=== PATIENT | female | born 1960 | race Caucasian/White ===

== ENCOUNTER 2022-03-20 18:59 | Inpatient (IN) | payer BC, OTHER, SELFPAY ==
[2022-03-20] VITALS (12 sets, daily range): BP systolic 113–145; BP diastolic 50–90; PULSE 91–115; RESP 9–20; O2SAT 90–99
--- NOTE | ~2022-03-20 | XR_ITS ---
EXAMINATION: XR chest 1V portable DATE: 03/20/2022 19:41 INDICATION: Dyspnea. Supraventricular tachycardia. TECHNIQUE: frontal view of the chest was obtained. COMPARISON: Chest CT dated 03/29/2017 FINDINGS: Patient is rotated towards the left. Azygos lobe and fissure in the right upper lung zone. Calcified nodules in the right lower lung zone consistent with old granulomatous disease. Opacities extending b etween the apex of the heart and the left costophrenic angle corresponding to a small pericardial fat pad and adjacent lingular atelectasis/scarring. No new airspace opacities, pulmonary edema, pleural effusion or pneumothorax. The cardiomediastinal silhouette is normal. IMPRESSION: 1. No acute cardiopulmonary disease. Reviewed, dictated and finalized at location A.
--- NOTE | 2022-03-20 19:18 | ECG_ITS ---
Measurements Intervals [place] Rate: 120 P: 60 OR: 124 QRS: 30 QRSD: 90 T: 61 QT: 282 QTc: 400 Interpretive Statements SINUS TACHYCARDIA ABNORMAL RHYTHM ECG NO PREVIOUS ECG AVAILABLE FOR COMPARISON Electronically Signed On 03-21-2022 7:16:10 CDT by Richard Corea M.D.
--- NOTE | 2022-03-20 19:23 | ED.GENADULT ---
HPI - General Adult General Chief complaint: Arrhythmia/Palpitations Stated complaint: hr 200's Time Seen by Provider: 03/20/22 19:14 History of Present Illness HPI narrative: This is a 62-year-old female with history of asthma and COPD presenting the ED for rapid heart rate. The patient was actually an urgent care which she wanted to be evaluated for COVID due to exposure in her family. At the urgent care she was found to have a heart rate in the 200s. EMS was called and she was brought to the hospital. EMS was unable to obtain a blood pressure EN route or an IV. When the patient arrived here she was converted from a heart rate of 222to a heart rate of 120. Patient has no history of SVT. She is not complaining of chest pain or palpitations at this time. She is still complaining of mild dyspnea. She has also had flu-like symptoms including some weakness chills and nausea. She has not had any vomiting or diarrhea. Patient has no history of blood clots, recent surgeries or cancers. Patient does not have lower extremity edema or history of heart failure. She is not vaccinated against COVID-19. Related Data Home Medications Medication Instructions Recorded Confirmed albuterol sulfate 90 mcg/actuation inhalation 03/20/22 03/20/22 aerosol inhaler amlodipine 2.5 mg tablet mg 03/20/22 atorvastatin 40 mg tablet mg 03/20/22 calcium carbonate 600 mg calcium mg 03/20/22 (1,500 mg) tablet clotrimazole-betamethasone 1 topical 03/20/22 %-0.05 % lotion cyclobenzaprine 10 mg tablet mg 03/20/22 dulaglutide 3 mg/0.5 mL mg subcut 03/20/22 subcutaneous pen injector (Trulicity) duloxetine 30 mg capsule,delayed mg PO 03/20/22 release duloxetine 60 mg capsule,delayed mg PO 03/20/22 release empagliflozin 10 mg tablet mg 03/20/22 (Jardiance) estradiol 0.01% (0.1 mg/gram) vaginal 03/20/22 vaginal cream fluticasone furoate 200 inhalation 03/20/22 mcg-vilanterol 25 mcg/dose inhalation powder (Breo Ellipta) hydrochlorothiazide 25 mg tablet mg 03/20/22 insulin detemir U-100 100 unit/mL unit subcut 03/20/22 (3 mL) subcutaneous pen (Levemir FlexTouch U-100 Insulin) metformin 1,000 mg tablet mg 03/20/22 montelukast 10 mg tablet mg 03/20/22 olmesartan 20 mg tablet mg 03/20/22 omeprazole 20 mg capsule,delayed mg 03/20/22 release Allergies Allergy/AdvReac Type Severity Reaction Status Date / Time ibuprofen Allergy Intermediate ESOPHAGEAL Verified 03/20/22 22:48 SPASMS bupropion Allergy Mild Other Verified 03/20/22 22:48 codeine Allergy Mild ITCH, Verified 03/20/22 22:48 NAUSEA propoxyphene Allergy Mild Unknown Verified 03/20/22 22:48 simvastatin Allergy Mild RASH Verified 03/20/22 22:48 tetracycline Allergy Mild RASH Verified 03/20/22 22:48 adhesive tape Allergy Unknown Unknown Verified 03/20/22 22:48 prednisone AdvReac Mild VOMITING Verified 03/20/22 22:48 Review of Systems Review of Systems: CONSTITUTIONAL: Denies night sweats. EYES: No eye pain ENT: Denies rhinorrhea CARDIOVASCULAR: Denies palpitations RESPIRATORY: Denies hemoptysis GASTROINTESTINAL: Denies hematemesis GENITOURINARY: Denies hematuria. SKIN: Denies rash MUSCULOSKELETAL: Denies myalgia. NEUROLOGIC: Denies weakness. PSYCHIATRIC: Denies delusions PMFSH Past Medical History Medical History (Updated 03/20/22 @ 23:53 by Stephen Salgado MD) COPD (chronic obstructive pulmonary disease) Diabetes Esophageal spasm Fibromyalgia HTN (hypertension) Spigelian hernia Surgical History Surgical History (Updated 03/20/22 @ 19:27 by Stephen Salgado MD) History of bladder surgery History of cholecystectomy Previous back surgery Social History Social History (Updated 03/20/22 @ 19:27 by Stephen Salgado MD) Social History: Patient denies alcohol use, remote tobacco use, remote marijuana Exam Narrative: APPEARANCE: When patient 1st arrived her heart rate was over 200 she was pale and diapho
[2022-03-20] MEDS: LACTATED RINGERS 1,000 ML 999 ML IV CONT (19:27)
[2022-03-20 19:44] LABS: Basophils Percent Auto 0.6 % (0.2-1.2); Eosinophils Percent Auto 0.3 % (0-4.4); Hematocrit 48.8 % (37.0-47.0); Hemoglobin 14.6 g/dL (12.0-15.0); Immature Granulocyte Absolute 0.14 K/mm3 (0.00-0.031); Lymphocytes Absolute Auto 1.51 K/mm3 (0.9-3.2); Lymphocytes Percent Auto 21.4 % (18.3-44.2); Mean Corpuscular HGB Conc 29.9 g/dl (32-36); Mean Corpuscular Hemoglobin 27.6 pg (26-34); Mean Corpuscular Volume 92.2 fl (80-100); Mean Platelet Volume 9.7 fl (7.4-10.4); Monocytes Absolute Auto 0.7 K/mm3 (0.1-0.6); Monocytes Percent Auto 9.8 % (2.6-8.5); Neutrophils Absolute Auto 4.7 K/mm3 (1.3-6.7); Neutrophils Percent Auto 65.9 % (45.5-73.1); Platelet Count Result 295 k/mm3 (150-375); Red Blood Count 5.29 M/mm3 (4.2-5.4); Red Cell Distribution Width 17.1 % (11.5-14.5); White Blood Count 7.1 K/mm3 (4.5-10.0)
--- NOTE | 2022-03-20 19:51 | PC.NURSE ---
19:51 blood glucose 240 mg/dL
[2022-03-20 19:54] LABS: Anion Gap 12 mmol/L (8-16); Blood Urea Nitrogen 25 mg/dL (7-17); Calcium 8.7 mg/dL (8.4-10.2); Carbon Dioxide 32 mmol/L (22-30); Chloride 95 mmol/L (98-107); Estimated CRCL calculation 84 ml/min; Estimated Glomerular Filt Rate > 60; Glucose 243 mg/dL (65-110); INR 0.9; Potassium 3.8 mmol/L (3.4-5.0); Sodium 139 mmol/L (137-145)
[2022-03-20 19:55] LABS: Magnesium 1.8 mg/dL (1.6-2.3)
[2022-03-20 19:55] LABS: Glucose Point of Care 240 mg/dl (65-105)
[2022-03-20 19:56] LABS: Partial Thromboplastin Time 30.9 SECONDS (22.3-36.8)
[2022-03-20 20:01] LABS: Hypochromasia 1+ (NORMAL); Ovalocytes 1+ (NORMAL); Platelet Estimate Adequate (Adequate)
[2022-03-20 20:12] LABS: NT Pro B Type Natriuretic Pept 226 pg/mL (5-100)
[2022-03-20 20:22] LABS: SARS-CoV-2 RNA PCR Positive
[2022-03-20] MEDS: ASPIRIN 81 MG CHEWABLE TABLET 324 MG PO (20:49)
[2022-03-20 20:53] LABS: D Dimer 0.35 ug/mL (<0.48)
[2022-03-20 23:59] LABS: Alanine Aminotransferase 35 U/L (6-35); Albumin Level 3.6 g/dL (3.5-5.1); Alkaline Phosphatase 189 U/L (38-126); Anion Gap 8 mmol/L (8-16); Aspartate Amino Transferase 58 U/L (14-36); Bilirubin,Total 0.4 mg/dL (0.2-1.3); Blood Urea Nitrogen 18 mg/dL (7-17); Calcium 7.8 mg/dL (8.4-10.2); Carbon Dioxide 35 mmol/L (22-30); Chloride 97 mmol/L (98-107); Estimated CRCL calculation 113 ml/min; Estimated Glomerular Filt Rate > 60; Glucose 133 mg/dL (65-110); Potassium 3.8 mmol/L (3.4-5.0); Sodium 140 mmol/L (137-145)
[2022-03-21] VITALS (19 sets, daily range): BP systolic 120–149; BP diastolic 59–83; PULSE 78–103; RESP 15–20; TEMP 36.2–36.8; O2SAT 93–100; BMI 34.2
--- NOTE | 2022-03-21 | ECHO_ITS ---
Patient Info Name: Darlyn Zhu Age: 62 years : 1960 Gender: Female Ht: 66 in Wt: 212 lbs BSA: 2.15 m2 HR: 93 bpm BP: 139 / 78 mmHg Heart Rhythm: Sinus Rhythm Technical Quality: Good Exam Date: 03/21/2022 9:23 AM Exam Location: [facility] Pulmonary Patient Status: Inpatient Admit Date: 03/21/2022 Staff Ordering Physician: Rkii Salinas DO Grubber: Dominique Wheatley [facility] Attending Provider: Fiordaliza Johnson Exam Type: CA echo doppler color flow Study Info Indications I47.1 - Supraventricular tachycardia Complete two-dimensional, color flow and Doppler transthoracic echocardiogram is performed. Summary 1. Complete two-dimensional, color flow and Doppler transthoracic echocardiogram is performed. 2. There is mild concentric increased left ventricular wall thickness. 3. Normal left ventricular systolic function. 4. Mild mitral annular calcification. Left Ventricle Left ventricular chamber dimension is normal. There is mild concentric increased left ventricular wall thickness. The left ventricular diastolic function is grade I diastolic dysfunction. Normal left ventricular systolic function. Right Ventricle Right ventricular chamber dimension is normal. Left Atria Left atrial chamber dimension is normal. Right Atria Right atrial chamber dimension is normal. Aortic Valve The aortic valve is normal. Pulmonic Valve The pulmonic valve is not well visualized. Mitral Valve The mitral valve has normal leaflets. The mitral valve annulus is mildly calcified. Tricuspid Valve The tricuspid valve leaflets are normal. Pericardium/Pleural The pericardium appears normal. Aorta The aortic root size at the sinus of Valsalva is normal. Left Ventricular Outflow Tract Name Value Normal LVOT 2D LVOT Diameter 2.2 cm LVOT Doppler LVOT Peak Gradient 3 mmHg LVOT Mean Gradient 2 mmHg LVOT VTI 22 cm LVOT VTI/AV VTI Ratio 1.0 LVOT Stroke Volume 81 ml LVOT CO 6.7 l/min LVOT CI 3.1 l/min/m2 Pulmonic Valve Name Value Normal PV Doppler PV Peak Gradient 4 mmHg Mitral Valve Name Value Normal MV Doppler MV Decel [place] 967 cm/s2 MV PHT 29 ms MV Area (PHT) 7.6 cm2 4.0-5.0 MV Diastolic Function
[2022-03-21 00:38] LABS: Troponin I 0.132 ng/mL (0.000-0.034)
--- NOTE | 2022-03-21 01:27 | ADMGEN ---
This patient, Darlyn Zhu, was admitted to IMU Room 204-01 on 03/21/22 at 0114. Patient/family oriented to hospital policies and general routines including ID bracelet, bed and alarms, visiting hours, pain management, procedures, bathroom and other care routines, personal items, smoking policy, room service/diet, and visiting hours. Information on how to activate the Rapid Response Team has been discussed. Patient/Family are encouraged to report perceived risks to care and to ask questions if they do not understand what they are told or what they should do.
--- NOTE | 2022-03-21 04:41 | PM.IMHP ---
H&P: HPI History of Present Illness Date/Time: 03/21/22 04:41 Chief Complaint: SOB, symptomatic SVT Narrative: Greater than 30 minute spent reviewing chart, evaluating, treating, counseling patient. Anticipate a greater than 48 hour admission, will admit as inpatient. 62-year-old female past medical history of COPD, type 2 diabetes on insulin, HTN, fibromyalgia, Raynaud's phenomenon with esophageal spasms. Presents with shortness of breath for the past day. Patient reports her grandchildren came to visit her a couple of days ago, and they were found to be COVID positive. Patient's began to have significant malaise and was also found to be COVID positive yesterday. Patient herself began to have significant malaise and shortness of breath. She became dizzy and lightheaded and went to urgent care for further evaluation. Upon arrival to urgent care, patient's heart rate found to be in the 200s. Patient was reportedly very diaphoretic. EMS was called, and EN route patient was noted to be altered. EMS attempted to obtain blood pressure, however was not able to get a reading. By the time patient arrived to the ED, patient was more alert and heart rate down to the 110s. Blood pressure stable on arrival. Patient found to be slightly hypoxic into the upper 80s, improved with 2 L nasal cannula. Patient now states she feels much better. Denies fevers/chills, sore throat, muscle aches, nausea/vomiting, diarrhea/constipation, dysuria/hematuria. Patient does report dry cough. Patient found to be COVID positive on arrival. Other labs remarkable for normal white count. Initial troponin 0.05, subsequent troponin 0.132. EKG showing sinus tach with heart rate in 120s. Chest x-ray clear. Patient given dose of Decadron. Of note, patient is unvaccinated Review of Systems Review of Systems: Ten point ROS reviewed, and negative unless otherwise specified per HPI [facility] Past Medical History Medical History (Updated 03/21/22 @ 04:52 by Riki Salinas DO) COPD (chronic obstructive pulmonary disease) Diabetes Esophageal spasm Fibromyalgia HTN (hypertension) Spigelian hernia Surgical History Surgical History (Updated 03/20/22 @ 19:27 by Stephen Salgado MD) History of bladder surgery History of cholecystectomy Previous back surgery Social History Social History (Updated 03/20/22 @ 19:27 by Stephen Salgado MD) Social History: Patient denies alcohol use, remote tobacco use, remote marijuana Smoking packs per day: 2 Smoking cigarettes per day: 40.0 Years smoked: 35 Smoking pack-years: 70.00 Smoking status: Former smoker Tobacco type: cigarettes Second hand tobacco smoke exposure: No Alcohol intake: never Substance use: never Substance use type: does not use Spiritual care concerns: No Meds Home Medications and Allergies Home Medications Medication Instructions Recorded Confirmed Type albuterol sulfate 90 mcg/actuation 2 inh inhalation Q4H PRN Shortness 03/20/22 03/21/22 History aerosol inhaler Of Breath Or Wheezing amlodipine 2.5 mg tablet 2.5 mg PO BID 03/20/22 03/21/22 History atorvastatin 40 mg tablet 40 mg PO QHS 03/20/22 03/21/22 History calcium carbonate 600 mg calcium 1,200 mg PO DAILY 03/20/22 03/21/22 History (1,500 mg) tablet clotrimazole-betamethasone 1 1 applic topical DAILY PRN Itching 03/20/22 03/21/22 History %-0.05 % lotion cyclobenzaprine 10 mg tablet 10 mg PO TID PRN Muscle Spasm 03/20/22 03/21/22 History dulaglutide 3 mg/0.5 mL 3 mg subcut WEEKLY 03/20/22 03/21/22 History subcutaneous pen injector (Trulicity) duloxetine 30 mg capsule,delayed 30 mg PO HS 03/20/22 03/21/22 History release duloxetine 60 mg capsule,delayed 60 mg PO HS 03/20/22 03/21/22 History release empagliflozin 10 mg tablet 10 mg PO DAILY 03/20/22 03/21/22 History (Jardiance) estradiol 0.01% (0.1 mg/gram) vaginal 03/20/22 History vaginal cream fluticasone furoate 200 1 inh
[2022-03-21 05:04] LABS: Basophils Percent Auto 0.8 % (0.2-1.2); Eosinophils Percent Auto 0.6 % (0-4.4); Hematocrit 44.1 % (37.0-47.0); Hemoglobin 13.5 g/dL (12.0-15.0); Immature Granulocyte Percent A 1.9 % (0-0.5); Lymphocytes Absolute Auto 1.15 K/mm3 (0.9-3.2); Lymphocytes Percent Auto 22.3 % (18.3-44.2); Mean Corpuscular HGB Conc 30.6 g/dl (32-36); Mean Corpuscular Hemoglobin 28.2 pg (26-34); Mean Corpuscular Volume 92.1 fl (80-100); Monocytes Absolute Auto 0.1 K/mm3 (0.1-0.6); Monocytes Percent Auto 2.7 % (2.6-8.5); Neutrophils Absolute Auto 3.7 K/mm3 (1.3-6.7); Neutrophils Percent Auto 71.7 % (45.5-73.1); Platelet Count Result 291 k/mm3 (150-375); Red Blood Count 4.79 M/mm3 (4.2-5.4); Red Cell Distribution Width 16.7 % (11.5-14.5); White Blood Count 5.2 K/mm3 (4.5-10.0)
[2022-03-21 05:13] LABS: INR 0.9
[2022-03-21 05:15] LABS: Alanine Aminotransferase 36 U/L (6-35); Estimated CRCL calculation 117 ml/min; Estimated Glomerular Filt Rate > 60
[2022-03-21 05:24] LABS: Hemoglobin A1C 7.4 % (<5.7)
[2022-03-21 05:27] LABS: Troponin I 0.134 ng/mL (0.000-0.034)
[2022-03-21 05:37] LABS: Alanine Aminotransferase 38 U/L (6-35); Albumin Level 3.5 g/dL (3.5-5.1); Alkaline Phosphatase 197 U/L (38-126); Anion Gap 8 mmol/L (8-16); Aspartate Amino Transferase 64 U/L (14-36); Bilirubin,Total 0.4 mg/dL (0.2-1.3); Blood Urea Nitrogen 16 mg/dL (7-17); Calcium 8.6 mg/dL (8.4-10.2); Carbon Dioxide 32 mmol/L (22-30); Chloride 97 mmol/L (98-107); Estimated CRCL calculation 117 ml/min; Estimated Glomerular Filt Rate > 60; Glucose 213 mg/dL (65-110); Potassium 4.5 mmol/L (3.4-5.0); Sodium 137 mmol/L (137-145)
[2022-03-21] MEDS: CALCIUM GLUCONATE 1,000 MG/10 ML VIAL 1000 MG IV PUSH (05:45)
[2022-03-21] MEDS: REMDESIVIR 200 MG/NS 250 ML 200 MG/250 ML BAG 250 MG IVPB (06:02)
[2022-03-21 06:07] LABS: Thyroid Stimulating Hormone 0.318 uIU/mL (0.465-4.680)
[2022-03-21 08:45] LABS: Glucose Point of Care 213 mg/dl (65-105)
[2022-03-21] MEDS: CALCIUM CARBONATE (OSCAL) 500 MG TABLET 1000 MG PO (09:32)
[2022-03-21] MEDS: OLMESARTAN MEDOXOMIL 20 MG TABLET PO (09:32)
[2022-03-21] MEDS: CHOLECALCIFEROL 1,000 UNITS TABLET 5000 UNITS PO (09:32)
[2022-03-21] MEDS: METOPROLOL TARTRATE 6.25 MG TABLET PO ×2 (09:32→21:11)
[2022-03-21] MEDS: hydroCHLOROthiazide 25 MG TABLET PO (09:32)
[2022-03-21] MEDS: PANTOPRAZOLE 40 MG TABLET PO (09:32)
[2022-03-21] MEDS: amLODIPine BESYLATE 2.5 MG TABLET PO (09:32)
[2022-03-21] MEDS: ENOXAPARIN 40 MG/0.4 ML SYRINGE SUB-Q (09:33)
[2022-03-21] MEDS: INSULIN ASPART (*BKC) 100 UNITS/ML SUB-Q ×2 (09:33→17:29)
[2022-03-21 11:53] LABS: Free T4 Free Thyroxine 1.14 ng/mL (0.78-2.19)
[2022-03-21 12:16] LABS: Glucose Point of Care 174 mg/dl (65-105)
--- NOTE | 2022-03-21 12:33 | PM.CNCAR ---
Assessment and Plan Assessment and plan (1) Paroxysmal supraventricular tachycardia: Code(s): I47.1 - Supraventricular tachycardia Status: Acute Plan This is a 62-year-old woman with the background of hypertension diabetes COPD and Raynaud's phenomenon. She enters the hospital after being found to be in SVT with which she was remarkably be minimally symptomatic. She spontaneously has converted to sinus rhythm and is asymptomatic this morning. She describes having had 2 previous heart evaluations with catheterization is being done for chest pain evaluation with negative results. She has no significant abnormalities on her cardiovascular exam at this time. I am going to recommend transitioning her calcium channel selvin to diltiazem in hopes of preventing recurrences of her SVT. When she does get discharged from the hospital I will arrange follow-up for this in the office. While she is in the hospital I will follow her with you. Richard Corea MD [facility] History of Present Illness History of Present Illness Consult date/time: 03/21/22 12:33 Reason For Visit: covid Narrative: This is a 62-year-old lady I am seeing at the request of the hospitalist because of supraventricular tachycardia with which she was seen in the emergency room and admitted last evening. The patient is not known to have any significant cardiac problems in the past. The history is somewhat interesting in that she was largely asymptomatic of this. She went to an Urgent Care Center seeking COVID testing because several family members have been at a family gathering have tested positive for COVID and she wanted to get tested. She states that she has been having some recent onset of symptoms of more exertional fatigability a but no other dramatic symptoms and really no direct awareness of tachycardia or palpitations. While she was in the urgent care center her vital signs showed her to be very tachycardic she was sent to the emergency room where electrocardiogram I believe on route showed SVT with a narrow QRS and arrhythmia most typical of AV node reentry. She has no history of anything like this in the past and she spontaneously reverted back to sinus rhythm. The ER physician's note states she appeared to be somewhat diaphoretic and short of breath when this was going on which of course is not surprising. She was not having any chest pain or other symptoms. She was admitted to IMU where she remained 204 and has not had any arrhythmias since then. Since converting out of this last evening she has been asymptomatic. The patient reports no prior history of cardiac problems. She has had cardiac catheterization at least 2 or 3 times in the past a consistently with normal results. She had an episode of chest pain that occurred while she was feeling ill on a trip in [place] many years ago. An angiogram at a hospital was apparently normal at that time. She describes having had another angiogram he done here at [facility] a long time ago which was also negative. She states physicians have told her on a couple of occasions the symptoms appear to be resulting from a soft gel spasm rather than coronary disease. Her past medical history is primarily remarkable for hypertension, diabetes COPD and Raynaud's phenomenon. Review of Systems Constitutional: Constitutional: Reports no additional constitutional complaints Eyes: Eyes: Reports no additional eye complaints ENT: Reports system reviewed and no additional complaints, except as documented Cardiovascular: Cardiovascular: Reports as per HPI Respiratory: Respiratory: Reports dyspnea Gastrointestinal: Gastrointestinal: Reports as per HPI Musculoskeletal: Musculoskeletal: Reports no additional musculoskeletal complaints Integumentary/Breasts: Skin/Breast: Reports system reviewed and no additional complaints, except as docu Neurologic: Reports system reviewed and no additional complaints, except a
--- NOTE | 2022-03-21 12:47 | PM.IMPN ---
Progress Note: A&P Assessment and Plan (1) COVID: Code(s): U07.1 - COVID-19 Status: Acute Assessment and Plan: - Patient unvaccinated, citing that she was told that the Vaccine was made from aborted fetus material and she is pro-life. - Continue Decadron and Remdesivir with Albuterol p.r.n., - Continue Telemetry given her recent PSVT. - Continue supplemental oxygen and titrate oxygen as needed. - CPAP/BiPap at HS (2) Paroxysmal supraventricular tachycardia: Code(s): I47.1 - Supraventricular tachycardia Status: Acute Assessment and Plan: - Suspect secondary to a combination of underlying COPD as well as acute infection causing hypoxia. - ECHO performed and result is pending. - Cardiology consulted and changed her CCB to Diltiazem. - Continue Telemetry (3) Fibromyalgia: Code(s): M79.7 - Fibromyalgia Status: Acute Assessment and Plan: - Continue Cymbalta and Flexeril (4) Diabetes: Code(s): E11.9 - Type 2 diabetes mellitus without complications Status: Acute Assessment and Plan: - Hold Jardiance. - Continue Lantus 54 units HS - Continue SSI moderately dosed. - Continue Trulicity when it is brought in from home. - HgbA1C is 7.4. (5) HTN (hypertension): Code(s): I10 - Essential (primary) hypertension Status: Acute Assessment and Plan: - Continue HCTZ, and change Amlodipine to Diltiazem. (6) COPD (chronic obstructive pulmonary disease): Code(s): J44.9 - Chronic obstructive pulmonary disease, unspecified Status: Acute Assessment and Plan: - Continue Breo and Singulair (7) Raynauds disease: Code(s): I73.00 - Raynaud's syndrome without gangrene Status: Acute Assessment and Plan: - Continue Olmesartan Time Spent With Patient Time with patient: 25 - 35 minutes Subjective Date/time seen: 03/21/22 0930 This pt was examined at the bedside this AM in interval assessment. She was admitted overnight with COVID, Acute Hypoxic Respiratory Failure, and SVT. She has no complaints of CP this morning, has had interval improvement in her respiratory status and is now on 1-2L supplemental oxygen. She is receiving Remdesivir and Dexamethasone therapy and was evaluated by Cardiology today. She is going to be transitioned to Diltiazem in place of her CCB in hopes of preventing any further SVT. Dr. Corea is in agreement of following up with her in the office upon discharge. Review of Systems Review of Systems: All systems reviewed & are unremarkable except as noted in HPI and below Exam Const: General: comfortable and no acute distress HENMT: General nose exam: Normal nares present and no epistaxis Mouth: Yes moist mucous membranes Eyes: General: appearance normal, both eyes and all related structures Sclera: sclerae normal and normal sclerae Pupils: Equal, round and reactive pupils present EOM: EOMs intact bilaterally Neck: Neck: supple and no JVD Resp: Effort & Inspection: normal respiratory effort Auscultation: clear to auscultation bilaterally Cardio: Rate: regular rate Rhythm: regular rhythm Heart sounds: no gallops, no murmurs and no rubs GI: Inspection: non-distended GI Palp: Yes Soft to palpation, No Tenderness to palpation present (GI) and No Guarding due to palpation present (GI) Auscultation: normal bowel sounds Skin: General skin exam: normal color and no rashes or lesions noted Wounds: no wounds Neuro: General: gait normal Speech: normal speech Motor exam (neuro): 5/5 motor strength present throughout and Normal motor muscle tone present throughout Sensory Exam: normal sensation Extrem: General: normal to inspection, no edema and no pedal edema Other: Freely and equally MAEW without deficits. Psych: Mental Status: mental status grossly normal Affect: normal affect Objective Data Vital Signs Vital Signs: Vital Signs - 24 hr 03/20/22 19:02 03/20/22 19
--- NOTE | 2022-03-21 13:32 | PHAR ---
The patient's home med of Trulicity 3mg/0.5ml has been verified.
[2022-03-21 16:43] LABS: Glucose Point of Care 292 mg/dl (65-105)
[2022-03-21 20:34] LABS: Glucose Point of Care 247 mg/dl (65-105)
[2022-03-21] MEDS: DULoxetine HCL 60 MG CAPSULE.DR PO (21:11)
[2022-03-21] MEDS: ASPIRIN 81 MG ENTERIC TABLET PO (21:11)
[2022-03-21] MEDS: ATORVASTATIN 40 MG TABLET PO (21:11)
[2022-03-21] MEDS: ZINC SULFATE 220 MG CAPSULE PO (21:11)
[2022-03-21] MEDS: CYANOCOBALAMIN 500 MCG TABLET PO (21:11)
[2022-03-21] MEDS: MONTELUKAST SODIUM 10 MG TABLET PO (21:11)
[2022-03-21] MEDS: INSULIN GLARGINE (*BKC) 100 UNITS/ML 54 UNITS SUB-Q (21:12)
[2022-03-21] MEDS: CYCLOBENZAPRINE HCL 10 MG TABLET PO (21:13)
[2022-03-22] VITALS: PULSE 91
[2022-03-22] MEDS: guaiFENesin 600 MG/DEXTROMETHORPHAN 30 MG SR TAB 12 HR 1 TAB PO ×2 (00:52→09:40)
--- NOTE | 2022-03-22 03:48 | PC.NURSE ---
This patient, Darlyn Zhu, was transferred to room 312 on 03/22/22 at 0347. Personal belongings sent with patient. Report given to SEAMUS Schulte. Appropriate documentation sent with patient.
--- NOTE | 2022-03-22 03:49 | PC.NURSE ---
Lexy received from IMU per bed. Report received from SEAMUS Garcia.
[2022-03-22 04:00] VITALS: PULSE 101
[2022-03-22] MEDS: CYCLOBENZAPRINE HCL 10 MG TABLET PO (04:02)
[2022-03-22 04:15] VITALS: PULSE 90; RESP 17; O2SAT 97
[2022-03-22 04:32] VITALS: BP 164/80; PULSE 105; RESP 20; TEMP 36.4; O2SAT 95
[2022-03-22 06:25] LABS: Basophils Percent Auto 0.1 % (0.2-1.2); Hematocrit 46.2 % (37.0-47.0); Hemoglobin 14.2 g/dL (12.0-15.0); Immature Granulocyte Absolute 0.06 K/mm3 (0.00-0.031); Immature Granulocyte Percent A 0.8 % (0-0.5); Lymphocytes Absolute Auto 2.13 K/mm3 (0.9-3.2); Lymphocytes Percent Auto 27.3 % (18.3-44.2); Mean Corpuscular HGB Conc 30.7 g/dl (32-36); Mean Corpuscular Hemoglobin 28.2 pg (26-34); Mean Corpuscular Volume 91.7 fl (80-100); Mean Platelet Volume 9.9 fl (7.4-10.4); Monocytes Absolute Auto 0.6 K/mm3 (0.1-0.6); Monocytes Percent Auto 8.2 % (2.6-8.5); Neutrophils Percent Auto 63.6 % (45.5-73.1); Platelet Count Result 292 k/mm3 (150-375); Red Blood Count 5.04 M/mm3 (4.2-5.4); Red Cell Distribution Width 16.8 % (11.5-14.5); White Blood Count 7.8 K/mm3 (4.5-10.0)
[2022-03-22 06:46] LABS: INR 0.9; Prothrombin Time 11.9 Seconds (11.1-14.7)
[2022-03-22 06:48] LABS: Alanine Aminotransferase 30 U/L (6-35); Alkaline Phosphatase 164 U/L (38-126); Anion Gap 10 mmol/L (8-16); Aspartate Amino Transferase 54 U/L (14-36); Bilirubin,Total 0.7 mg/dL (0.2-1.3); Blood Urea Nitrogen 19 mg/dL (7-17); Calcium 9.2 mg/dL (8.4-10.2); Carbon Dioxide 32 mmol/L (22-30); Chloride 96 mmol/L (98-107); Estimated CRCL calculation 117 ml/min; Estimated Glomerular Filt Rate > 60; Glucose 222 mg/dL (65-110); Magnesium 1.7 mg/dL (1.6-2.3); Potassium 4.4 mmol/L (3.4-5.0); Sodium 138 mmol/L (137-145)
[2022-03-22 08:00] VITALS: BP 121/69; PULSE 82; RESP 20; TEMP 35.6; O2SAT 93
--- NOTE | 2022-03-22 09:36 | P.PN_ITS ---
Progress Note: A&P Assessment and Plan (1) COVID: Code(s): U07.1 - COVID-19 Status: Acute Assessment and Plan: * Unvaccinated * Continue remdesivir, decadron an albuterol * Continue supplementary oxygen and titrate as tolerated. Patient currently satting 93% warm air * CPAP/BiPAP at HS (2) Paroxysmal supraventricular tachycardia: Code(s): I47.1 - Supraventricular tachycardia Status: Acute Assessment and Plan: * Resolved * Cardiology consulted recommend transitioning her calcium channel selvin to diltiazem * No significant finding with the echo * Continue telemetry (3) Fibromyalgia: Code(s): M79.7 - Fibromyalgia Status: Acute Assessment and Plan: * Continue Cymbalta and Flexeril (4) Diabetes: Code(s): E11.9 - Type 2 diabetes mellitus without complications Status: Acute Assessment and Plan: * Blood sugar currently under 300 * Jardiance on hold * Continue sliding scale with Accu-Cheks hypoglycemic protocol * Will continue Trulicity once it was brought by family members * Hemoglobin A1c 7.4 * Continue home Lantus at 54 units HS (5) HTN (hypertension): Code(s): I10 - Essential (primary) hypertension Status: Acute Assessment and Plan: * Blood pressure stable (6) Raynauds disease: Code(s): I73.00 - Raynaud's syndrome without gangrene Status: Acute (7) COPD (chronic obstructive pulmonary disease): Code(s): J44.9 - Chronic obstructive pulmonary disease, unspecified Status: Acute Assessment and Plan: * Stable * Continue albuterol and Singulair was supplemented oxygen needed Subjective Date/time seen: 03/22/22 09:36 Objective Data Vital Signs Vital Signs: Vital Signs - 24 hr 03/21/22 11:21 03/21/22 10:00 03/21/22 12:00 Temperature Pulse Rate 92 Respiratory Rate Blood Pressure Pulse Oximetry 98 93 Oxygen Delivery Room Air Room Air 03/21/22 12:00 03/21/22 12:00 03/21/22 16:00 Temperature 98.1 F Pulse Rate 94 93 103 H Respiratory Rate 16 Blood Pressure 147/76 H Pulse Oximetry 94 Oxygen Delivery 03/21/22 16:00 03/21/22 20:00 03/21/22 21:11 Temperature 98.2 F Pulse Rate 102 H 78 97 Respiratory Rate 16 18 Blood Pressure 140/82 Pulse Oximetry 95 Oxygen Delivery 03/21/22 20:00 03/21/22 20:00 03/21/22 20:00 Temperature 98.1 F Pulse Rate 97 97 94 Respiratory Rate 20 20 Blood Pressure 120/59 L Pulse Oximetry 98 98 Oxygen Delivery Room Air 03/22/22 00:00 03/22/22 04:00 03/22/22 04:32 Temperature 97.6 F Pulse Rate 91 101 H 105 H Respiratory Rate 20 Blood Pressure 164/80 H Pulse Oximetry 95 Oxygen Delivery 03/22/22 04:15 03/22/22 08:00 Temperature 96.0 F L Pulse Rate 90 82 Respiratory Rate 17 20 Blood Pressure 121/69 Pulse Oximetry 97 93 Oxygen Delivery Autopap Intake/Output Intake/Output: Intake & Output 03/19/22 03/20/22 03/21/22
--- NOTE | 2022-03-22 09:36 | WPDPN ---
Progress Note: A&P Assessment and Plan (1) COVID: Code(s): U07.1 - COVID-19 Status: Acute Assessment and Plan: Unvaccinated Continue remdesivir, decadron an albuterol Continue supplementary oxygen and titrate as tolerated. Patient currently satting 93% warm air CPAP/BiPAP at HS (2) Paroxysmal supraventricular tachycardia: Code(s): I47.1 - Supraventricular tachycardia Status: Acute Assessment and Plan: Resolved Cardiology consulted recommend transitioning her calcium channel selvin to diltiazem No significant finding with the echo Continue telemetry (3) Fibromyalgia: Code(s): M79.7 - Fibromyalgia Status: Acute Assessment and Plan: Continue Cymbalta and Flexeril (4) Diabetes: Code(s): E11.9 - Type 2 diabetes mellitus without complications Status: Acute Assessment and Plan: Blood sugar currently under 300 Jardiance on hold Continue sliding scale with Accu-Cheks hypoglycemic protocol Will continue Trulicity once it was brought by family members Hemoglobin A1c 7.4 Continue home Lantus at 54 units HS (5) HTN (hypertension): Code(s): I10 - Essential (primary) hypertension Status: Acute Assessment and Plan: Blood pressure stable (6) Raynauds disease: Code(s): I73.00 - Raynaud's syndrome without gangrene Status: Acute (7) COPD (chronic obstructive pulmonary disease): Code(s): J44.9 - Chronic obstructive pulmonary disease, unspecified Status: Acute Assessment and Plan: Stable Continue albuterol and Singulair was supplemented oxygen needed Subjective Date/time seen: 03/22/22 09:36 Objective Data Vital Signs Vital Signs: Vital Signs - 24 hr 03/21/22 11:21 03/21/22 10:00 03/21/22 12:00 Temperature Pulse Rate 92 Respiratory Rate Blood Pressure Pulse Oximetry 98 93 Oxygen Delivery Room Air Room Air 03/21/22 12:00 03/21/22 12:00 03/21/22 16:00 Temperature 98.1 F Pulse Rate 94 93 103 H Respiratory Rate 16 Blood Pressure 147/76 H Pulse Oximetry 94 Oxygen Delivery 03/21/22 16:00 03/21/22 20:00 03/21/22 21:11 Temperature 98.2 F Pulse Rate 102 H 78 97 Respiratory Rate 16 18 Blood Pressure 140/82 Pulse Oximetry 95 Oxygen Delivery 03/21/22 20:00 03/21/22 20:00 03/21/22 20:00 Temperature 98.1 F Pulse Rate 97 97 94 Respiratory Rate 20 20 Blood Pressure 120/59 L Pulse Oximetry 98 98 Oxygen Delivery Room Air 03/22/22 00:00 03/22/22 04:00 03/22/22 04:32 Temperature 97.6 F Pulse Rate 91 101 H 105 H Respiratory Rate 20 Blood Pressure 164/80 H Pulse Oximetry 95 Oxygen Delivery 03/22/22 04:15 03/22/22 08:00 Temperature 96.0 F L Pulse Rate 90 82 Respiratory Rate 17 20 Blood Pressure 121/69 Pulse Oximetry 97 93 Oxygen Delivery Autopap Intake/Output Intake/Output: Intake & Output 03/19/22 03/20/22 03/21/22 03/22/22 23:59 23:59 23:59 23:59 Intake Total 2420 490 Output Total 3580 Balance -1160 490 Meds/Results Medications: Active Medications Generic Name Dose Route Start Last Admin Trade Name Freq PRN Reason Stop Dose Admin Albuterol 2 puff 03/21/22 10:10 Albuterol Sulfate (*Sp) Inhaler INHALATION Q4H PRN Shortness Of Breath Or Wheezin Aspirin 81 mg 03/21/22 21:00 03/21/22 21:11 Aspirin 81 Mg Enteric Tablet PO 81 mg HS [facility] Administration Atorvastatin Calcium 40 mg 03/21/22 21:00 03/21/22 21:11 Atorvastatin 40 Mg Tablet PO 40 mg QHS BERYL Administration Calcium Carbonate 1,000 mg 03/21/22 09:00 03/21/22 09:32 Calcium Carbonate (Oscal) 500 Mg Tablet PO 1,000 mg QAM BERYL Administration Cyanocobalamin 500 mcg 03/21/22 21:00 03/21/22 21:11 Cyanocobalamin 500 Mcg Tablet PO 500 mcg HS [facility] Administration Cyclobenzaprine HCl 10 mg 03/21/22 04:37 03/22/22 04:02 Cyclobenzaprine Hcl 10 Mg Tablet PO 10
[2022-03-22] MEDS: ENOXAPARIN 40 MG/0.4 ML SYRINGE SUB-Q (09:39)
[2022-03-22] MEDS: CHOLECALCIFEROL 1,000 UNITS TABLET 5000 UNITS PO (09:40)
[2022-03-22] MEDS: dilTIAZem HCL CD 180 MG CAP.ER.24H PO (09:40)
[2022-03-22] MEDS: OLMESARTAN MEDOXOMIL 20 MG TABLET PO (09:40)
[2022-03-22] MEDS: METOPROLOL TARTRATE 6.25 MG TABLET PO (09:41)
[2022-03-22] MEDS: CALCIUM CARBONATE (OSCAL) 500 MG TABLET 1000 MG PO (09:41)
[2022-03-22] MEDS: hydroCHLOROthiazide 25 MG TABLET PO (09:41)
[2022-03-22] MEDS: INSULIN ASPART (*BKC) 100 UNITS/ML SUB-Q (09:41)
[2022-03-22] MEDS: PANTOPRAZOLE 40 MG TABLET PO (09:41)
[2022-03-22 11:53] VITALS: BP 136/93; PULSE 105; RESP 20; TEMP 36; O2SAT 92
--- NOTE | 2022-03-22 11:59 | PC.NURSE ---
02 sats 96% after 45 minutes on RA. Pt does not use oxygen at home.
--- NOTE | 2022-03-22 13:12 | PM.DS ---
DS: Admitting Diagnosis Discharge Date 03/22/2022 Admitting Diagnosis covid, SVT DS: Discharge Diagnosis Discharge Diagnosis (1) COVID: Code(s): U07.1 - COVID-19 Status: Acute Assessment and Plan: Unvaccinated Continue remdesivir, decadron an albuterol Continue supplementary oxygen and titrate as tolerated. Patient currently satting 93% warm air CPAP/BiPAP at HS Patient will discharge home with albuterol and dexamethasone (2) Paroxysmal supraventricular tachycardia: Code(s): I47.1 - Supraventricular tachycardia Status: Acute Assessment and Plan: Resolved Cardiology consulted recommend transitioning her calcium channel selvin to diltiazem No significant finding with the echo Continue telemetry Patient will need to follow up with leg assembler (3) Fibromyalgia: Code(s): M79.7 - Fibromyalgia Status: Acute Assessment and Plan: Continue Cymbalta and Flexeril (4) Diabetes: Code(s): E11.9 - Type 2 diabetes mellitus without complications Status: Acute Assessment and Plan: Blood sugar currently under 300 Jardiance on hold Continue sliding scale with Accu-Cheks hypoglycemic protocol Will continue Trulicity once it was brought by family members Hemoglobin A1c 7.4 Continue home Lantus at 54 units HS Patient with discharge home with NovoLog 5 units with blood sugar greater than 300 with the use of dexamethasone. Patient has agreed to call her primary care physician her blood sugar was uncontrolled (5) HTN (hypertension): Code(s): I10 - Essential (primary) hypertension Status: Acute Assessment and Plan: Blood pressure stable (6) Raynauds disease: Code(s): I73.00 - Raynaud's syndrome without gangrene Status: Acute (7) COPD (chronic obstructive pulmonary disease): Code(s): J44.9 - Chronic obstructive pulmonary disease, unspecified Status: Acute Assessment and Plan: Stable Continue albuterol and Singulair was supplemented oxygen needed DS: Summary Hospital Course Reason for hospitalization: [facility] [place] COVID Hospital Course: 62-year-old female past medical history of COPD, type 2 diabetes on insulin, HTN, fibromyalgia, Raynaud's phenomenon with esophageal spasms.? Patient reports of shortness of breath for the past few day.? Patient reports her grandchildren came to visit her a couple of days ago, and they were found to be COVID positive.? Patient's began to have significant malaise and was also found to be COVID positive .? Patient herself began to have significant malaise and shortness of breath.? She became dizzy and lightheaded and went to urgent care for further evaluation.? Upon arrival to urgent care, patient's heart rate found to be in the 200s. Patient was admitted into our hospital for SVT and COVID. Today agrees patient agrees that her condition has much improved she is no longer experiencing shortness of breath. She was discharged home today with dexamethasone she will also be given NovoLog and instructions for treatment of her blood sugars above 300. She also agrees to contact her primary care physician if her blood sugars not controlled. Patient notes that she has albuterol at home she can use her at home albuterol if she experience any shortness of breath. Patient denies any chest pain, nausea vomiting diarrhea, lightheadedness, vertigo, or dizziness,. Time Spent with Patient Time attestation: Total time spent providing and/or coordinating discharge services: Exam Narrative: General: Pleasant, no obvious distress noted HEENT: PERRLA, Mucous Membranes Moist and Donald, Nares Patent, Sclera Clear Neck: JVD, Supple Pulmonary: Clear to Auscultation, Normal Air Movement Cardiovascular: No Murmurs, Gallops, or Rubs, Regular Rhythm, Regular Rate Abdominal: Abdomen Soft, Non-Distended, Normal Bowel Sounds Extremities: Normal Pulses Integumentary: No Abnormalities [place]
== END 2022-03-22 15:25 | disposition home or self-care (01) | DRG 178 ==
LOC: ANHED 23:53 → ANHIMU 03-21 00:50 → ANH3MEDSUR 03-22 13:19 → ANHIMU 03-25 08:34
PROVIDERS: Nurse Practitioner Adult Health; Admitting Provider Internal Medicine; Emergency Provider Emergency Medicine; PCP Internal Medicine; Visit Provider Nurse Practitioner
DX: U07.1 COVID-19 (principal); I47.1 Supraventricular tachycardia; E11.65 Type 2 diabetes mellitus with hyperglycemia; I10 Essential (primary) hypertension; I73.00 Raynaud's syndrome without gangrene; J44.9 Chronic obstructive pulmonary disease, unspecified; M79.7 Fibromyalgia; R09.02 Hypoxemia; Z28.310 Unvaccinated for COVID-19; Z79.84 Long term (current) use of oral hypoglycemic drugs; Z79.4 Long term (current) use of insulin; Z79.899 Other long term (current) drug therapy; Z90.49 Acquired absence of other specified parts of digestive tract; Z87.891 Personal history of nicotine dependence; Z79.82 Long term (current) use of aspirin
CPT/HCPCS: 36415; 71045; 80048; 80053; 82565; 82948; 83036; 83735; 83880; 84439; 84443; 84460; 84484; 85025; 85380; 85610; 85730; 93005; 93306; 94640; 96360; 96361; 99285; A9270; C9803; J0248; J0610; J1100; J1650; J1815; J7120; U0003; U0005

== ENCOUNTER 2023-09-19 16:12 | Emergency (ER) | payer BC, OTHER, SELFPAY ==
[2023-09-19 16:31] VITALS: BP 111/57; PULSE 91; RESP 18; TEMP 36.4; O2SAT 92
[2023-09-19] MEDS: TETANUS,DIPHTHERIA,AC PERTUSSIS ADULT (0.5 ML) BOOSTRIX IM (17:40)
--- NOTE | 2023-09-19 18:24 | ED.GENADULT ---
HPI - General Adult General Chief complaint: Wound/Laceration Stated complaint: Left Hand Laceration Source: patient Mode of arrival: ambulatory Limitations: no limitations History of Present Illness HPI narrative: Patient presents for evaluation of laceration to left index finger. She was chopping an onion just prior to arrival when she accidentally cut the left index finger. She denies any considerable pain in the affected area. No loss of range of motion. No paresthesias. She is right-hand dominant. She is diabetic. States home blood sugars are fairly well controlled. She does not smoke. She is not up-to-date on tetanus. Related Data Home Medications Medication Instructions Recorded Confirmed albuterol sulfate 90 mcg/actuation 2 inh inhalation Q4H PRN Shortness 03/20/22 09/19/23 aerosol inhaler Of Breath Or Wheezing atorvastatin 40 mg tablet 40 mg PO QHS 03/20/22 09/19/23 calcium carbonate 600 mg calcium 1,200 mg PO DAILY 03/20/22 09/19/23 (1,500 mg) tablet clotrimazole-betamethasone 1 1 applic topical DAILY PRN Itching 03/20/22 09/19/23 %-0.05 % lotion cyclobenzaprine 10 mg tablet 10 mg PO TID PRN Muscle Spasm 03/20/22 09/19/23 dulaglutide 3 mg/0.5 mL 3 mg subcut WEEKLY 03/20/22 09/19/23 subcutaneous pen injector (Trulicity) duloxetine 30 mg capsule,delayed 30 mg PO HS 03/20/22 09/19/23 release duloxetine 60 mg capsule,delayed 60 mg PO HS 03/20/22 09/19/23 release empagliflozin 10 mg tablet 10 mg PO DAILY 03/20/22 09/19/23 (Jardiance) estradiol 0.01% (0.1 mg/gram) 1 applic vaginal 3XW 03/20/22 09/19/23 vaginal cream fluticasone furoate 200 1 inh inhalation DAILY 03/20/22 09/19/23 mcg-vilanterol 25 mcg/dose inhalation powder (Breo Ellipta) hydrochlorothiazide 25 mg tablet 25 mg PO DAILY 03/20/22 09/19/23 insulin detemir U-100 100 unit/mL 60 unit subcut QHS 03/20/22 09/19/23 (3 mL) subcutaneous pen (Levemir FlexTouch U-100 Insulin) metformin 1,000 mg tablet 1,000 mg PO BID 03/20/22 09/19/23 montelukast 10 mg tablet 10 mg PO QHS 03/20/22 09/19/23 olmesartan 20 mg tablet 20 mg PO DAILY 03/20/22 09/19/23 omeprazole 20 mg capsule,delayed 20 mg PO HS 03/20/22 09/19/23 release ascorbic acid (vitamin C) 1,000 mg 1 g PO HS 03/21/22 09/19/23 tablet aspirin 81 mg tablet,delayed 81 mg PO HS 03/21/22 09/19/23 release cholecalciferol (vitamin D3) 125 125 mcg PO DAILY 03/21/22 09/19/23 mcg (5,000 unit) capsule cyanocobalamin (vitamin B-12) 500 500 mcg PO HS 03/21/22 09/19/23 mcg tablet (Vitamin B-12) diphenhydramine HCl 25 mg tablet 50 mg PO HS 03/21/22 09/19/23 (Benadryl Allergy) echinacea 500 mg capsule 1,000 mg PO HS 03/21/22 09/19/23 pen needle, diabetic 31 gauge x 03/21/22 09/19/2312/29 (BD Ultra-Fine Short Pen Needle) pyridoxine (vitamin B6) 500 mg 500 mg PO HS 03/21/22 09/19/23 tablet sennosides 8.6 mg tablet (Senokot) 17.2 mg PO HS 03/21/22 09/19/23 thiamine HCl (vitamin B1) 250 mg 250 mg PO HS 03/21/22 09/19/23 tablet vitamin A 10,000 unit tablet 10,000 unit PO HS 03/21/22 09/19/23 zinc 50 mg tablet 50 mg PO HS 03/21/22 09/19/23 Allergies Allergy/AdvReac Type Severity Reaction Status Date / Time bupropion Allergy Mild Other Verified 09/19/23 16:28 codeine Allergy Mild ITCH, Verified 09/19/23 16:28 NAUSEA propoxyphene Allergy Mild Unknown Verified 09/19/23 16:28 simvastatin Allergy Mild RASH Verified 09/19/23 16:28 tetracycline Allergy Mild RASH Verified 09/19/23 16:28 adhesive tape Allergy Unknown Unknown Verified 09/19/23 16:28 prednisone AdvReac Mild VOMITING Verified 09/19/23 16:28 Review of Systems Review of Systems: CONSTITUTIONAL: Denies fever, chills, or sweats. EYES: Denies visual changes, redness, or discharge. ENT: Denies rhinorrhea, congestion, sore throat, or otalgia. CARDIOVASCULAR: Denies chest pain, palpitations, or edema. RESPIRATORY: Denies cough or dyspnea. GASTROINTESTINAL: Denies abdominal pain, nausea, vomiting, or diar
== END 2023-09-19 18:40 | disposition home or self-care (01) ==
PROVIDERS: Emergency Provider Nurse Practitioner; PCP Internal Medicine
DX: S61.211A Laceration without foreign body of left index finger without damage to nail, initial encounter (principal); W45.8XXA Other foreign body or object entering through skin, initial encounter; Y93.G9 Activity, other involving cooking and grilling; Z23 Encounter for immunization; Z87.891 Personal history of nicotine dependence; J44.9 Chronic obstructive pulmonary disease, unspecified; E11.9 Type 2 diabetes mellitus without complications; Z79.4 Long term (current) use of insulin; Z79.84 Long term (current) use of oral hypoglycemic drugs; M79.7 Fibromyalgia; I10 Essential (primary) hypertension; Z79.82 Long term (current) use of aspirin
CPT/HCPCS: 12001; 90471; 90715; 99213; G0463

== ENCOUNTER 2025-01-01 08:57 | Emergency (ER) | payer BC, OTHER, SELFPAY ==
[2025-01-01 09:00] VITALS: BP 133/73; PULSE 77; RESP 22; O2SAT 88
[2025-01-01 09:02] VITALS: BP 126/77; PULSE 82; RESP 24; O2SAT 92
[2025-01-01 09:04] VITALS: BP 126/77; PULSE 75; RESP 16; TEMP 36.4; O2SAT 98
--- OUTSIDE RECORDS SUMMARY | 2025-01-01 09:12 | XMS_ITS | Clinical Summary ---
Author Organization [facility] Address [address] [place] [address] Phone Care Team Providers Care Ux Manager Name Role Phone Constantino Babb MD Primary Care Provider [phone] Allergies Active Allergy Reactions Criticality Noted Date Comments Bupropion Hcl Shortness of Breath/Wheezing,Nausea and Vomiting High 12/31/2015 Ibuprofen Muscle Pain Low 12/31/2015 Iodinated Contrast Media Hives High 12/31/2015 Niacin Muscle Pain Low 12/31/2015 Prednisone Shortness of Breath/Wheezing,Nausea and Vomiting High 12/31/2015 Simvastatin Rash Low 12/31/2015 Tetracycline Rash Low 12/31/2015 Medications atorvastatin (LIPITOR) 10 mg tablet Take 10 mg by mouth Daily LATE. Active metFORMIN (GLUCOPHAGE) 1,000 mg tablet Take 1,000 mg by mouth 2 times daily with meals. Active esomeprazole (NEXIUM) 20 mg Capsule, Delayed Release(E.C.) Take 40 mg by mouth daily before breakfast. Active thiamine (VITAMIN B-1) 100 mg tablet Take 1 Tablet by mouth daily. Active benzonatate (TESSALON) 200 mg capsule Take 200 mg by mouth 3 times daily as needed for Cough. Active losartan (COZAAR) 50 mg tablet Take 50 mg by mouth daily. Active folic acid (FOLVITE) 400 mcg Tablet Take 400 mcg by mouth daily. Active DULoxetine (CYMBALTA) 30 mg Capsule, Delayed Release(E.C.) Take 30 mg by mouth 2 times daily. Active hydrochlorothia zide 25 mg tablet Take 25 mg by mouth daily. Active oxyCODONE (ROXICODONE) 5 mg tablet Take 5 mg by mouth every 4 hours as needed for Pain. Active cyclobenzaprine (FLEXERIL) 10 mg tablet Take 10 mg by mouth 3 times daily as needed for Spasm. Active oxyCODONE (OXYCONTIN) 40 mg Controlled Release 12 hour tablet Take 40 mg by mouth every 12 hours. Active insulin glargine (LANTUS) 100 unit/mL pen syringe Inject 50 Units by subcutaneous injection daily at bedtime. Active pregabalin (LYRICA) 75 mg Capsule Take 75 mg by mouth daily. Active OLANZapine-FLUo xetine (SYMBYAX) 6-25 mg Capsule Take 1 Capsule by mouth daily at bedtime. Active OLANZapine-FLUo xetine (SYMBYAX) 12-25 mg Capsule Take 1 Capsule by mouth daily at bedtime. Active Social History Tobacco Use Types Packs/Day Years Used Date Smoking Tobacco: Never Smokeless Tobacco: Never Alcohol Use Standard Drinks/Week Comments No 0 (1 standard drink = 0.6 oz pur e alcohol) Comments Unknown Sex and Gender Information Value Date Recorded Sex Assigned at Not on file Legal Sex Female 12:35 PM CDT Gender Identity Not on file Sexual Orientation Not on file Last Filed Vital Signs Vital Sign Reading Time Taken Comments Blood Pressure 114/55 12/31/2015 5:36 PM CDT Pulse 110 12/31/2015 5:36 PM CDT Temperature 37 C (98.6 F) 12/31/2015 12:46 PM CDT Respiratory Rate 18 12/31/2015 5:36 PM CDT Oxygen Saturation 94% 12/31/2015 5:36 PM CDT Inhaled Oxygen Concentration - - Weight 99.8 kg (220 lb) 12/31/2015 12:46 PM CDT Height 165.1 cm (5' 5 ) 12/31/2015 12:46 PM CDT Body Mass Index 36.61 12/31/2015 12:46 PM CDT Plan of Treatment Health Maintenance Due Date Last Done Comments DTAP/TDAP/TD VACCINES (1 - Tdap) 1981 HPV/Cotest (21-29) 1983 CERVICAL CANCER SCREENING 1992 HPV/Cotest (30-65) 1992 PAP SMEAR 1992 BREAST CANCER SCREENING 2002 COLORECTAL SCREENING 2007 Colorectal Cancer Screening 2007 FIT-DNA Q 3 years 2007 FIT/FOBT Q 1 year 2007 Flex Sig/CT Colonography Q 5 years 2007 ZOSTER VACCINE (1 of 2) 2012 INFLUENZA VACCINE (#1) 2024 RSV VACCINE (60+ or ) (1 - 1-dose 75+ series) 2037 [address]inda [address] Volt/Gen[employer] PPO Care Teams Ux Manager Relationship Specialty Start Date End Date Constantino Babb MD [address] [place] [id number] PCP - General Internal Medicine 12/31/15
--- OUTSIDE RECORDS SUMMARY | 2025-01-01 09:12 | XMS_ITS | Continuity of Care Document ---
Author Name [facility] Organization [facility] Care Team Providers Care Plodder Operator Name Role Phone [facility] Unavailable Unavailable Problems Combined list of problems from Department of Defense and Veterans Affairs facilities. It does not include entries that were removed or entered in error. Problem Status Onset Date Problem Type Date of Resolution Comments Source Outpatient Physician Consultation Active Condition DoD family problems Active Condition DoD visit for: refer patient without exam or treatment Inactive Condition DoD BACKACHE Active Condition DoD difficulty breathing (dyspnea) Active Condition DoD MENOPAUSAL DISORDER Active Condition Do D CHRONIC PAIN Active Condition DoD feared medical condition not demonstrated Active Condition DoD TENDONITIS CALCIFIC Active Condition Do D joint pain, localized in the left shoulder Active Condition DoD VITAMIN B1 DEFICIENCY Active Condition DoD IMPAIRED FASTING GLUCOSE Active Condition DoD midback pain Active Condition DoD ADJUSTMENT DISORDER GRIEF REACTION Active Condition DoD Vaccines Prophylactic Need Against Influenza Inactive Condition Do D PHOBIA Inactive Condition DoD ASTIGMATISM Active Condition DoD blurry vision Active Condition DoD CELLULITIS Inactive Condition DoD skin: a rash [as Sx] Active Condition D oD visit for: preoperative exam Inactive Condition DoD X-Ray Active Condition DoD HERNIATED INTERVERTEBRAL DISC Active Condition DoD PNEUMONIA Inactive Condition DoD Patient Education - Dietary Active Condition DoD NEPHROLITHIASIS Active Condition DoD NEPHROLITHIASIS LEFT Active Condition D oD lower back pain Active Condition DoD DIABETES MELLITUS DIABETIC AUTONOMIC NEUROPATHY Active Condition DoD DIABETES MELLITUS POORLY CONTROLLED Active Condition DoD ANKLE SPRAIN RIGHT Inactive Condition Do D ACNE Active Condition DoD Preventive Medicine Estab Patient Checkup Adult 40-64 Inactive Condition DoD LENTIGO SENILIS Active Condition DoD SEBORRHEIC KERATOSIS Active Condition D oD Preventive Medicine New Patient Evaluation Adult 40-64 Inactive Condition DoD UPPER RESPIRATORY INFECTION Active Condition DoD Laboratory Studies Inactive Condition Do D DERMATOCHALASIS BOTH EYES Active Condition DoD PRESBYOPIA Active Condition DoD REFRACTIVE ERROR - MYOPIA Active Condition DoD ALLERGIC RHINITIS Active Condition DoD ESOPHAGITIS CHRONIC REFLUX Active Condition DoD visit for: issue repeat prescription for medication Inactive Condition 13 RX SERTRALINE--PO 50MG TAB~T1 PO DAILY RF1 #90 DS90 on 23 Mar 2008@2566 (Not Dispensed) . . . . . . . . . . . . . . . . . CLEARB [email or web address] script written by Dr. Stanford for 'BD ultra fine needles for Lantus Solar Star Insulin Pen DoD nausea Inactive Condition DoD RHINITIS CHRONIC Active Condition DoD DIABETES MELLITUS TYPE 1 Active Condition DoD DIABETES MELLITUS TYPE 2 Active Condition DoD Patient Education Diabetes Dietary Counseling Active Condition INADEQUATE ENER GY INTAKE RT NUTRITION-RELATED KNOWLEDGE DEFICIT AEB HER SKIPPING EVENING MEAL AND HAVING JUNK FOOD SUCH A LOW CHO ICE CREAM BAR FOR AFTERNOON SNACK.Believe pt has a better understanding of how to eat healthfully and that she will begin to incorporate today's recommendations into her diet. DoD Patient Education - Diabetes Inactive Condition DoD VERTIGO Inactive Condition Reasurranc e. Do not feel at this point related to sugars. DoD DIABETES MELLITUS Active Condition Co ntinue current regimen. Recheck A1C 02/20. DoD CANDIDIASIS VAGINAL Inactive Condition D oD Hysterectomy Active Condition DoD ROUTINE GYNECOLOGICAL EXAM WITH CERVICAL PAP SMEAR Inactive Condition annual exam - h ad mammogram in Mar 22 DoD CERVICALGIA Active Condition pt expla ined that w/out the results from the ER that ordering and MRI is not justified; will check normal views here and will start w/ conservative therapy (PT etc) if fails then will eval as necessary DoD Patient Education Active Condition Di scussed the challenges of remaining smoke-free. Encouraged to avoid a first cigarette. Keep up with medical and dental visits. Keep in touch with [facility] for next year. Will also meet with client as needed to provide additional support. DoD NICOTINE DEPENDENCE Active Condition Do D itching (pruritus) Inactive Condition Do D ASTHMA Active Condition DoD HYPERTENSION (SYSTEMIC) Active Condition Pulse elevated will increase Toprol XL to 50 mg. DoD ESOPHAGEAL REFLUX Active Condition Ad equately controlled with Nexium. Contributes to the airway symptoms. DoD GOUT Active Condition discussed dietary management DoD ATYPICAL CHEST PAIN Inactive Condition take ecotrin once a day DoD LUMBAGO Active Condition DoD Other Physical Therapy Inactive Condition DoD BACK STRAIN SACROILIAC REGION CHRONIC LUMBOSACRAL STRAIN Active Condition Will refe r to Phys Therapy for stretching/streng thening, HEP, other modalities as indicated. f/u 1 month for reeval. DoD ASTHMA MODERATE PERSISTENT Active Condition DoD HYPERLIPIDEMIA Active Condition ALTER ED LIPIDS RT EXCESSIVE SIMPLE SUGAR INTAKE AND IMPAIRED NUTRIENT UTILIZATION AEB HER ELEVATED TG AND TOTAL CHOLESTEROL AND LOW HDL. DoD OSTEOARTHRITIS KNEE Active Condition Pt cannot take NSAIDs right now because of GERD/Almonte's. Continue Tylenol. Recommend trial of glucosamine/chond roitin, f/u 1 month. Pt meds changed to Prevacid, which hopefully will begin healing GERD/Almonte's. Consider Arthotec or Celebrex at reev DoD ESSENTIAL HYPERTENSION BENIGN Active Condition DoD ALMONTE'S ESOPHAGUS Active Condition will consult due to changes in symptoms DoD visit for: administrative purpose Inactive Condition Do D visit for: issue repeat prescription Inactive Condition DoD OBESITY Active Condition OBESITY RT PAST PHYSICAL INACTIVITY AND EXCESSIVE ENERGY INTAKE AEB HER ABOVE NORMATIVE STANDARD BMI FOR AGE AND GENDER. DoD ADJUSTMENT DISORDER WITH ANXIETY Active Condition Pt now agreeabl e to trial of SSRI - R/B/SEs reviewed. Will start sertraline as ordered below. f/u 1 month, sooner prn. No SI/HI. Spent 40 minutes with pt reviewing anxiety, treatment options, R/B/SEs. Also discussed dx of COPD by allergy - informed her that my interpretation of results suggest POSSIBLE early COPD and that pt has already taken most important step to minimize chance of progression, that is, quitting smoking. Pt congratulated, encouraged to continue abstinence. DoD visit for: issue medical certificate Inactive Condition DoD tobacco use Active Condition DoD HYPERCHOLESTEROLEMIA Active Condition D oD ESSENTIAL HYPERTENSION Active Condition DoD Administrative Evaluation Services Inactive Condition DoD ACUTE BRONCHITIS Inactive Condition cou nseled. rx: zpack, guaif, albuterol prn (warned).f/u with PCM in 1-2 weeks for reeval.consider switch from atenolol, given hx of RAD.f/u sooner prn. DoD anxiety Active Condition Trial of alprazolam as rx'd below. Pt refuses trial of SSRI at this time. Will discuss again at f/u. DoD Anticipatory Guidance: Tobacco Use Inactive Condition d/c tobacco DoD LOWER BACK SPRAIN Inactive Condition law spect anxiety, stress, unhappiness with life situation, morbid obesity and smoking are all contributing factors to cycle of back pain and muscle tension, pt has no other assoc sx to suggest other organ system involvement and s/p hysterectomy which r/o r DoD Medications Combined list of outpatient medications from Department of Defense and Veterans Affairs facilities.Medications provided include 1) outpatient medications from the last 15 months, and 2) patient-reported medications. Medication Details Route Status Patient Instructions Prescription Expires Prescription Number Last Dispense Date Ordering Provider Order Date Order Qty Source DULOXETINE HCL (duloxetine HCl), 30 MG, CAPSULE , ORAL, [email or web address], 1000 ea. BOTTLE Cancele d [id number] : 2023 0 Pharmac y Data Transac tion Service Facilit y ONDANSETRON ODT (ONDANSETRO N), 4 MG, TAB RAPDIS, ORAL, [facility], 30 ea. BLIST PACK Active [id number] 4 2023 9 Pharmac y Data Transac tion Service Facilit y ONDANSETRON ODT (ONDANSETRO N), 4 MG, TAB RAPDIS, ORAL, [facility], 30 ea. BLIST PACK Active [id number] 4 2023 9 Pharmac y Data Transac tion Service Facilit y ONDANSETRON ODT (ONDANSETRO N), 4 MG, TAB RAPDIS, ORAL, [facility], 30 ea. BLIST PACK Active [id number] 4 2023 9 Pharmac y Data Transac tion Service Facilit y ONDANSETRON ODT (ONDANSETRO N), 4 MG, TAB RAPDIS, ORAL, [facility], 30 ea. BLIST PACK Active [id number] 4 2023 9 Pharmac y Data Transac tion Service Facilit y ONDANSETRON ODT (ONDANSETRO N), 4 MG, TAB RAPDIS, ORAL, [facility], 30 ea. BLIST PACK Active [id number] 4 2023 2 Pharmac y Data Transac tion Service Facilit y Allergies, Adverse Reactions, Alerts Combined list of allergies from Department of Defense and Veterans Affairs facilities. It does not include entries that were removed or entered in error. Substance Category Reaction Severity Reaction type Status Date Reported Comments Source CODEINE Drug allergy (disorder) Unknown active 4 Tripler [facility], [place] OTHER {Cla } Drug allergy (disorder) Rash active [address] [place] [address] Michael CARRIZALES ([facility]) PREDNISONE (PREDNISONE) Drug allergy (disorder) Rash active [address] [place] [address] Michael CARRIZALES ([facility]) TETRACYCLINE (TETRACYCLINE) Drug allergy (disorder) Unknown active 4 Tripler [facility] [place] WELLBUTRIN (BUPROPION HCL) Drug allergy (disorder) Unknown [facility] [place] [place] ZOCOR (SIMVASTATIN) Drug allergy (disorder) Unknown active 4 [facility] [place] Immunizations Combined list of available immunizations from the Department of Defense and Veterans Affairs facilities. Immunization Series Date Given Administered By Site Reaction Lot Number CVX Code Drug Ornament Stitcher Status Comments Source influenza virus vaccine, split virus (incl. purified surface antigen)-reti red CODE 1 2009 Unknown, Provider [id number] 15 Sanofi Pasteur ([facility]) complet ed influenza virus vaccine, split virus (incl. purified surface antigen)- retired CODE DoD influenza virus vaccine, split virus (incl. purified surface antigen)-reti red CODE 1 2008 Unknown, Provider [id number] 15 Sanofi Pasteur ([facility]) complet ed influenza virus vaccine, split virus (incl. purified surface antigen)- retired CODE DoD influenza virus vaccine, split virus (incl. purified surface antigen)-reti red CODE 1 2007 Unknown, Provider [id number] 15 Sanofi Pasteur ([facility]) complet ed influenza virus vaccine, split virus (incl. purified surface antigen)- retired CODE [facility] tetanus and diphtheria toxoids, adsorbed, preservative free, for adult use (2 Lf of tetanus toxoid and 2 Lf of diphtheria toxoid) 1 2002 Unknown, Provider [id number] 09 Sanofi Pasteur ([facility]) complet ed tetanus and diphtheri a toxoids, adsorbed, preservat chance free, for adult use (2 Lf of tetanus toxoid and 2 Lf of diphtheri a toxoid) DoD influenza virus vaccine, split virus (incl. purified surface antigen)-reti red CODE 1 2002 Unknown, Provider [id number] 15 Sanofi Pasteur ([facility]) complet ed influenza virus vaccine, split virus (incl. purified surface antigen)- retired CODE DoD pneumococcal polysaccharid e vaccine, 23 valent 1 2002 Unknown, Provider [id number] Merck ([facility]D) complet ed pneumococ chato polysacch aride vaccine, 23 valent DoD Encounters Combined list of: 1) Encounters from Department of Veterans Affairs facilities going backup to the last 18 months, not all VA inpatient encounters are included; 2) Encounters from the Department of Defense facilities going backup to 280 months. Location Location Details Encounter Type Encounter Number Reason For Visit Attending Provider ADM Date DC Date Status Disposition Source [facility] [place]( Family Practice [facility]ud) TELE CONSULT [id number] NEEDS REFILL ON MEDICAT ION LUCA WEIR 04/15 [facility] [facility] [facility] [place]) OUTPATIENT [id number] back pain SONI KING Kamar O 07/18 Released w/o Limitations [facility] [facility] [facility] [place] OUTPATIENT [id number] F/UP FOR BACK PROBLEM AURORA ALFONZO J 07/21 Released w/o Limitations [facility] [facility]) OUTPATIENT [id number] NON PRODUCT CHANCE COUGH ARTIS PENA Allyssa 07/28 Released w/o Limitations [facility] Cont[place]) [facility] TELE CONSULT [id number] CHARLEE LINE- DIZZNES S/PRESS URE ON FACE/NA WERNER RAMOS 09/04 [facility] [facility]) OUTPATIENT [id number] f/u BRAEDEN MALAVE 09/07 Released w/o Limitations [facility] [facility] TELE CONSULT [id number] NEEDS REFILL DURRENCE, TRACY A. 10/06 [facility] [facility] OUTPATIENT [id number] f/u for bp check AUREA GALVEZ 10/15 Released w/o Limitations [facility] [facility]) OUTPATIENT [id number] F/UP ASTHMA ATTACK- [facility] AUREA GALVEZ 10/20 Released w/o Limitations [facility] [facility] TELE CONSULT [id number] needs med today DURRENCE, TRACY A. 10/30 [facility] [facility]) OUTPATIENT [id number] ASTHMA RECHECK SAMUEL GARCIA 11/05 Released w/o Limitations [facility] [place] [facility] TELE CONSULT [id number] MED REFILL DURRENCE, TRACY A. 11/30 [facility] [facility] [facility]) OUTPATIENT [id number] [facility] MAXIMILIAN BOSTON 12/18 Released w/o Limitations [facility] [facility] [place] [facility] TELE CONSULT [id number] MED REFILL DURRENCE, TRACY A. 01/13 [facility]( [facility]) OUTPATIENT [id number] [facility] SONI Calzada 02/17 Released w/o Limitations [facility] TELE CONSULT [id number] needs med refill TODAY, PCSING THIS EVENING DURRENCE, TRACY A. 02/18 [place]( Family Pract[facility] [place]) [address] [place] [address])(Fam antony Practice Non-GME FHI1) TELE CONSULT [id number] Needs blood pressur e medicat ion ELISABETH Estrella 05/[address] [place] [address])(F amily Practic e Non-GME FHI1) [address] [place] [address] Michael [facility])(Fam antony Practice Non-GME FHI2) OUTPATIENT [id number] new pt needs to discuss meds and medical issue JOSSELIN STANFORD 06/07 Released w/o Limitations [address] [place] [address] Michael [facility])(F amily Practic e Non-GME FHI2) [address] [place] [address] Michael [facility])(Phy sical Therapy) OUTPATIENT [id number] OUSMANE PRINCE 06/15 Released w/o Limitations [address] [place] [address] Michael [facility])(P hysical Therapy ) [address] [place] [address] Michael [facility])(Phy sical Therapy) OUTPATIENT [id number] BACK STRAIN SACROIL IAC REGION CHRONIC LUMBOSA CRAL STRAIN KASI HERNANDEZ 06/22 Released w/o Limitations [facility] [employer] ([facility])(P hysical Therapy ) [address] [place] [address] [employer] ([facility])([facility] antony Practice Non-GME FHI2) OUTPATIENT [id number] foot pain ZOHAIB JUDGE Good 08/20 Released w/o Limitations [facility] [employer] ([facility])(F amily Practic e Non-GME FHI2) [address] [place] [address] [employer] ([facility])([facility]) OUTPATIENT [id number] itching all over body KORTNEY HANNAH Yamil 08/26 Released w/o Limitations [facility] [employer] ([facility])(A Care Clinic) [address] [place] [address] [employer] ([facility]) OUTPATIENT [id number] f/u on asthma ZOHAIB JUDGE 09/03 Released w/o Limitations [facility] Michael RACHELB ([facility])(F amily Practic e Non-GME FHI1) [address] [place] [address] [employer] ([facility] F[facility]2) OUTPATIENT [id number] asthma CAT JONAS 03/10 Released w/o Limitations [facility] Michael RACHELB ([facility])(F amily Practic e Non-GME FHI2) [address] [place] [address] [employer] ([facility]) OUTPATIENT [id number] tobacco cessati on class JERROD NGO P 03/16 Released w/o Limitations [facility] [employer] ([facility])(F amily Practic e Non-GME FHI1) [facility] [employer] ([facility])([facility] antony Practice Non-GME FHI2) OUTPATIENT [id number] f/u asthma CATINA ANTUNEZ 03/17 Released w/o Limitations [facility] [employer] ([facility])(F amily Practic e Non-GME FHI2) [address] [place] [address] [employer] ([facility])([facility] antony Practice Non-GME FHI1) OUTPATIENT [id number] tobacco cessati on class #6 JERROD NGO P 04/27 Released w/o Limitations [address] [place] [address] Michael [facility])(F amily Practic e Non-GME FHI1) [address] [place] [address] Michael [facility])([employer] ecology) OUTPATIENT [id number] well women exam JA MIRELES L 06/30 Released w/o Limitations [address] [place] [address] Michael [facility])(G ynecolo gy) [address] [place] [address] Michael [facility])(Fam antony Practice Non-GME FHI1) TELE CONSULT [id number] SOLOMON Watts 07/[address] [place] [address] Michael [facility])(F amily Practic e Non-GME FHI1) [address] [place] [address] Michael [facility])([facility]) OUTPATIENT [id number] low bp, dizzy INNA PEPE 07/04 Released w/o Limitations [address] [place] [address] Michael [facility])(F amily Practic e Non-GME FHI2) [address] [place] [address] Michael [facility])([facility] FHI1) TELE CONSULT [id number] Medicat ion refill- SOLOMON Morin 08/[address] [place] [address] Michael [facility])(F amily Practic e Non-GME FHI1) [address] [place] [address] Michael [facility])([facility] antony Practice Non-GME FHI2) OUTPATIENT [id number] ongoing dizzine ss, poss r/t HTN meds? INNA PEPE 08/30 Released w/o Limitations [address] [place] [address] Michael [facility])(F amily Practic e Non-GME FHI2) [address] [place] [address] Michael [facility])([facility] Practice Non-GME FHI1) TELE CONSULT [id number] refill med/req uest modesto glynn - MIKY Diaz 08/[address] [place] [address])(F amily Practic e Non-GME FHI1) [address] [place] [address] Michael [facility])([facility]) OUTPATIENT [id number] new diabeti KARMEN Tomas 09/13 Released w/o Limitations [address] [place] [address] Michael B [facility])(N utritio nal Medicin e) [address] [place] [address] Michael [facility])(Fam natony Practice Non-GME FHI2) OUTPATIENT [id number] f/u diabete s INNA PEPE 09/14 Released w/o Limitations [address] [place] [address] ([facility])(F amily Practic e Non-GME FHI2) [address] [place] [address])([facility] antony Practice Non-GME FHI2) TELE CONSULT [id number] [facility] 09/[address] [place] [address] Michael [facility])(F amily Practic e Non-GME FHI2) [address] [place] [address])([facility] antony Practice Non-GME FHI2) TELE CONSULT [id number] PCM: milagros Stanford started lantus for new dx dm, states fingers ticks 200-275 . SOLOMON CASTELAN 09/[address] [place] [address] Michael [facility])(F amily Practic e Non-GME FHI2) [address] [place] [address] [facility])([facility] antony Practice Non-GME FHI2) OUTPATIENT [id number] f/u diabtyrone collins will melissa fs log JOSSELIN STANFORD 09/28 Released w/o Limitations [address] [place] [address] Michael [facility])(F amily Practic e Non-GME FHI2) [address] [place] [address])([facility] antony Practice Non-GME FHI1) TELE CONSULT [id number] Referra l roger -SOLOMON Morin 10/[address] [place] [address] Michael [facility])(F amily Practic e Non-GME FHI1) [address] [place] [address] Michael B [facility])([facility] antony Practice Non-GME FHI2) OUTPATIENT [id number] f/u diabete JOSSELIN Boland 10/24 Released w/o Limitations [address] [place] [address] Michael B [facility])(F amily Practic e Non-GME FHI2) [address] [place] [address])([facility]) OUTPATIENT [id number] ASTHMA LISA-SAMANTHA PIZARRO 10/26 Released w/o Limitations [address] [place] [address] Group Michael RAMOSB ([facility])(A llergy Resourc e Sharing ) [address] [place] [address] Michael B [facility])([facility] antony Practice Non-GME FHI1) TELE CONSULT [id number] call back - stanford SOLOMON CASTELAN 10/[address] [place] [address] Michael B ([facility])(F amily Practic e Non-GME FHI1) [address] [place] [address] Michael [facility])(Fam antony Practice Non-GME FHI1) TELE CONSULT [id number] call back/ol RODRIGO Solis 11/[address] [place] [address] Michael B [facility])(F amily Practic e Non-GME FHI1) [address] [place] [address] Michael B [facility])(All ergy Resource Sharing) OUTPATIENT [id number] skin test SAMANTHA HERNANDEZ 11/09 Released w/o Limitations [address] [place] [address] ([facility])(A llergy Resourc e Sharing ) [address] [place] [address] Michael [facility])([facility] antony Practice Non-GME FHI1) TELE CONSULT [id number] call back/ol ELISABETH Valverde 11/[address] [place] [address] Michael [facility])(F amily Practic e Non-GME FHI1) [address] [place] [address] Michael [facility])(Fam antony Practice Non-GME FHI2) OUTPATIENT [id number] elevate d BS/depr ession and anxiety medJOSSELIN Boland 11/15 Released w/o Limitations [address] [place] [address] Michael [facility])(F amily Practic e Non-GME FHI2) [address] [place] [address] Michael B [facility])(Fam antnoy Practice Non-GME FHI2) TELE CONSULT [id number] questio ns- SOLOMON Ca 11/[address] [place] [address] Michael [facility])(F amily Practic e Non-GME FHI2) [address] [place] [address] Michael [facility])(Fam antony Practice Non-GME FHI1) OUTPATIENT [id number] severe nausea x 3 days URBAN PEREIRA 11/22 Released w/o Limitations [address] [place] [address] Michael [facility])(F amily Practic e Non-GME FHI1) [address] [place] [address])([facility] TELE CONSULT [id number] refill med, call back/ol ELISABETH Valverde 11/[address] [place] [address])(F amily Practic e Non-GME FHI1) [address] [place] [address])([facility] F[facility]2) TELE CONSULT [id number] call back - SOLOMON Ca 12/[address] [place] [address])(F amily Practic e Non-GME FHI2) [address] [place] [address])([facility] F[facility]2) OUTPATIENT [id number] nausea x 15 days, back pain, muscle aches GEORGETTE WINTERS 12/05 Released w/o Limitations [address] [place] [address])(F amily Practic e Non-GME FHI2) [address] [place] [address])([facility]) TELE CONSULT [id number] PCM: Jared, pt states she's out of area and needs meds, [phone] SOLOMON CASTELAN 12/[address] [place] [address])(F amily Practic e Non-GME FHI2) [address] [place] [address])([facility]ME FHI2) OUTPATIENT [id number] f/u diabete s JOSSELIN STANFORD 01/03 Released w/o Limitations [address] [place] [address])(F amily Practic e Non-GME FHI2) [address] [place] [address])(Opt ometry) OUTPATIENT [id number] diabeti c eye exam ARIELLA FELDER 01/04 Released w/o Limitations [address] [place] [address])(O ptometr y) [address] [place] [address])([facility] FHI2) TELE CONSULT [id number] med refill -- MIKY Diaz 02/[address] [place] [address])(F amily Practic e Non-GME FHI2) [address] [place] [address])([facility] Practice Non-GME FHI1) TELE CONSULT [id number] SOLOMON Watts 03/[address] [place] [address])(F amily Practic e Non-GME FHI1) [address] [place] [address])([facility] antony Practice Non-GME FHI2) TELE CONSULT [id number] meds request - ELISABETH Madrigal 03/[address] [place] [address])(F amily Practic e Non-GME FHI2) [address] [place] [address])([facility] antony Practice Non-GME FHI2) OUTPATIENT [id number] SEVERE COUGH CONGEST INNA GONZALEZ 05/25 Released w/o Limitations [address] [place] [address])(F amily Practic e Non-GME FHI2) [address] [place] [address])([facility] antony Practice Non-GME FHI2) TELE CONSULT [id number] Rx Refill - SOLOMON Morin 06/[address] [place] [address])(F amily Practic e Non-GME FHI2) [address] [place] [address])([facility] ) OUTPATIENT [id number] New pt, HTN, HLP and multipl e chronic issues BHAVESH LUCAS 06/15 Released w/o Limitations [address] [place] [address] Michael [facility])(S cott Interna l Medicin e Tm) [address] [place] [address] Michael [facility])([facility] ) TELE CONSULT [id number] BHAVESH LUCAS 06/[address] [place] [address])(S cott Interna l Medicin e Tm) [address] [place] [address])([facility] ) OUTPATIENT [id number] f/u htn BHAVESH LUCAS 07/06 Released w/o Limitations [address] [place] [address] Michael [facility])(S cott Interna l Medicin e Tm) [address] [place] [address])([facility] ) TELE CONSULT [id number] need med refill MACARENA VALDES 08/22 [facility] Michael RACHELB ([facility])(S cott Interna l Medicin e Tm) [facility] Michael B ([facility])([facility] ) TELE CONSULT [id number] med refill MACARENA VALDES 09/11 [facility] Michael [facility] ([facility])(S cott Interna l Medicin e Tm) [facility] Michael [facility])([facility] ) OUTPATIENT [id number] BHAVESH Espinoza 09/21 Released w/o Limitations [facility] Michael B ([facility])(S cott Interna l Medicin e Tm) [facility] Michael Selma ([facility])([facility] ) TELE CONSULT [id number] Results BHAVESH LUCAS 10/02 [facility] Michael Selma ([facility])(S cott Interna l Medicin e Tm) [facility] Michael [facility])([facility] ) OUTPATIENT [id number] knot on forehea JOHANN Toribio 11/16 Released w/o Limitations [facility] Michael [facility] ([facility])(S cott Interna l Medicin e Tm) [facility] Michael [facility])([facility] ) TELE CONSULT [id number] Rx Refill MACARENA VALDES 11/26 [facility] Michael [facility] ([facility])(S cott Interna l Medicin e Tm) [facility] Michael [facility])([facility] ) OUTPATIENT [id number] BHAVESH Espinoza 12/13 Released w/o Limitations [facility] Michael RACHELSelma ([facility])(S cott Interna l Medicin e Tm) [facility] Michael B ([facility])([facility] ) TELE CONSULT [id number] NEEDS APT MACARENA VALDES 12/25 [facility] Michael B ([facility])(S cott Interna l Medicin e Tm) [facility] Michael B [facility])([facility] ) OUTPATIENT [id number] elevate d blood sugars, numbnes s right heel, sore throat MANPREET CASTELLON 12/26 Released w/o Limitations [address] [place] [address] Group Michael CARRIZALES ([facility])(S cott Interna l Medicin e Tm) [address] [place] [address] Michael CARRIZALES ([facility])([facility] ) TELE CONSULT [id number] Lab results BHAVESH LUCAS 01/[address] [place] [address] Michael CARRIZALES ([facility])(S cott Interna l Medicin e Tm) [address] [place] [address] Michael CARRIZALES ([facility])([facility] ) OUTPATIENT [id number]|2025-01-01 09:50:35|2025-01-01 09:50:35|PC.NURSE||||"ambulatory to bathroom and back to room with steady gait. "
--- OUTSIDE RECORDS SUMMARY | 2025-01-01 09:12 | XMS_ITS | Clinical Summary ---
Author Organization [facility] Address [address] [place] [address] Phone Care Team Providers Care Bar Attendant Name Role Phone Constantino Babb MD Primary Care Provider [phone] Allergies Active Allergy Reactions Criticality Noted Date Comments Bupropion Hcl Other (see Comments),Shortness of Breath High 12/31/2015 Codeine Other (see Comments),Itching,Vo miting 08/14/2004 Vomiting and itching. Ibuprofen Other (see Comments) Low 12/31/2015 Iodinated Contrast Media Hives High 12/31/2015 Niacin Other (see Comments) Low 12/31/2015 Prednisone Other (see Comments),Shortness of Breath,Vomiting,Itch ing High 09/03/2006 Simvastatin Rash Medium 06/09/2012 Rash on hands Tetracycline Rash Medium 08/14/2004 Medications Calcium Carbonate 1500 (600 Ca) MG Tablet 01/26/20 23 Active Cholecalciferol (Vitamin D3) 125 MCG (5000 UT) Capsule Take 125 mcg by mouth daily. 01/25/20 23 Active DULoxetine (CYMBALTA) [address] Particles TAKE 1 CAPSULE(30 MG) BY MOUTH DAILY 03/30/20 22 Active DULoxetine (CYMBALTA) [address] Particles TAKE 1 CAPSULE(60 MG) BY MOUTH DAILY 03/30/20 22 Active omeprazole (PriLOSEC) 20 MG CAPSULE DELAYED RELEASE TAKE 1 CAPSULE(20 MG) BY MOUTH DAILY 03/09/20 22 Active montelukast (SINGULAIR) 10 MG Tablet 1 tab(s) orally once a day 05/05/20 21 Active albuterol 108 (90 Base) MCG/ACT Aerosol Solution INHALE 2 PUFFS INTO THE LUNGS EVERY 4 HOURS NEEDED 03/16/20 22 Active Vitamin B-2 (RIBOFLAVIN) 100 MG Tablet 100 mg. 05/05/20 22 Active thiamine (VITAMIN B1) 100 MG Tablet Take 1 Tablet by mouth daily. Active aspirin EC 81 MG Tablet Delayed Response Take 81 mg by mouth. Active dilTIAZem CD (CARDIZEM CD) 180 MG CAPSULE SR 24 HR TAKE 1 CAPSULE(180 MG) BY MOUTH DAILY 04/30/20 22 Active ipratropium (ATROVENT) 0.03 % Solution 2 Sprays by Nasal route every 12 hours. 01/13/20 23 Active metFORMIN (GLUCOPHAGE) 1000 MG Tablet 1 tab(s) orally 2 times a day 05/22/20 14 Active Empagliflozin (JARDIANCE) 10 MG Tablet 1 tab(s) orally once a day (in the morning) 03/16/20 22 Active Fluticasone Furoate-Vilante rol (BREO ELLIPTA) 200-25 MCG/ACT AEROSOL POWDER, BREATH ACTIVATED 1 puff(s) inhaled once a day 04/09/20 21 Active olmesartan (BENICAR) 20 MG Tablet Take 20 mg by mouth. 05/05/20 21 Active hydroCHLOROthia zide 25 MG Tablet Take 25 mg by mouth daily. 02/25/20 23 Active Ascorbic Acid 100 MG Tablet Take 100 mg by mouth. Active magnesium oxide 250 MG Tablet 250 mg. Active vitamin E 100 UNIT Capsule Take 100 Units by mouth. Active Chelated Zinc 50 MG Tablet Take 150 mg by mouth. Active Cyanocobalamin (VITAMIN B-12 PO) Take 2,500 mcg by mouth daily. Active folic acid (FOLVITE) 400 MCG Tablet Take 800 mcg by mouth daily. Active diphenhydrAMINE (BENADRYL) 25 MG Capsule Take 25 mg by mouth in the morning and at bedtime. Active Echinacea 380 MG Capsule Take 760 mg by mouth in the morning and at bedtime. Active Psyllium (METAMUCIL PO) Take 6-7 Tablets by mouth daily. Active Collagen Hydrolysate, Bovine, Powder Take by mouth daily. Active docusate sodium (COLACE) 100 MG Capsule Take 100 mg by mouth daily. Active Vitamin B-6 (PYRIDOXINE) 100 MG Tablet Take 100 mg by mouth daily. Active estradiol (ESTRACE) 0.1 MG/GM Cream APPLY 1 GRAM INTRAVAGINALLY 3 TIMES EVERY WEEK 03/25/20 23 Active atorvastatin (LIPITOR) 40 MG Tablet 08/24/19 24 Active ondansetron (ZOFRAN-ODT) 4 MG TABLET DISPERSIBLE 10/03/19 24 Active Ozempic, 2 MG/DOSE, 8 MG/3ML Solution Pen-injector 2 mg by Subcutaneous route. 01/11/20 24 Active Tresiba FlexTouch 200 UNIT/ML Solution Pen-injector 60 Units by Subcutaneous route. 11/05/19 24 Active Zinc Sulfate (ZINC-220 PO) Take by mouth. quercetin Active Active Problems No known active problems Family History Medical History Relation Name Comments Diabetes Brother Heart Attack Father Diabetes Mother Heart Disease Mother Diabetes Sister Hypertension Sister Relation Name Status Comments Brother Father Mother Sister Social History Tobacco Use Types Packs/Day Years Used Date Smoking Tobacco: Former Cigarettes Q uit: 2006 Smokeless Tobacco: Former Tobacco Cessation:Counseling Given: No Alcohol Use Standard Drinks/Week Comments Never 0 (1 standard drink = 0.6 oz pur e alcohol) Comments Unknown Sex and Gender Information Value Date Recorded Sex Assigned at Not on file Legal Sex Female 10:53 AM CDT Gender Identity Not on file Sexual Orientation Not on file Last Filed Vital Signs Vital Sign Reading Time Taken Comments Blood Pressure 124/76 02/03/2024 1:50 PM CDT Pulse 90 02/03/2024 1:50 PM CDT Temperature 36.8 C (98.2 F) 02/03/2024 1:50 PM CDT Respiratory Rate 18 02/03/2024 1:50 PM CDT Oxygen Saturation 94% 02/03/2024 1:50 PM CDT Inhaled Oxygen Concentration - - Weight 79.4 kg (175 lb 1.6 oz) 02/03/2024 1:50 P M CDT Height 167.6 cm (5' 6 ) 02/03/2024 1:50 PM CDT Body Mass Index 28.26 02/03/2024 1:50 PM CDT Plan of Treatment Health Maintenance Due Date Last Done Comments Mammogram 1962 Cologuard 2012 Immunochemical Fecal Occult Blood 2012 Pneumococcal Immunization (50+ years) (2 of 2 - PCV) 2012 06/29/2003 Zoster Immunization (1 of 2) 2012 Respiratory Syncytial Virus (RSV) Immunization (Adult) (1 - Risk 60-74 years 1-dose series) 2022 SARS-COV-2 Immunization ( - season) 2024 Influenza Immunization (Season Ended) 2025 06/18/2022, 07/10/2019, 09/14/2017, Additional history exists Colonoscopy 08/01/2025 08/01/2015 Colorectal Cancer Screening 08/01/2025 08/01/2015 Pneumococcal Immunization Combined Discontinued 06/29/2003 Cervical Cancer Screening (CCS) Discontinued Pap Smear Discontinued 09/21/2008 DTaP/Tdap/Td Immunization Discontinued 2023, 06/21/2016, 06/29/2003 TdaP Immunization Completed 09/19/2023, 06/21/2016 Hepatitis C Virus (HCV) Screening Completed 10/19/2023 HPV/Cotest Discontinued Hepatitis B Immunization Aged Out No longer eligible based on patient's age to complete this topic Meningococcal Immunization (ACWY) Aged Out No longer eligible based on patient's age to complete this topic Rotavirus Immunization Aged Out No lo nger eligible based on patient's age to complete this topic Insurance [facility] Care Teams Bar Attendant Relationship Specialty Start Date End Date Constantino Babb MD [address] [place] [address] [phone] PCP - General Family Medicine 02/09/23
--- OUTSIDE RECORDS SUMMARY | 2025-01-01 09:12 | XMS_ITS | Patient Health Record ---
Author Organization [employer] Address [address] [facility] [place] [address] [id number] Care Team Providers Care Wire Stretcher Name Role Phone GEORGETTE TRIPLETT MD Primary Care Provider Unavail able Aarti Benítez Unavailable [phone] ALLERGIES Allergen (clinical drug ingredient) Drug/Non Drug Allergy documented on EMR Reaction Allergy Type Onset Date Status niacin niacin rash, muscle aches Drug Allergy Active tetracycline tetracycline rash Drug Allergy A ctive codeine codeine itching Drug Allergy Active Wellbutrin itching, airway Drug Allergy Active steriods (uncoded) itching, airway Allergy Active simvastatin rash Drug Allergy Activ e prednisone prednisone vomiting,itchin g,airway Drug Allergy Active REASON FOR REFERRAL No Information MEDICATIONS Medication SIG (Take, Route, Frequency, Duration) Notes Start Date End Date Status ergocalciferol 50,000 intl units 1 cap(s) orally once a week for 30 day(s) 08/10/2019 Active Cyclobenzaprine Hydrochlorid e 5 mg 1-2 tab(s) orally HS for 30 Active Jardiance 10 mg 1 tab(s) orally once a day (in the morning) Active Lantus 60u at night Active Bydureon Pen 2 mg subcutaneously once a week Active Zorvolex 18 mg 1 cap(s) orally 2 ti mes a day for 30 days 08/22/2019 Active montelukast 10 mg 1 tab(s) orally once a day Active Lyrica 75 mg 1 cap(s) orally 1 ti mes a day Active Vitamin D W/K2 5000 iu 1 tab(s) once a day Active Zorvolex 18 mg 1 cap(s) orally 2 ti mes a day Active DULoxetine 30 mg 1 cap(s) orally 2 ti mes a day Active hydroCHLOROthiazide 25 mg 1 tab(s) orall y once a day Active Trulicity Pen once a week Acti ve atorvastatin 20 mg 1 tab(s) orally once a day Active gabapentin Active omeprazole 40 mg 1 cap(s) orally once a day Active metFORMIN 1000 mg 1 tab(s) orally 2 ti mes a day Active Fluticasone 50mcg 1spray nostril twice a day Active losartan 50 mg 1 tab(s) orally once a day Active Breo Ellipta 200 mcg-25 mcg/inh 1 puff(s) inhaled once a day Active SOCIAL HISTORY Tobacco Use: Social History Observation Description Date Details (start date - stop date) Former Smoker NA - NA Sex Assigned At : Social History Observation Description Sex Assigned At Unknown Tobacco Use: Question Answer Notes Smoking Status former smoker PROBLEMS Problem Type ICD Code Onset Dates Problem Status W/U Status Risk SNOMED Code Notes Problem Polyarthralgia (M25.50) Active confirmed 96801166 Problem Myalgia (M79.1) Active confirmed 558806 01 Problem Fibromyalgia (M79.7) Active confirmed 247791536 Problem Low back pain, unspecified back pain laterality, unspecified chronicity, with sciatica presence unspecified (M54.5) Active confirmed 955377088 PLAN OF TREATMENT Future Test Test Name Order Date AST (SGOT) 10/24/2019 Creatinine, Serum 10/24/2019 ALT (SGPT) 10/24/2019 CBC With Differential/Platelet 0 Insurance Providers Payer Name Payer Address Payer Phone Subscriber Number Group Number Insured Name Patient Relationship to Insured Coverage Start Date Coverage End Date [facility] [address] [place] [address] [id number] BIJAN RUSH Spouse - patient is the spouse of the insured 8 [facility] [address] [place] [address] [id number] BIJAN RUSH Spouse - patient is the spouse of the insured MEDICAL (GENERAL) HISTORY Medical History History ICD Code blurred vision hayfever diabetes neuropathy tension headaches Ringing in ears sinus problems anxiety difficulty breathing asthma heart attack gas indigestion Kidney stones Hot Flashes Surgical History Surgery Date(Month/Year) hysterectomy w/ bladder repair 1992 cholecystectomy 1992 colonoscopy 1993 removal of multiple ovarian cyst, adhesions resulting of removal of part omentum 1993 Heart Catheterization spigelian hernia repair 2000 appendectomy 2001 gastric bypass 2009 colonoscopy removed 7 precanerous polyps 2011 Back surgery 2015 bronchoscopy 2017
--- OUTSIDE RECORDS SUMMARY | 2025-01-01 09:12 | XMS_ITS | Encounter Summary ---
Author Organization [facility] Address [address] [place] [address] Phone Care Team Providers Care Front End Specialist Name Role Phone Constantino Babb MD Primary Care Provider [phone] Encounter Details Date Type Department Care Team (Late st Contact Info) Description 07/27/2024 Tele[address] [facility] [address] [place] [phone] Melvin Stevens MD [address] [place] [address] Social History Tobacco Use Types Packs/Day Years Used Date Smoking Tobacco: Former Cigarettes Q uit: 2006 Smokeless Tobacco: Former Alcohol Use Standard Drinks/Week Comments Never 0 (1 standard drink = 0.6 oz pur e alcohol) Comments Unknown Sex and Gender Information Value Date Recorded Sex Assigned at Not on file Legal Sex Female 10:53 AM CDT Gender Identity Not on file Sexual Orientation Not on file documented as of this encounter Miscellaneous Notes * Telephone Encounter - Peggy Pollock - 07/27/2024 3:42 PM CST I called the PT about missed appt but the patient VM isn't set up. POO TECHNICIAN documented in this encounter Plan of Treatment Not on file documented as of this encounter Visit Diagnoses Not on filedocumented in this encounter Care Teams Front End Specialist Relationship Specialty Start Date End Date Constantino Babb MD [address] [place] [id number] PCP - General Family Medicine 02/09/23 documented as of this encounter
[2025-01-01 09:34] LABS: Basophils Percent Auto 0.4 % (0.2-1.2); Eosinophils Absolute Auto 0.1 K/mm3 (0-0.3); Eosinophils Percent Auto 0.7 % (0-4.4); Hematocrit 43.4 % (37.0-47.0); Hemoglobin 13.7 g/dL (12.0-15.0); Immature Granulocyte Absolute 0.05 K/mm3 (0.00-0.031); Immature Granulocyte Percent A 0.5 % (0-0.5); Lymphocytes Absolute Auto 1.78 K/mm3 (0.9-3.2); Lymphocytes Percent Auto 16.6 % (18.3-44.2); Mean Corpuscular HGB Conc 31.6 g/dl (32-36); Mean Corpuscular Hemoglobin 31.1 pg (26-34); Mean Corpuscular Volume 98.4 fl (80-100); Mean Platelet Volume 9.7 fl (7.4-10.4); Monocytes Absolute Auto 0.4 K/mm3 (0.1-0.6); Monocytes Percent Auto 3.5 % (2.6-8.5); Neutrophils Absolute Auto 8.4 K/mm3 (1.3-6.7); Neutrophils Percent Auto 78.3 % (45.5-73.1); Platelet Count Result 256 k/mm3 (150-375); Red Blood Count 4.41 M/mm3 (4.2-5.4); Red Cell Distribution Width 13.4 % (11.5-14.5); White Blood Count 10.8 K/mm3 (4.5-10.0)
[2025-01-01 09:41] LABS: Add Urine Microscopic? YES; Appearance Urine Clear (Clear); Bacteria Urine None Seen /hpf; Bilirubin Urine Negative (Negative); Blood Urine Negative (Negative); Color Urine Yellow (Yellow); Glucose Urine UA Negative (Negative); Ketones Urine Trace mg/dL (Negative); Leukocyte Esterase Ur Trace LEU/UL (Negative); Need Manual Microscopic Reviewed; Nitrate Urine Negative (Negative); Non Pathogenic Casts 0-2; Protein Urine Negative (Negative); RBC Urine 0-2 /hpf (0-2); Specific Grav Ur 1.016 (1.001-1.035); Squamous Epithelial Cell Urine None Seen /hpf (Few); WBC Urine 0-5 /hpf (0-3)
[2025-01-01 09:43] LABS: Alanine Aminotransferase 26 U/L (6-35); Albumin Level 4.4 g/dL (3.5-5.1); Alkaline Phosphatase 93 U/L (38-126); Anion Gap 8 mmol/L (4-12); Aspartate Amino Transferase 43 U/L (14-36); Bilirubin,Total 0.5 mg/dL (0.2-1.3); Blood Urea Nitrogen 21 mg/dL (7-17); Calcium 9.5 mg/dL (8.4-10.2); Carbon Dioxide 33 mmol/L (22-30); Chloride 99 mmol/L (98-107); Estimated CRCL calculation 75 ml/min; Estimated Glomerular Filt Rate > 60; Glucose 114 mg/dL (65-110); Lipase 166 U/L (23-300); Potassium 3.6 mmol/L (3.4-5.0); Sodium 140 mmol/L (137-145)
[2025-01-01 10:01] VITALS: BP 120/60; PULSE 76; RESP 16; TEMP 36.6; O2SAT 98
--- OUTSIDE RECORDS SUMMARY | 2025-01-01 10:12 | XMS_ITS | Encounter Summary ---
Author Organization [facility] Address [facility] [place] [address] Care Team Providers Care Mannequin Wig Maker Name Role Phone Constantino Babb MD Primary Care Provider [phone] Odell Munoz MD Unavailable Wero Blake MD Unavailable [phone] Richard Corea MD Unavailable [phone] Encounter Details Date Type Department Care Team (Late st Contact Info) Description 05/20/2022 MyChart Message Enc [facility] Multispecialty Care - [facility] 3 [facility], [address] [place] [address] Brynn Spencer APRN 3 [facility] [address] [place], [place] [phone] SI injections Social History Tobacco Use Types Packs/Day Years Used Date Smoking Tobacco: Former Cigarettes 1.5 35 1 - 05/16/2006 Smokeless Tobacco: Never Alcohol Use Standard Drinks/Week Comments No 0 (1 standard drink = 0.6 oz pur e alcohol) AUDIT-C Answer Date Recorded Frequency of Alcohol Consumption Never 05/16/2018 Average Number of Drinks Not on file 018 Frequency of Binge Drinking Not on file 08/2017 PHQ-2 Answer Date Recorded PHQ-2 Score - If the patient scores above 3, please move on to questions 3-9 0 02/17/2022 Education Answer Date Recorded What is the highest level of school you have completed or the highest degree you have received? Master's degree (e.g., MA, MS, Fortino, MEd, PAINT TECHNICIAN, MEGAN) 06/19/2021 Comments No Sex and Gender Information Value Date Recorded Sex Assigned at Female 10/02/2024 1:30 PM RISK CONTROL DIRECTOR Legal Sex Female 6:48 PM CDT Gender Identity Not on file Sexual Orientation Not on file COVID-19 Exposure Response Date Recorded In the last 10 days, have yo u been in contact with someone who was confirmed or suspected to have Coronavirus/COVID-19? No / Unsure 05/21/2022 7:44 AM CDT documented as of this encounter Functional Status * RETIRED Are you deaf or do you have serious difficulty hearing Answer Date of Assessment Author Status No 10/13/2021 9:25 PM RISK CONTROL DIRECTOR Activ e * RETIRED Are you blind or do you have serious difficulty seeing, even when wearing glasses? Answer Date of Assessment Author Status No 10/13/2021 9:25 PM RISK CONTROL DIRECTOR Activ e * Do you have serious difficulty walking or climbing stairs? Answer Date of Assessment Author Status No 10/13/2021 9:25 PM RISK CONTROL DIRECTOR Echo Mast RN Active * Do you have difficulty dressing or bathing? Answer Date of Assessment Author Status No 10/13/2021 9:25 PM Echo Lynch RN Active * Because of a physical, mental, or emotional condition, do you have difficulty doing errands alone such as visiting a doctor's office or shopping? Answer Date of Assessment Author Status No 10/13/2021 9:25 PM Echo Lynch RN Active documented as of this encounter Mental Status * Because of a physical, mental, or emotional condition, do you have serious difficulty concentrating, remembering, or making decisions? Answer Entry Date Author Status No 10/13/2021 9:25 PM Echo Lynch RN Active documented in this encounter Plan of Treatment Upcoming Encounters Date Type Department Care Team (Late st Contact Info) Description 04/02/2025 10:00 AM CDT Laboratory Only [facility] Family & Internal Medicine - [place] [address] [place] [address] Constantino Babb MD [address] [place] [address] 04/09/2025 1:20 PM CDT Office Visit [facility] Internal Medicine - [address] [address] [place] [address] [place] [address] 09/27/2025 1:40 PM RISK CONTROL DIRECTOR Office Visit [facility] Multispecialty [facility] 3 [facility], [address] [place] [address] Araceli Grullon MD 3 [place], [place] [id number] documented as of this encounter Goals Goal Patient Goal Type Associated Problems Recent Progress Patient-Stated? Author Safety - demonstrates understanding of home safety measures General No Iwona Romero RN Health - patient able to perform ADLs independently General No Bryan Zhong, SEAMUS documented as of this encounter Visit Diagnoses Not on filedocumented in this encounter Additional Health Concerns Assessment Noted Time PHQ-9 Depression Total Score: 1 03/17/20 21 7:48 AM CDT documented as of this encounter Care Teams Mannequin Wig Maker Relationship Specialty Start Date End Date Constantino Babb MD [address] [place] [address] PCP - General 09/01/16 Odell Munoz MD Three [facility]. [address] [place], [place] [phone] Referring Physician VASCULAR SURGERY 03/31/21 Wero Blake MD [address] [place] [address] Consulting Physician PULMONARY DISEASE 03/31/21 Richard Corea MD [address] [address] CARDIOVASCULAR DISEASE 08/03/22 documented as of this encounter
--- OUTSIDE RECORDS SUMMARY | 2025-01-01 10:12 | XMS_ITS | Encounter Summary ---
Author Organization [facility] Address [address] [place] [address] Care Team Providers Care Tire Cord Weaver Name Role Phone Constantino Babb MD Primary Care Provider [phone] Odell Munoz MD Unavailable Wero Blake MD Unavailable [phone] Richard Corea MD Unavailable [phone] Encounter Details Date Type Department Care Team (Late st Contact Info) Description 08/15/2022 MyChart Message Enc [facility] Medical Group Multispecialty Care - [facility] [address] [facility], [address] [place] [address] Brynn Spencer APRN 3 [facility] [address] [place], [place] [phone] Pain Medicine Social History Tobacco Use Types Packs/Day Years Used Date Smoking Tobacco: Former Cigarettes 1.5 35 1 - 05/16/2006 Smokeless Tobacco: Never Alcohol Use Standard Drinks/Week Comments Not Currently 0 (1 standard drink = 0.6 oz pur e alcohol) I never drink AUDIT-C Answer Date Recorded Frequency of Alcohol Consumption Never 05/16/2018 Average Number of Drinks Not on file 018 Frequency of Binge Drinking Not on file 08/2017 PHQ-2 Answer Date Recorded Patient Health Questionnaire-2 Score 0 08/19/2022 Education Answer Date Recorded What is the highest level of school you have completed or the highest degree you have received? Master's degree (e.g., MA, MS, Fortino, MEd, SPEECH LANGUAGE PATHOLOGIST, MEGAN) 06/19/2021 Comments No Sex and Gender Information Value Date Recorded Sex Assigned at Female 10/02/2024 1:30 PM SILVER CLEANER Legal Sex Female 6:48 PM CDT Gender Identity Not on file Sexual Orientation Not on file COVID-19 Exposure Response Date Recorded In the last 10 days, have yo u been in contact with someone who was confirmed or suspected to have Coronavirus/COVID-19? No / Unsure 08/11/2022 8:58 AM SILVER CLEANER documented as of this encounter Functional Status * RETIRED Are you deaf or do you have serious difficulty hearing Answer Date of Assessment Author Status No 08/11/2022 5:00 PM SILVER CLEANER Activ e * RETIRED Are you blind or do you have serious difficulty seeing, even when wearing glasses? Answer Date of Assessment Author Status No 08/11/2022 5:00 PM SILVER CLEANER Activ e * Do you have serious difficulty walking or climbing stairs? Answer Date of Assessment Author Status Yes 08/11/2022 5:00 PM SILVER CLEANER Ángela Soler RN Active * Do you have difficulty dressing or bathing? Answer Date of Assessment Author Status No 08/11/2022 5:00 PM Ángela Goins RN Active * Because of a physical, mental, or emotional condition, do you have difficulty doing errands alone such as visiting a doctor's office or shopping? Answer Date of Assessment Author Status No 08/11/2022 5:00 PM Ángela Goins RN Active documented as of this encounter Mental Status * Because of a physical, mental, or emotional condition, do you have serious difficulty concentrating, remembering, or making decisions? Answer Entry Date Author Status No 08/11/2022 5:00 PM Ángela Goins RN Active documented in this encounter Progress Notes * Bettina Tanner MA - 08/18/2022 8:05 AM CST Patient states Hydrocodone is making her itchy and requests different pain medication. Please advise. Thank you. ER CLEANER documented in this encounter Plan of Treatment Upcoming Encounters Date Type Department Care Team (Late st Contact Info) Description 04/02/2025 10:00 AM CDT Laboratory Only [facility] Internal [facility] - [address] [address] Constantino Babb MD [address] [place] [address] 04/09/2025 1:20 PM CDT Office Visit [facility] Internal [facility] - [address] [address] Constantino Babb MD [address] [place] [address] 09/27/2025 1:40 PM SILVER CLEANER Office Visit [facility] Multispecialty Care - [facility] 3 [facility], [address] [place] [address] Araceli Grullon MD [address] [place] [address] documented as of this encounter Goals Goal [...] documented as of this encounter Care Teams Tire Cord Weaver Relationship Specialty Start Date End Date Constantino Babb MD [address] [place] [address] PCP - General 09/01/16 Odell Munoz MD Three [facility]. [facility] [address] [place] [address] Referring Physician VASCULAR SURGERY 03/31/21 Wero Blake MD [address] [place] [address] [address] [place] [address] Consulting Physician PULMONARY DISEASE 03/31/21 Richard Corea MD [address] [facility] [address], [place] [address] CARDIOVASCULAR DISEASE 08/03/22 documented as of this encounter
--- OUTSIDE RECORDS SUMMARY | 2025-01-01 10:12 | XMS_ITS | Encounter Summary ---
Author Organization [facility] Address [address] [place] [address] Phone Care Team Providers Care Waste Reduction Coordinator Name Role Phone Constantino Babb MD Primary Care Provider [phone] Encounter Details Date Type Department Care Team (Late st Contact Info) Description 07/27/2024 Telephone [facility] [address] [place] [phone] Melvin Stevens MD [address] [place] [address] Social History Tobacco Use Types [...] but the patient VM isn't set up. OMER ENGINEER documented in this encounter Plan of Treatment Not on file documented as of this encounter Visit Diagnoses Not on filedocumented in this encounter Care Teams Waste Reduction Coordinator Relationship Specialty Start Date End Date Constantino Babb MD [address] [place] [address] PCP - General Family Medicine 02/09/23 documented as of this encounter
--- OUTSIDE RECORDS SUMMARY | 2025-01-01 10:12 | XMS_ITS | Encounter Summary ---
Author Organization [facility] Address [address] [place] [address] Care Team Providers Care Drive Away Driver Name Role Phone Constantino Babb MD Primary Care Provider Odell Munoz MD Unavailable Wero Blake MD Unavailable [phone] Richard Corea MD Unavailable [phone] Encounter Details Date Type Department Care Team (Late st Contact Info) Description 07/27/2022 MyChart Message Enc [facility] Medical [facility] Family & Internal Medicine - [place] [address] [place] [address] Constantino Babb MD [address] [place] [address] Hardware Removal surgery Social History Tobacco Use Types Packs/Day Years [...] please move on to questions 3-9 0 06/03/2022 Education Answer Date Recorded What is the highest level of school you have completed or the highest degree you have received? Master's degree (e.g., MA, MS, Fortino, MEd, HAT MENDER, MEGAN) 06/19/2021 Comments No Sex and Gender Information Value Date Recorded Sex Assigned at Female 10/02/2024 1:30 PM TRANSMISSION AND COORDINATION ENGINEER Legal Sex Female 6:48 PM CDT Gender Identity Not on file Sexual Orientation Not on file COVID-19 Exposure Response Date Recorded In the last 10 days, have yo u been in contact with someone who was confirmed or suspected to have Coronavirus/COVID-19? No / Unsure 07/16/2022 3:31 PM TRANSMISSION AND COORDINATION ENGINEER documented as of this encounter Functional Status * RETIRED Are you deaf or do you have serious difficulty hearing Answer Date of Assessment Author Status No 10/13/2021 9:25 PM TRANSMISSION AND COORDINATION ENGINEER Activ e * RETIRED Are you blind or do you have serious difficulty seeing, even when wearing glasses? Answer Date of Assessment Author Status No 10/13/2021 9:25 PM TRANSMISSION AND COORDINATION ENGINEER Activ e * Do you have serious difficulty walking or climbing stairs? Answer Date of Assessment Author Status No 10/13/2021 9:25 PM TRANSMISSION AND COORDINATION ENGINEER Echo Mast RN Active * Do you have difficulty dressing or bathing? Answer Date of Assessment Author Status No 10/13/2021 9:25 PM TRANSMISSION AND COORDINATION ENGINEER Echo Mast RN Active * Because of a physical, mental, or emotional condition, do you have difficulty doing errands alone such as visiting a doctor's office or shopping? Answer Date of Assessment Author Status No 10/13/2021 9:25 PM TRANSMISSION AND COORDINATION ENGINEER Echo Mast RN Active documented as of this encounter Mental Status * Because of a physical, mental, or emotional condition, do you have serious difficulty concentrating, remembering, or making decisions? Answer Entry Date Author Status No 10/13/2021 9:25 PM TRANSMISSION AND COORDINATION ENGINEER Echo Mast RN Active documented in this encounter Progress Notes * Bettina Tanner MA - 07/28/2022 3:18 PM CST We just advise to hold Blood thinners and Nsaids 5 days prior to surgery we had not advised to stopDuloxetine and per Dr. Grijalva he thought this was something PCP had advised to stop prior to surgery. We are ok with her continuing if ok with PCP. Thank you SMISSION AND COORDINATION ENGINEER * Joselin Lang MA - 07/28/2022 3:03 PM CST Good afternoon, Patient has c/o withdrawal symptoms in the past when stopping Duloxetine in preparation for surgery. Dr. Babb wanted me to check with Dr. Grijalva if there was any way patient could remain of this medication? Thanks, NIDHI Solares SMISSION AND COORDINATION ENGINEER * Constantino Babb MD - 07/27/2022 3:42 PM CST Not sure why she has to stop duloxetine prior to surgery? Can we please check with his office if this is necessary SMISSION AND COORDINATION ENGINEER documented in this encounter Plan of Treatment Upcoming Encounters Date Type Department Care Team (Late st Contact Info) Description 04/02/2025 10:00 AM CDT Laboratory Only [facility] Family & Internal Medicine - [address] [address] [place] [address] [place] [address] 04/09/2025 1:20 PM CDT Office Visit [facility] Family & Internal Medicine - [place] [address] [place] [address] [place] [address] [place] [address] 09/27/2025 1:40 PM TRANSMISSION AND COORDINATION ENGINEER Office Visit [facility] Multispecialty Care - [address], Suite [facility] [place] [address] Araceli Grullon MD 3 [facility] [place] [address] documented as of this encounter Goals Goal Patient Goal Type Associated Problems Recent Progress Patient-Stated? Author Safety - demonstrates understanding of home safety measures General No Iwona Romero RN Health - patient able to perform ADLs independently General No Bryan Zhong RN documented as of this encounter Visit Diagnoses Not on filedocumented in this encounter Additional Health Concerns Assessment Noted Time PHQ-9 Depression Total Score: 1 03/17/20 21 7:48 AM CDT documented as of this encounter Care Teams Drive Away Driver Relationship Specialty Start Date End Date Constantino Babb MD [address] [place] [address] PCP - General 09/01/16 Odell Munoz MD Three [facility]. [address] [place] [address] Referring Physician VASCULAR SURGERY 03/31/21 Wero Blake MD 3rd [facility] [address] [place] [address] Consulting Physician PULMONARY DISEASE 03/31/21 Richard Corea MD [address] [facility] [address] [place] [address] CARDIOVASCULAR DISEASE 08/03/22 documented as of this encounter
--- OUTSIDE RECORDS SUMMARY | 2025-01-01 10:12 | XMS_ITS | Clinical Summary ---
Author Organization [facility] Address [address] [place] [address] Phone Care Team Providers Care Patient Sitter Name Role Phone Constantino Babb MD Primary Care Provider [phone] Allergies Active Allergy Reactions Criticality Noted Date [...] - 1-dose 75+ series) 2037 [address] rosalinda [address] 8Trip/Tour Raiser PPO Care Teams Patient Sitter Relationship Specialty Start Date End Date Constantino Babb MD [address] [place] [phone] PCP - General Internal Medicine 12/31/15
--- OUTSIDE RECORDS SUMMARY | 2025-01-01 10:12 | XMS_ITS | Encounter Summary ---
Author Organization [facility] Address [address] [place] [address] Care Team Providers Care Sport Internship Name Role Phone Constantino Babb MD Primary Care Provider [phone] Odell Munoz MD Unavailable Wero Blake MD Unavailable [phone] Richard Corea MD Unavailable [phone] Encounter Details Date Type Department Care Team (Late st Contact Info) Description 11/17/2022 MyChart Message Enc [facility] Multispecialty Care - [facility] 3 [facility], [address] [place] [address] Brynn Spencer APRN 3 [facility] [address] [place], [place] [phone] MRI denial Social History Tobacco Use Types Packs/Day Years [...] Master's degree (e.g., MA, MS, Fortino, MEd, SCIENTIFIC PUBLICATIONS EDITOR, MEGAN) 06/19/2021 Comments No Sex and Gender Information Value Date Recorded Sex Assigned at Female 10/02/2024 1:30 PM SITE MANAGER Legal Sex Female 6:48 PM CDT Gender Identity Not on file Sexual Orientation Not on file COVID-19 Exposure Response Date Recorded In the last 10 days, have yo u been in contact with someone who was confirmed or suspected to have Coronavirus/COVID-19? No / Unsure 11/20/2022 9:54 AM CDT documented as of this encounter Functional Status * RETIRED Are you deaf or do you have serious difficulty hearing Answer Date of Assessment Author Status No 08/11/2022 5:00 PM SITE MANAGER Activ e * RETIRED Are you blind or do you have serious difficulty seeing, even when wearing glasses? Answer Date of Assessment Author Status No 08/11/2022 5:00 PM SITE MANAGER Activ e * Do you have serious difficulty walking or climbing stairs? Answer Date of Assessment Author Status Yes 08/11/2022 5:00 PM Ángela Goins RN Active * Do you have difficulty [...] Progress Notes * Bettina Tanner MA - 11/18/2022 1:43 PM CDT Created appeal letter and printed supporting documents and provided to neelam as no fax number is provided in denial letter scanned in media to fax appeal letter and supporting documents to. * Neelam Castillo MA - 11/17/2022 3:37 PM CDT I put it on your desk. * Neelam Castillo MA - 11/17/2022 2:42 PM CDT Forwarding to Brynn documented in this encounter Plan of Treatment Upcoming Encounters Date Type Department Care Team (Late st Contact Info) Description 04/02/2025 10:00 AM CDT Laboratory Only [facility] Family & Internal Medicine - [address] [address] Constantino Babb MD [address] [place] [address] 04/09/2025 1:20 PM CDT Office Visit [facility] Family & Internal [facility] - [address] [address] Constantino Babb MD [address] [place] [address] 09/27/2025 1:40 PM SITE MANAGER Office Visit [facility] Multispecialty Care - [facility] 3 [facility], [address] [place] [address] Araceli Grullon MD [address] [place] [address] documented as of this encounter Goals Goal Patient Goal Type Associated Problems Recent Progress Patient-Stated? Author Safety - demonstrates understanding of home safety measures General Iwona Bright, SEAMUS Health - patient able to perform ADLs independently General Bryan Bravo RN documented as of this encounter Visit Diagnoses Not on filedocumented in this encounter Additional Health Concerns Assessment Noted Time PHQ-9 Depression Total Score: 1 03/17/20 21 7:48 AM CDT documented as of this encounter Care Teams Sport Internship Relationship Specialty Start Date End Date Constantino Babb MD [address] [place] [address] PCP - General 09/01/16 Odell Munoz MD Three [facility]. [address] [place], [place] [address] Referring Physician VASCULAR SURGERY 03/31/21 Wero Blake MD 3rd [facility] [address] [place], [place] [address] Consulting Physician PULMONARY DISEASE 03/31/21 Richard Corea MD [address]25 [facility] [address] [place] [address] CARDIOVASCULAR DISEASE 08/03/22 documented as of this encounter
--- OUTSIDE RECORDS SUMMARY | 2025-01-01 10:12 | XMS_ITS | Encounter Summary ---
Author Organization [facility] Address [address] [place] [address] Care Team Providers Care Signs Sales Representative Name Role Phone Constantino Babb MD Primary Care Provider [phone] Odell Munoz MD Unavailable Wero Blake MD Unavailable [phone] Richard Corea MD Unavailable [phone] Encounter Details Date Type Department Care Team (Late st Contact Info) Description 07/17/2022 MyChart Message Enc [facility] Multispecialty Care - [address] [place] [address] Wero Blake MD [address] [place] [address] [address] [place], [place] [phone] CT scan results Social History Tobacco Use Types Packs/Day Years [...] Master's degree (e.g., MA, MS, Fortino, MEd, RUBBER SPLICER, MEGAN) 06/19/2021 Comments No Sex and Gender Information Value Date Recorded Sex Assigned at Female 10/02/2024 1:30 PM BUYERS' AGENT Legal Sex Female 6:48 PM CDT Gender Identity Not on file Sexual Orientation Not on file COVID-19 Exposure Response Date Recorded In the last 10 days, have yo u been in contact with someone who was confirmed or suspected to have Coronavirus/COVID-19? No / Unsure 07/16/2022 3:31 PM BUYERS' AGENT documented as of this encounter Functional Status * RETIRED Are you deaf or do you have serious difficulty hearing Answer Date of Assessment Author Status No 10/13/2021 9:25 PM BUYERS' AGENT Activ e * RETIRED Are you blind or do you have serious difficulty seeing, even when wearing glasses? Answer Date of Assessment Author Status No 10/13/2021 9:25 PM BUYERS' AGENT Activ e * Do you have serious difficulty walking or climbing stairs? Answer Date of Assessment Author Status No 10/13/2021 9:25 PM BUYERS' AGENT Echo Mast RN Active * Do you [...] Description 04/02/2025 10:00 AM CDT Laboratory Only [facility] Family & Internal Medicine - [address] [address] Constantino Babb MD [address] [place] [address] 04/09/2025 1:20 PM CDT Office Visit [facility] Family & Internal Medicine - [address] [address] [place] [address] [place] [address] 09/27/2025 1:40 PM BUYERS' AGENT [facility] [address] [facility], [address] [place] [address] Araceli Grullon MD [address] [place] [address] documented as of this encounter Goals Goal Patient Goal Type Associated Problems Recent Progress Patient-Stated? Author Safety - demonstrates understanding of home safety measures General No Iwona Romero RN Health - patient able to perform ADLs independently General No Bryan Zhong, RN documented as of this encounter Visit Diagnoses Not on filedocumented in this encounter Additional Health Concerns Assessment Noted Time PHQ-9 Depression Total Score: 1 03/17/20 21 7:48 AM CDT documented as of this encounter Care Teams Signs Sales Representative Relationship Specialty Start Date End Date Constantino Babb MD [address] [place] [address] PCP - General 09/01/16 Odell Munoz MD Three [facility]. [address] [place], [place] [phone] Referring Physician VASCULAR SURGERY 03/31/21 Wero Blake MD [address] [place] [address] Consulting Physician PULMONARY DISEASE 03/31/21 Richard Corea MD [facility] [address] CARDIOVASCULAR DISEASE 08/03/22 documented as of this encounter
--- OUTSIDE RECORDS SUMMARY | 2025-01-01 10:12 | XMS_ITS | Encounter Summary ---
Author Organization [facility] Address [address] [place] [address] Care Team Providers Care Flight Coordinator Name Role Phone Constantino Babb MD Primary Care Provider [phone] Odell Munoz MD Unavailable Wero Blake MD Unavailable [phone] Richard Corea MD Unavailable [phone] Encounter Details Date Type Department Care Team (Latest Contact Info) Description 05/29/2022 Thermedicalt Message Enc [facility] Medical Group Multispecialty Care - [facility] [address] [facility], [address] [place] [address] Brynn Spencer, THAD 3 [facility] [address] [place], [place] [phone] Pain Clinic hasnt called Social History Tobacco Use Types Packs/Day Years Used Date Smoking Tobacco: Former Cigarettes 1.5 35 1 - 05/16/2006 Smokeless Tobacco: Never Alcohol Use Standard Drinks/Week Comments No 0 (1 standard drink = 0.6 oz pur e alcohol) AUDIT-C Answer Date Recorded Frequency of Alcohol Consumption Never 05/16/2018 Average Number of Drinks Not on file 10/01/2 018 Frequency of Binge Drinking Not on file 08/2017 PHQ-2 Answer Date Recorded PHQ-2 Score - If the patient scores above 3, please move on to questions 3-9 0 02/17/2022 Education Answer Date Recorded What is the highest level of school you have completed or the highest degree you have received? Master's degree (e.g., MA, MS, Fortino, MEd, MARKETING PROFESSIONAL, MEGAN) 06/19/2021 Comments No Sex and Gender Information Value Date Recorded Sex Assigned at Female 10/02/2024 1:30 PM PRECISION ASSEMBLER BENCH Legal Sex Female 6:48 PM CDT Gender Identity Not on file Sexual Orientation Not on file COVID-19 Exposure Response Date Recorded In the last 10 days, have yo u been in contact with someone who was confirmed or suspected to have Coronavirus/COVID-19? No / Unsure 05/28/2022 4:07 PM CDT documented as of this encounter Functional Status * RETIRED Are you deaf or do you have serious difficulty hearing Answer Date of Assessment Author Status No 10/13/2021 9:25 PM PRECISION ASSEMBLER BENCH Activ e * RETIRED Are you blind or do you have serious difficulty seeing, even when wearing glasses? Answer Date of Assessment Author Status No 10/13/2021 9:25 PM PRECISION ASSEMBLER BENCH Activ e * Do you have serious difficulty walking or climbing stairs? Answer Date of Assessment Author Status No 10/13/2021 9:25 PM Echo Lynch RN Active * Do you have difficulty [...] Description 04/02/2025 10:00 AM CDT Laboratory Only [facility] Family & Internal Medicine - [address] [place] [address] Constantino Babb MD [address] [place] [address] 04/09/2025 1:20 PM CDT Office Visit [facility] Family & Internal Medicine - [address] [address] [place] [address] [place] [address] 09/27/2025 1:40 PM PRECISION ASSEMBLER BENCH [facility] - [facility] [address] [facility], [address] [place] [address] Araceli Grullon MD [address] [place], [place] [phone] documented as of this encounter Goals Goal [...] documented as of this encounter Care Teams Flight Coordinator Relationship Specialty Start Date End Date Constantino Babb MD [address] [place] [address] PCP - General 09/01/16 Odell Munoz MD Three [facility]. [address] [place], [place] [phone] Referring Physician VASCULAR SURGERY 03/31/21 Wero Blake MD [address] [place] [address] Consulting Physician PULMONARY DISEASE 03/31/21 Richard Corea MD [facility] [address] CARDIOVASCULAR DISEASE 08/03/22 documented as of this encounter
--- OUTSIDE RECORDS SUMMARY | 2025-01-01 10:12 | XMS_ITS | Clinical Summary ---
Author Organization [facility] Address [address], [address] [place] [address] Phone Care Team Providers Care Potato Chip Sorter Name Role Phone Constantino Babb MD Primary Care Provider [phone] Allergies Active Allergy Reactions Criticality Noted Date [...] patient's age to complete this topic Insurance [facility] Care Teams Potato Chip Sorter Relationship Specialty Start Date End Date Constantino Babb MD [address] [place] [id number] PCP - General Family Medicine 02/09/23
--- OUTSIDE RECORDS SUMMARY | 2025-01-01 10:12 | XMS_ITS | Encounter Summary ---
Author Organization [facility] Address [address] [place] [address] Care Team Providers Care Kennel Keeper Name Role Phone Constantino Babb MD Primary Care Provider Odell Munoz MD Unavailable Wero Blake MD Unavailable [phone] Richard Corea MD Unavailable [phone] Encounter Details Date Type Department Care Team (Late st Contact Info) Description 06/05/2022 MyChart Message Enc [facility] Medical Group Family & Internal Medicine - [place] [address] [place] [address] Constantino Babb MD [address] [place] [address] The name of the oxygen supplier Social History Tobacco Use Types Packs/Day Years [...] Master's degree (e.g., MA, MS, Fortino, MEd, SPRING ASSEMBLER SUPERVISOR, MEGAN) 06/19/2021 Comments No Sex and Gender Information Value Date Recorded Sex Assigned at Female 10/02/2024 1:30 PM PARTS ROOM CLERK Legal Sex Female 6:48 PM CDT Gender Identity Not on file Sexual Orientation Not on file COVID-19 Exposure Response Date Recorded In the last 10 days, have yo u been in contact with someone who was confirmed or suspected to have Coronavirus/COVID-19? No / Unsure 06/02/2022 2:28 PM CDT documented as of this encounter Functional Status * RETIRED Are you deaf or do you have serious difficulty hearing Answer Date of Assessment Author Status No 10/13/2021 9:25 PM PARTS ROOM CLERK Activ e * RETIRED Are you blind or do you have serious difficulty seeing, even when wearing glasses? Answer Date of Assessment Author Status No 10/13/2021 9:25 PM PARTS ROOM CLERK Activ e * Do you have serious difficulty walking or climbing stairs? Answer Date of Assessment Author Status No 10/13/2021 9:25 PM PARTS ROOM CLERK Echo Mast RN Active * Do you have difficulty dressing or bathing? Answer Date of Assessment Author Status No 10/13/2021 9:25 PM PARTS ROOM CLERK Echo Mast RN Active * Because of a physical, mental, or emotional condition, do you have difficulty doing errands alone such as visiting a doctor's office or shopping? Answer Date of Assessment Author Status No 10/13/2021 9:25 PM PARTS ROOM CLERK Echo Mast RN Active documented as of [...] Description 04/02/2025 10:00 AM CDT Laboratory Only [facility] Medical Group Family & Internal Medicine [address] [address] Constantino Babb MD [address] [place] [address] 04/09/2025 1:20 PM CDT Office Visit [facility] - [place] [address] [place] [address] Constantino Babb MD [address] [place] [address] 09/27/2025 1:40 PM PARTS ROOM CLERK Office Visit [facility] Multispecialty Care - [facility] [address] [facility], [address] [place] [address] Araceli Grullon MD [address] [place], [place] [phone] documented as of this encounter Goals Goal Patient Goal Type Associated Problems Recent Progress Patient-Stated? Author Safety - demonstrates understanding of home safety measures General Iwona Bright RN Health - patient able to perform ADLs independently General No Bryan Zhong, SEAMUS documented as of this encounter Visit Diagnoses Not on filedocumented in this encounter Additional Health Concerns Assessment Noted Time PHQ-9 Depression Total Score: 1 03/17/20 7:48 AM CDT documented as of this encounter Care Teams Kennel Keeper Relationship Specialty Start Date End Date Constantino Babb MD [address] [place] [address] PCP - General 09/01/16 Odell Munoz MD Three [facility]. [address] [place] [address] Referring Physician VASCULAR SURGERY 03/31/21 Wero Blake MD [address] [place] [address] Consulting Physician PULMONARY DISEASE 03/31/21 Richard Corea MD [address] [facility] [address] [address] CARDIOVASCULAR DISEASE 08/03/22 documented as of this encounter
--- OUTSIDE RECORDS SUMMARY | 2025-01-01 10:12 | XMS_ITS | Encounter Summary ---
Author Organization [facility] Address [address] [place] [address] Care Team Providers Care Pesticide Control Inspector Name Role Phone Constantino Babb MD Primary Care Provider [phone] Odell Munoz MD Unavailable Wero Blake MD Unavailable [phone] Richard Corea MD Unavailable [phone] Encounter Details Date Type Department Care Team (Late st Contact Info) Description 08/05/2022 MyChart Message Enc [facility] Medical [facility] Multispecialty Care - [facility] [address] [facility], [address] [place] [address] Brynn Spencer APRN 3 [facility] [address] [place], [place] [phone] Surgery Social History Tobacco Use Types Packs/Day Years [...] Master's degree (e.g., MA, MS, Fortino, MEd, COMPRESSOR STATION CHIEF ENGINEER, MEGAN) 06/19/2021 Comments No Sex and Gender Information Value Date Recorded Sex Assigned at Female 10/02/2024 1:30 PM CAN SOLDERER Legal Sex Female 6:48 PM CDT Gender Identity Not on file Sexual Orientation Not on file COVID-19 Exposure Response Date Recorded In the last 10 days, have yo u been in contact with someone who was confirmed or suspected to have Coronavirus/COVID-19? No / Unsure 08/03/2022 9:50 AM CAN SOLDERER documented as of this encounter Functional Status * RETIRED Are you deaf or do you have serious difficulty hearing Answer Date of Assessment Author Status No 10/13/2021 9:25 PM CAN SOLDERER Activ e * RETIRED Are you blind or do you have serious difficulty seeing, even when wearing glasses? Answer Date of Assessment Author Status No 10/13/2021 9:25 PM CAN SOLDERER Activ e * Do you have serious difficulty walking or climbing stairs? Answer Date of Assessment Author Status No 10/13/2021 9:25 PM CAN SOLDERER Echo Mast RN Active * Do you have difficulty dressing or bathing? Answer Date of Assessment Author Status No 10/13/2021 9:25 PM CAN SOLDERER Echo Mast RN Active * Because of a physical, mental, or emotional condition, do you have difficulty doing errands alone such as visiting a doctor's office or shopping? Answer Date of Assessment Author Status No 10/13/2021 9:25 PM CAN SOLDERER Echo Mast RN Active documented as of this encounter Mental Status * Because of a physical, mental, or emotional condition, do you have serious difficulty concentrating, remembering, or making decisions? Answer Entry Date Author Status No 10/13/2021 9:25 PM Echo Lynch RN Active documented in this encounter Progress Notes * Bettina Tanner MA - 08/05/2022 2:55 PM CST Good afternoon darlyn, As per when we spoke We had sent a request to your histologic aide for clearanceas soon as you were scheduled. It unfortunately has taken this long to receive a response from them. I have called down to the OR and they are reviewing your chart and will get back to me if the clearance from your PCP and Pulmonary provider will work. I'm sorry this is causing you concern but we are doing everything on our end so your surgery goes as scheduled. Thank you. Radha SOLDERER documented in this encounter Plan of Treatment Upcoming Encounters Date Type Department Care Team (Late st Contact Info) Description 04/02/2025 10:00 AM CDT Laboratory Only [facility] Family & Internal Medicine [address] [address] Constantino Babb MD [address] [place] [address] 04/09/2025 1:20 PM CDT Office Visit [facility] Family & Internal [address] [address] Constantino Babb MD [address] [place] [address] 09/27/2025 1:40 PM CAN SOLDERER Office Visit [facility] Multispecialty Care - [facility] [address] [facility], [address] [place] [address] Araceli Grullon MD [address] [place] [address] documented as of this encounter Goals Goal [...] documented as of this encounter Care Teams Pesticide Control Inspector Relationship Specialty Start Date End Date Constantino Babb MD [address] [place] [address] PCP - General 09/01/16 Odell Munoz MD Three [facility]. [address] [place], [place] [address] Referring Physician VASCULAR SURGERY 03/31/21 Wero Blake MD 3[address] [facility] [address] [place] [address] Consulting Physician PULMONARY DISEASE 03/31/21 Richard Corea MD [address] [facility] [address] [address] CARDIOVASCULAR DISEASE 08/03/22 documented as of this encounter
--- OUTSIDE RECORDS SUMMARY | 2025-01-01 10:12 | XMS_ITS | Encounter Summary ---
Author Organization [facility] Address [address] [place] [address] Care Team Providers Care Diesel Tractor Operator Name Role Phone Constantino Babb MD Primary Care Provider [phone] Odell Munoz MD Unavailable Wero Blake MD Unavailable [phone] Richard Corea MD Unavailable [phone] Encounter Details Date Type Department Care Team (Latest Contact Info) Description 11/20/2022 MyCMamaBear Appt Message Enc [facility] Medical Group Multispecialty Care - [facility] [address] [facility], [address] [place] [address] Brynn Spencer, THAD 3 [facility] [address] [place], [place] [phone] Never had Alprazolam Social History Tobacco Use Types Packs/Day Years [...] Frequency of Binge Drinking Not on file 1008/2017 PHQ-2 Answer Date Recorded Patient Health Questionnaire-2 Score 0 08/19/2022 Education Answer Date Recorded What is the highest level of school you have completed or the highest degree you have received? Master's degree (e.g., MA, MS, Fortino, MEd, AUTOMOTIVE SERVICE MANAGER, MEGAN) 06/19/2021 Comments No Sex and Gender Information Value Date Recorded Sex Assigned at Female 10/02/2024 1:30 PM AUTOMOBILE DRIVERS Legal Sex Female 6:48 PM CDT Gender [...] Assessment Author Status No 08/11/2022 5:00 PM AUTOMOBILE DRIVERS Activ e * RETIRED Are you blind or do you have serious difficulty seeing, even when wearing glasses? Answer Date of Assessment Author Status No 08/11/2022 5:00 PM AUTOMOBILE DRIVERS Activ e * Do you have serious [...] documented in this encounter Progress Notes * Neelam Castillo MA - 11/24/2022 11:49 AM CDT Forwarding to Brynn * Neelam Castillo MA - 11/20/2022 2:26 PM CDT Forwarding to Brynn documented in this encounter Plan of Treatment Upcoming Encounters Date Type Department Care Team (Late st Contact Info) Description 04/02/2025 10:00 AM CDT Laboratory Only [facility] Family & Internal Medicine [address] [address] Constantino Babb MD [address] [place] [address] 04/09/2025 1:20 PM CDT Office Visit [facility] Family & Internal [facility] - [address] [address] Constantino Babb MD [address] [place] [address] 09/27/2025 1:40 PM AUTOMOBILE DRIVERS Office Visit [facility] Multispecialty Care - [facility] 3 [facility], [address] [place] [address] Araceli Grullon MD [address] [place] [address] documented as of this encounter Goals Goal [...] documented as of this encounter Care Teams Diesel Tractor Operator Relationship Specialty Start Date End Date Constantino Babb MD [address] [place] [address] PCP - General 09/01/16 Odell Munoz MD [facility]. [facility] [address] [place] [address] Referring Physician VASCULAR SURGERY 03/31/21 Wero Blake MD [address] [place] [address] [address] [place] [address] Consulting Physician PULMONARY DISEASE 03/31/21 [address] Corea MD [address] [facility] [address], [place] [address] CARDIOVASCULAR DISEASE 08/03/22 documented as of this encounter
--- OUTSIDE RECORDS SUMMARY | 2025-01-01 10:12 | XMS_ITS | Encounter Summary ---
Author Organization [facility] Address [address] [place] [address] Care Team Providers Care Quarry Extraction Worker Name Role Phone Constantino Babb MD Primary Care Provider [phone] Odell Munoz MD Unavailable Wero Blake MD Unavailable [phone] Richard Corea MD Unavailable [phone] Encounter Details Date Type Department Care Team (Latest Contact Info) Description 01/23/2022 MyCSyntertainmentt Message Enc [facility] Medical Group Multispecialty Care - [facility] [address] [facility], [address] [place] [address] Brynn Spencer, THAD 3 [facility] [address] [place], [place] [phone] Pain has traveled up to the middle of my spine Social History Tobacco Use Types Packs/Day Years Used Date Smoking Tobacco: Former Cigarettes 1.8 35 1 971 - 2006 Smokeless Tobacco: Never Alcohol Use Standard Drinks/Week [...] 3, please move on to questions 3-9 1 03/17/2021 Education Answer Date Recorded What is the highest level of school you have completed or the highest degree you have received? Master's degree (e.g., MA, MS, Fortino, MEd, MANAGER OF LEARNING, MEGAN) 06/19/2021 Comments No Sex and Gender Information Value Date Recorded Sex Assigned at Female 10/02/2024 1:30 PM BUSINESS SERVICES ASSOCIATE Legal Sex Female 6:48 PM CDT Gender Identity Not on file Sexual Orientation Not on file documented as of this encounter Functional Status * RETIRED Are you deaf or do you have serious difficulty hearing Answer Date of Assessment Author Status No 10/13/2021 9:25 PM BUSINESS SERVICES ASSOCIATE Activ e * RETIRED Are you blind or do you have serious difficulty seeing, even when wearing glasses? Answer Date of Assessment Author Status No 10/13/2021 9:25 PM BUSINESS SERVICES ASSOCIATE Activ e * Do you have serious difficulty walking or climbing stairs? Answer Date of Assessment Author Status No 10/13/2021 9:25 PM BUSINESS SERVICES ASSOCIATE Echo Mast RN Active * Do you have difficulty dressing or bathing? Answer Date of Assessment Author Status No 10/13/2021 9:25 PM BUSINESS SERVICES ASSOCIATE Echo Mast RN Active * Because of [...] Description 04/02/2025 10:00 AM CDT Laboratory Only [facility] Medical Group Family & Internal Medicine - [address] [address] Constantino Babb MD [address] [place] [address] 04/09/2025 1:20 PM CDT Office Visit [facility] Family & Internal Medicine - [place] [address] [place] [address] Constantino Babb MD [address] [place] [address] 09/27/2025 1:40 PM BUSINESS SERVICES ASSOCIATE Office Visit [facility] Multispecialty Care - [facility] [address] [facility], [address] [place] [address] Araceli Grullon MD [address] [place], [place] [phone] documented as of this encounter Goals Goal [...] documented as of this encounter Care Teams Quarry Extraction Worker Relationship Specialty Start Date End Date Constantino Babb MD [address] [place] [address] PCP - General 09/01/16 Odell Munoz MD Three [facility]. [address] [place], [place] [phone] Referring Physician VASCULAR SURGERY 03/31/21 Wero Blake MD [address] [facility] [address] [place], [place] [phone] Consulting Physician PULMONARY DISEASE 03/31/21 Richard Corea MD [address] [facility] [address], [place] [address] CARDIOVASCULAR DISEASE 08/03/22 documented as of this encounter
--- OUTSIDE RECORDS SUMMARY | 2025-01-01 10:13 | XMS_ITS | Encounter Summary ---
Author Organization [facility] Address [facility] [place] [address] Care Team Providers Care Trauma Director Name Role Phone Constantino Babb MD Primary Care Provider [phone] Odell Munoz MD Unavailable Wero Blake MD Unavailable [phone] Richard Corea MD Unavailable [phone] Encounter Details Date Type Department Care Team (Late st Contact Info) Description 04/05/2023 Therapy Plan [facility] [address] [place] [address] Rosy Barone, PT [address] [place], [place] [id number] Social History Tobacco Use Types Packs/Day Years Used Date Smoking Tobacco: Former Cigarettes 1.5 35 1 - 05/16/2006 Passive Smoke Exposure: Never Smokeless Tobacco: Never Alcohol Use Standard Drinks/Week Comments Not Currently 0 (1 standard drink = 0.6 oz pur e alcohol) I never drink AUDIT-C Answer Date Recorded Frequency of Alcohol Consumption Never 05/16/2018 Average Number of Drinks Not on file 018 Frequency of Binge Drinking Not on file 08/2017 PHQ-2 Answer Date Recorded Patient Health Questionnaire-2 Score 0 02/01/2023 Education Answer Date Recorded What is the highest level of school you have completed or the highest degree you have received? Master's degree (e.g., MA, MS, Fort[place], MEd, GENERAL MANAGER [employer], MEGAN) 06/19/2021 Comments No Sex and Gender Information Value Date Recorded Sex Assigned at Female 10/02/2024 1:30 PM ABRASIVES SALES REPRESENTATIVE Legal Sex Female 6:48 PM CDT Gender Identity Not on file Sexual Orientation Not on file documented as of this encounter Functional Status * RETIRED Are you deaf or do you have serious difficulty hearing Answer Date of Assessment Author Status No 08/11/2022 5:00 PM ABRASIVES SALES REPRESENTATIVE Activ e * RETIRED Are you blind or do you have serious difficulty seeing, even when wearing glasses? Answer Date of Assessment Author Status No 08/11/2022 5:00 PM ABRASIVES SALES REPRESENTATIVE Activ e * Do you have serious [...] Goins RN Active documented in this encounter Plan of Treatment Upcoming Encounters Date Type Department Care Team (Late st Contact Info) Description 04/02/2025 10:00 AM CDT Laboratory Only [facility] Family & Internal Medicine [address] [address] Constantino Babb MD [address] [place] [address] 04/09/2025 1:20 PM CDT Office Visit [facility] Family & Internal Medicine - [place] [address] [place] [address] Constantino Babb MD [address] [place] [address] 09/27/2025 1:40 PM ABRASIVES SALES REPRESENTATIVE Office Visit [facility] Multispecialty Care - [facility] [address] [facility], [address] [place] [address] Araceli Grullon MD [address] [place], [place] [id number] documented as of this encounter Goals Goal [...] documented as of this encounter Care Teams Trauma Director Relationship Specialty Start Date End Date Constantino Babb MD [address] [place] [address] PCP - General 09/01/16 Odell Munoz MD Three [facility]. [address] [place], [place] [id number] Referring Physician VASCULAR SURGERY 03/31/21 Wero Blake MD [address] [facility] [address] [place], [place] [address] Consulting Physician PULMONARY DISEASE 03/31/21 Richard Corea MD [address] [facility] [address], [place] [address] CARDIOVASCULAR DISEASE 08/03/22 documented as of this encounter
--- OUTSIDE RECORDS SUMMARY | 2025-01-01 10:13 | XMS_ITS | Encounter Summary ---
Author Organization [facility] Address [address] [place] [address] Care Team Providers Care Rn Med Surg Name Role Phone Constantino Babb MD Primary Care Provider [phone] Odell Munoz MD Unavailable Wero Blake MD Unavailable [phone] Richard Corea MD Unavailable [phone] Encounter Details Date Type Department Care Team (Late st Contact Info) Description 08/24/2023 MyChart Message Enc [facility] Family & Internal Medicine - [place] [address] [place] [address] Constantino Babb MD [address] [place] [address] Meds and Meter Social History Tobacco Use Types Packs/Day Years Used Date Smoking Tobacco: Former Cigarettes 1.5 35 1 - 05/16/2006 Passive Smoke Exposure: Never Smokeless Tobacco: Never Alcohol Use Standard Drinks/Week Comments Never 0 [...] degree you have received? Master's degree (e.g., SHERON, , Fortino, [place], INK BLENDER, MEGAN) 06/19/2021 Comments No Sex and Gender Information Value Date Recorded Sex Assigned at Female 10/02/2024 1:30 PM OUTREACH COUNSELOR Legal Sex Female 6:48 PM CDT Gender Identity Not on file Sexual Orientation Not on file documented as of this encounter Functional Status * RETIRED Are you deaf or do you have serious difficulty hearing Answer Date of Assessment Author Status No 08/11/2022 5:00 PM OUTREACH COUNSELOR Activ e * RETIRED Are you blind or do you have serious difficulty seeing, even when wearing glasses? Answer Date of Assessment Author Status No 08/11/2022 5:00 PM OUTREACH COUNSELOR Activ e * Do you have serious difficulty walking or climbing stairs? Answer Date of Assessment Author Status Yes 08/11/2022 5:00 PM OUTREACH COUNSELOR Ángela Soler RN Active * Do you have difficulty dressing or bathing? Answer Date of Assessment Author Status No 08/11/2022 5:00 PM OUTREACH COUNSELOR Ángela Soler RN Active * Because of a physical, mental, or emotional condition, do you have difficulty doing errands alone such as visiting a doctor's office or shopping? Answer Date of Assessment Author Status No 08/11/2022 5:00 PM OUTREACH COUNSELOR Ángela Soler RN Active documented as of this encounter Mental Status * Because of a physical, mental, or emotional condition, do you have serious difficulty concentrating, remembering, or making decisions? Answer Entry Date Author Status No 08/11/2022 5:00 PM OUTREACH COUNSELOR Ángeal Soler RN Active documented in this encounter Progress Notes * Joselin Lang, SHERON - 08/24/2023 5:28 PM CSTFrom: Darlyn Zhu To: Dr. Constantino Babb Sent: 08/24/2023 12:11 PM OUTREACH COUNSELOR Subject: Meds and Meter Greetings to you all and a HNY as well, I tried to get a refill on Atorvastatin and said Doc deniedthat one. Also, my meter , and I got the strips but not the meter hahaha. The meter is one touch verio. Thank you for your assistance, Darlyn Zhu EACH COUNSELOR documented in this encounter Plan of Treatment Upcoming Encounters Date Type Department Care Team (Late st Contact Info) Description 04/02/2025 10:00 AM CDT Laboratory Only [facility] Family & Internal [facility] - [address] [address] Constantino Babb MD [address] [place] [address] 04/09/2025 1:20 PM CDT Office Visit [facility] Internal [address] [address] Constantino Babb MD [address] [place] [address] 09/27/2025 1:40 PM OUTREACH COUNSELOR Office Visit [facility] Multispecialty Care - [facility] [address] [facility], [address] [place] [phone] Araceli Grullon MD [address] [place] [address] documented as of this encounter Goals Goal Patient Goal Type Associated Problems Recent Progress Patient-Stated? Author Safety - demonstrates understanding of home safety measures General No Iwona Romero, RN Health - patient able to perform ADLs independently General No Bryan Zhong, RN documented as of this encounter Visit Diagnoses Diagnosis Type 2 diabetes mellitus with other circulatory complication, with long-term current use of insulin ([facility])- Primary Hyperlipidemia, unspecified hyperlipidemia type documented in this encounter Additional Health Concerns Assessment Noted Time PHQ-9 Depression Total Score: 1 03/17/20 21 7:48 AM CDT documented as of this encounter Care Teams Rn Med Surg Relationship Specialty Start Date End Date Constantino Babb MD [address] [place] [address] PCP - General 09/01/16 Odell Munoz MD Three [facility]. [address] [place] [address] Referring Physician VASCULAR SURGERY 03/31/21 eWro Blake MD 3[address] [facility] [address] [place], [place] [address] Consulting Physician PULMONARY DISEASE 03/31/21 Richard Corea MD [address] [facility] [address] [facility] [place] [address] CARDIOVASCULAR DISEASE 08/03/22 documented as of this encounter
--- OUTSIDE RECORDS SUMMARY | 2025-01-01 10:13 | XMS_ITS | Clinical Summary ---
Author Organization [facility] Address [address] [place] [address] Care Team Providers Care Crepe Sole Wire Brusher Name Role Phone Constantino Babb MD Primary Care Provider [phone] Odell Munoz MD Unavailable Wero Blake MD Unavailable [phone] Richard Corea MD Unavailable [phone] Allergies Active Allergy Reactions Criticality Noted Date Comments Bupropion Nausea and Vomiting,Shortness of Breath High 12/31/2015 Codeine Itching,GI Upset,Vomiting Vomiting and itching. Niacin Myalgias 12/31/2015 Prednisone Nausea and Vomiting,Shortness of Breath High 12/31/2015 Simvastatin Rash Low 06/09/2012 Tetracycline Rash Low 12/31/2015 Medications Blood Glucose Monitoring Suppl (GLUCOCOM MONITOR) w/Device Kit by Other route 2 (two) times daily. 018 Active CPAP MACHINEIndicatio ns:RETA on CPAP AutoCPAP [id number] For use when sleeping Lifetime use 1 Device 019 Active Lancets MiscIndications: Type 2 diabetes mellitus without complication, without long-term current use of insulin ([facility]) 1 Device by Does not apply route 2 (two) times a day. 100 each 3 021 Active vitamin D3, cholecalciferol, 5000 UNITS capsuleIndicatio ns:S/P lumbar fusion Take 1 capsule (5,000 Units total) by mouth daily. 30 capsule 4 021 Active diphenhydrAMINE HCl (BENADRYL ALLERGY OR)Indications:B urning Sensation and Itching (Inactive) Take 2 tablets by mouth nightly. Indications: Burning Feeling and Itching Active Insulin Pen Needle (PEN NEEDLES) 31G X 8 MM MiscIndications: Type 2 diabetes mellitus ([facility]) Use three times daily with device 300 each 3 022 Active B-D UF III MINI PEN NEEDLES 31G X 5 MM MiscIndications: Type 2 diabetes mellitus ([facility]) USE DAILY WITH DEVICE 300 each 3 022 Active OXYGENIndication s:Shortness of breath 2 L/min by Nasal route every evening. Indications: Shortness of breath Active vitamin E 100 UNIT capsule Take 1 capsule (100 Units total) by mouth daily. Active Casanthranol-Doc usate Sodium (DOC-Q-LAX OR) Take 1 tablet by mouth daily as needed. Active ipratropium (ATROVENT) 0.03 % nasal sprayIndications :Environmental and seasonal allergies 2 sprays by Nasal route every 12 (twelve) hours. 30 mL 6 023 Active aspirin EC (ECOTRIN) 81 MG tablet Take 1 tablet (81 mg total) by mouth daily. Active estradiol (ESTRACE) 0.1 MG/GM vaginal creamIndications :Postmenopausal atrophic vaginitis APPLY 1 GRAM INTRAVAGINALLY 3 TIMES EVERY WEEK 42.5 g 1 023 Active albuterol sulfate HFA 108 (90 Base) MCG/ACT inhalerIndicatio ns:Chronic obstructive pulmonary disease, unspecified COPD type ([facility]) INHALE 2 PUFFS EVERY 4 HOURS NEEDED 51 g 1 023 Active Continuous Blood Gluc Sensor (FREESTYLE SEBASTIEN 2 SENSOR) MiscIndications: Type 2 diabetes mellitus without complication, without long-term current use of insulin ([facility]) Apply 1 sensor unit and change every 14 days. 6 each 3 023 Active Glucose Blood (BLOOD GLUCOSE TEST STRIPS) StripIndications :Type 2 diabetes mellitus without complication, without long-term current use of insulin ([facility]) 1 strip by Does not apply route 2 (two) times a day. 200 strip 023 Active omeprazole (PRILOSEC) 20 MG capsuleIndicatio ns:Gastroesophag eal reflux disease without esophagitis TAKE 1 CAPSULE(20 MG) BY MOUTH DAILY 90 capsule 3 024 Active Zinc Sulfate 220 (50 Zn) MG Tab CR Take by mouth. quercetin Active DULoxetine (CYMBALTA) 30 MG capsuleIndicatio ns:Fibromyalgia, Anxiety TAKE 1 CAPSULE(30 MG) BY MOUTH DAILY 90 capsule 1 025 Active DULoxetine (CYMBALTA) 60 MG capsuleIndicatio ns:Fibromyalgia TAKE 1 CAPSULE(60 MG) BY MOUTH DAILY 90 capsule 1 025 Active ramelteon (ROZEREM) 8 MG tabletIndication s:Insomnia, unspecified type TAKE 1 TABLET(8 MG) BY MOUTH EVERY NIGHT AT BEDTIME 30 tablet 5 025 Active OZEMPIC 2 mg/dose injection (PEN)Indications :Type 2 diabetes mellitus with other circulatory complication, with long-term current use of insulin ([facility]) INJECT 2MG UNDER THE SKIN ONCE WEEKLY 9 mL 1 025 Active ondansetron (ZOFRAN-ODT) 4 MG disintegrating tabletIndication s:S/P lumbar fusion DISSOLVE 1 TABLET(4 MG) ON THE TONGUE EVERY 4 HOURS NEEDED FOR NAUSEA 10 tablet 1 025 Active montelukast (SINGULAIR) 10 MG tabletIndication s:Environmental and seasonal allergies TAKE 1 TABLET(10 MG) BY MOUTH DAILY 90 tablet 1 025 Active hydroCHLOROthiaz asha (HYDRODIURIL) 25 MG tabletIndication s:Essential hypertension TAKE 1 TABLET BY MOUTH EVERY DAY 90 tablet 025 Active atorvastatin (LIPITOR) 40 MG tabletIndication s:Hyperlipidemia , unspecified hyperlipidemia type TAKE 1 TABLET(40 MG) BY MOUTH DAILY 90 tablet 025 Active dilTIAZem CD (CARDIZEM CD) 180 MG 24 hr capsuleIndicatio ns:Chronic obstructive pulmonary disease, unspecified COPD type ([facility]),Primary hypertension TAKE 1 CAPSULE(180 MG) BY MOUTH DAILY 30 capsule 2 025 Active metFORMIN (GLUCOPHAGE) 1000 MG tabletIndication s:Type 2 diabetes mellitus with diabetic polyneuropathy, without long-term current use of insulin ([facility]) Take 1 tablet (1,000 mg total) by mouth daily. 90 tablet 3 025 Active olmesartan (BENICAR) 20 MG tabletIndication s:Hypertension TAKE 1 TABLET(20 MG) BY MOUTH DAILY FOR HIGH BLOOD PRESSURE 90 tablet 025 Active metFORMIN (GLUCOPHAGE) 1000 MG tabletIndication s:Type 2 diabetes mellitus ([facility]) TAKE 1 TABLET(1000 MG) BY MOUTH TWICE DAILY WITH MEALS 180 tablet 3 023 2024 Discontinued(R eorder) hydroCHLOROthiaz asha (HYDRODIURIL) 25 MG tabletIndication s:Essential hypertension TAKE 1 TABLET BY MOUTH EVERY DAY 90 tablet 025 2024 Discontinued atorvastatin (LIPITOR) 40 MG tabletIndication s:Hyperlipidemia , unspecified hyperlipidemia type TAKE 1 TABLET(40 MG) BY MOUTH DAILY 90 tablet 025 2024 Discontinued dilTIAZem CD (CARDIZEM CD) 180 MG 24 hr capsuleIndicatio ns:Chronic obstructive pulmonary disease, unspecified COPD type ([facility]),Primary hypertension TAKE 1 CAPSULE(180 MG) BY MOUTH DAILY 30 capsule 2 025 2024 Discontinued olmesartan (BENICAR) 20 MG tabletIndication s:Hypertension TAKE 1 TABLET(20 MG) BY MOUTH DAILY FOR HIGH BLOOD PRESSURE 90 tablet 025 2024 Discontinued insulin degludec (TRESIBA FLEXTOUCH) 200 UNIT/ML injection (PEN)Indications :Type 2 diabetes mellitus with other circulatory complication, with long-term current use of insulin ([facility]) Inject 6 Units into the skin nightly at bedtime. 5 Pen 5 025 2024 Discontinued(T herapy completed) JARDIANCE 10 MG tabletIndication s:Type 2 diabetes mellitus ([facility]) TAKE 1 TABLET(10 MG) BY MOUTH DAILY 90 tablet 1 025 2024 Discontinued Active Problems Problem Noted Date Diagnosed Date Class 1 obesity due to exces s calories with serious comorbidity and body mass index (BMI) of 32.0 to 32.9 in adult 12/25/2022 Gait disturbance 12/15/2022 Tremor 10/22/2022 Myelopathy ([facility]) 10/22/2022 Atherosclerosis of aorta 09/21/2022 S/P hardware removal 08/12/2022 Pain from implanted hardware 08/11/2022 Supplemental oxygen dependent 06/07/2022 COVID 05/19/2022 Paroxysmal supraventricular tachycardia ([facility] ) 05/19/2022 Raynauds disease 05/19/2022 Chest pain 10/13/2021 Lumbar radiculopathy 09/23/2021 Piriformis syndrome, unspecified laterality 03/2021 Sacroiliitis 05/05/2021 S/P lumbar fusion 04/23/2021 Lumbar spine instability 04/23/2021 DDD (degenerative disc disease), lumbar 04/23/20 Lumbar disc herniation 04/23/2021 Facet arthropathy, lumbar 04/23/2021 Hypertension-nephrosis syndr ome due to secondary diabetes ([facility]) 02/28/2021 Protrusion of lumbar intervertebral disc 021 Central stenosis of spinal canal 10/16/2020 Stenosis of lateral recess of lumbar spine 10/16 Lumbar foraminal stenosis 10/16/2020 Memory loss 04/09/2020 Small vessel arterial diseas e due to type 2 diabetes mellitus ([facility]) 12/15/2019 Abnormal findings on diagnostic imaging of lung 01/11/2019 Former tobacco use 01/11/2019 History of hemoptysis 01/11/2019 Leg numbness 06/02/2018 Vitamin D deficiency 10/18/2017 Low back pain 10/14/2017 AR (allergic rhinitis) 04/23/2017 COPD (chronic obstructive pu lmonary disease) ([facility]) 04/23/2017 Environmental and seasonal allergies 04/23/2017 Diffusion capacity of lung (dl), decreased 04/23 RETA on CPAP 04/23/2017 Knee pain 08/20/2016 Pulmonary nodule seen on imaging study 5 Eczema 04/24/2014 Fibromyalgia 04/24/2014 Anxiety 07/31/2013 Menopausal symptoms 06/15/2013 Hyperlipidemia 06/13/2012 Type 2 diabetes mellitus wit h circulatory disorder, with long-term current use of insulin ([facility]) 06/09/2012 Hypertension 06/09/2012 Arthritis 06/09/2012 Almonte's esophagus 06/09/2012 Gastroesophageal reflux disease without esophagi tis 06/09/2012 Asthma ([facility]) 06/09/2012 Resolved Problems Problem Noted Date Diagnosed Date Resolved Date Pain from implanted hardware , initial encounter 09/23/2021 01/11/2024 Spinal instabilities, lumbar region 04/22/2021 04/23/2021 Encounter for screening for lung cancer 01/27/2018 04/26/2020 Microalbuminuria 04/17/2016 01/11/2024 Hemoptysis 11/21/2014 07/10/2019 Encounter for preventive health examination 06/09/2012 04/26/2020 Encounters Date Type Department Care Team Description 12/20/2024 8:40 AM CDT Office Visit [facility] [address] [phone] Constantino Babb MD Balance Problem (Patient c/o balance issues for a few months. She fell and hit her head on the stove on Wednesday and her balance has been significantly worse since she fell. ); Weakness (Patient c/o leg weakness, patient is wondering if this is a side effect of ozempic); Urinary Incontinence (Patient c/o unable to control her bladder, patient is wondering if this is a side effect of ozempic); Fatigue; COVID-19 (Patient is wondering if people who had covid-19 infection are having spiked protein in the brain. ); Blurred Vision (Patient c/o blurred vision and light sensitivity, patient is wondering if this is a side effect of ozempic) 12/20/2024 Travel 12/06/[address] [facility] [address] [phone] Constantino Babb MD Prior Authorization (Omeprazole 20mg capsules.) from Last 3 Months Immunizations Immunization Administration Dates Next Due Fluzone 6 Months+ Quad (0.5 mL Prefilled Syringe) 06/18/2022,10/14/2021(Deferred: Patient/family declined),07/10/2019 Influenza (Generic) 05/23/2015,06/15/2013 Influenza Adult (Generic) 09/14/2017 Pneumococcal (Pneumovax 23) 06/29/2003 Tdap (Generic) 09/19/2023,06/22/2016 Family History Medical History Relation Comments Diabetes Brother 2 Asthma Daughter Depression Daughter Depression Father Early Father Heart Attack Father Heart Disease Father Hypertension Father Mental Health Father Diabetes Maternal Grandfather Hypertension Maternal Grandfather Diabetes Maternal Grandmother Stroke Maternal Grandmother Alcohol Abuse Maternal Uncle 1 Diabetes Maternal Uncle 1 Stroke Maternal Uncle 2 Diabetes Maternal Uncle 3 Stroke Maternal Uncle 4 Arthritis Mother Diabetes Mother Early Hearing Loss Mother Heart Disease Mother Hypertension Mother Thyroid Mother Hypertension Paternal Aunt Alcohol Abuse Paternal Grandfather Diabetes Paternal Grandfather Heart Disease Paternal Grandfather Stroke Paternal Grandfather Heart Attack Paternal Grandmother Heart Disease Paternal Grandmother Hypertension Paternal Grandmother Breast Cancer Sister invasive ductual carcinoma Cancer Sister Diabetes Sister Asthma Son Miscarriages / Stillbirths Neg Hx Retardation/Learning Difficulties Neg Hx Relation Status Comments Brother 1 Alive Brother 2 Daughter Alive Father (Age 50) of massiv e heart attack Maternal Grandfather Maternal Grandmother Maternal Uncle 1 Maternal Uncle 2 Maternal Uncle 3 Alive Maternal Uncle 4 Alive Mother Alive Paternal Aunt Paternal Grandfather Paternal Grandmother Sister Alive Son Alive Social History Tobacco Use Types Packs/Day Years Used Date Smoking Tobacco: Former Cigarettes 1.5 35 1 - 05/16/2006 Passive Smoke Exposure: Never Smokeless Tobacco: Never Tobacco Cessation:Counseling Given: Yes Alcohol Use Standard Drinks/Week Comments Not Currently 0 (1 standard drink = 0.6 oz pur e alcohol) I never drink AUDIT-C Answer Date Recorded Frequency of Alcohol Consumption Never 05/16/2018 Average Number of Drinks Not on file 018 Frequency of Binge Drinking Not on file 08/2017 PHQ-2 Answer Date Recorded Patient Health Questionnaire-2 Score 1 10/02/2024 Education Answer Date Recorded What is the highest level of school you have completed or the highest degree you have received? Master's degree (e.g., MA, MS, [place], MEd, TORPEDO SPECIALIST, MEGAN) 06/19/2021 Comments No Sex and Gender Information Value Date Recorded Sex Assigned at Female 10/02/2024 1:30 PM GREIGE GOODS INSPECTOR Legal Sex Female 6:48 PM CDT Gender Identity Not on file Sexual Orientation Not on file Last Filed Vital Signs Vital Sign Reading Time Taken Comments Blood Pressure 144/70 12/20/2024 8:58 AM CDT Pulse 70 12/20/2024 8:58 AM CDT Temperature 36.8 C (98.2 F) 12/20/2024 8:58 AM CDT Respiratory Rate 16 12/20/2024 8:58 AM CDT Oxygen Saturation 92% 12/20/2024 8:58 AM CDT Inhaled Oxygen Concentration - - Weight 68.4 kg (150 lb 12.8 oz) 12/20/2024 8:58 AM CDT Height 167.6 cm (5' 6 ) 12/20/2024 8:58 AM CDT Body Mass Index 24.34 12/20/2024 8:58 AM CDT Plan of Treatment Upcoming Encounters Date Type Department Care Team (Late st Contact Info) Description 04/02/2025 10:00 AM CDT Laboratory Only [facility] [address] [phone] Constantino Babb MD [address] [place] [address] 04/09/2025 1:20 PM CDT Office Visit [facility] - [address] [phone] Constantino Babb MD [address] [place] [address] 09/27/2025 1:40 PM GREIGE GOODS INSPECTOR Office Visit [facility] - [address], [address] [place] [address] Araceli Grullon MD [address] [place] [address] Health Maintenance Due Date Last Done Comments EGD-Almonte's Surveillance 1962 Diabetes: Retinopathy Eye Exam 1980 Mammogram Screening 2002 Pneumococcal Vaccine: 50+ Years (2 of 2 - PCV) 06/29/2004 06/29/2003 Zoster Vaccines (1 of 2) 2012 Annual Physical 02/05/2022 02/05/2021 RSV Immunization or 60+ Years (1 - Risk 60-74 years 1-dose series) 2022 Hemoglobin A1C 04/01/2025 10/02/2024, 10/2023, 01/11/2024, Additional history exists Kidney Health Evaluation 04/18/2025 04/18/2024 Lipid Panel 04/18/2025 04/18/2024, 12/2023, 05/05/2022, Additional history exists Colorectal Cancer Screening Colonoscopy (10 Years) 08/01/2025 08/01/2015 COVID-19 Vaccine ( - 2023- season) 2025 Postponed from 04/16/2024 (Patient Refused) DTaP, Tdap and Td Vaccines (3 - Td or Tdap) 09/19/2033 09/19/2023, 06/22/2016 Hepatitis C Completed 10/19/2023 PHQ-2 (Physician [place]) Completed 10/02/2024 Meningococcal B Vaccine Aged Out No l onger eligible based on patient's age to complete this topic Meningococcal Vaccine Aged Out No del santos eligible based on patient's age to complete this topic RSV Immunizations Under 20 Months Aged Out No longer eligible based on patient's age to complete this topic Goals Goal Patient Goal Type Associated Problems Recent Progress Patient-Stated? Author Safety - demonstrates understanding of home safety measures General No Iwona Romero RN Health - patient able to perform ADLs independently General No Bryan Zhong RN Medical Devices Implanted Type Area Shovel Engineer Device Identifier Shelf Expiration Date Model / Serial / Lot Graft Infuse Bone Xsmall - [id number] Implanted:Qt y: 1 on 04/22/2021 by Ceferino Grijalva MD at [facility] Bone Right: Spine Lumbar [employer] 06/15/2022 [id number] / / [id number] J Description:RECONSTITUTION F OR 15 MINUTES Filler Bone 5cc 12.5cc Calcium Sulfate Stimulan Rapid Cure - [id number] Implanted:Qt y: 1 on 04/22/2021 by Ceferino Grijalva MD at [facility] Bone Right: Spine Lumbar [employer] [id number] 10/14/2023 [id number] / / [id number] Medtronic Interbody Cage Pl[address], Long Implanted:Qt y: 1 on 04/22/2021 by Ceferino Grijalva MD at [facility] Spine Components Right: Spine Lumbar [employer] [id number] 12/27/2028 [id number] / / [id number] Explanted Type Area Shovel Engineer Device Identifier Shelf Expiration Date Model / Serial / Lot Screw Set Medtronic 4.75 Titanium Spine Percutaneous Solera 4.75 Mm Milo - [id number] Implanted:Qty: 4 on 04/22/2021 by Ceferino Grijalva MD at [facility] Explanted:Qty: 4 on 08/11/[address] [facility] Screw Spine Lumbar [employer] [id number] / / Voyager Screw Implanted:Qty: 4 on 04/22/2021 by Ceferino Grijalva MD at [facility] Explanted:Qty: 4 on 08/11/[address] [facility] Spine Lumbar [employer] SOFAMOR DANEK - DIV [employer] [id number] / / Voyager Milo Implanted:Qty: 2 on 04/22/2021 by Ceferino Grijalva MD at [facility] Explanted:Qty: 2 on 08/11/[address] [facility] Spine Lumbar [employer] SOFAMOR DANEK - DIV [employer] [id number] / / Procedures Procedure Name Priority Date/Time Associated Diagnosis Comments URINALYSIS AUTO DIP Routine 12/20/2024 Dysuria HEMOGLOBIN, GLYCOSYLATED Routine 10/02/2024 Type 2 diabetes mellitus with other circulatory complication, with long-term current use of insulin (CMS/HCC HHS/HCC) LIPID PANEL Routine 04/18/2024 1:14 PM CDT Type 2 diabetes mellitus with other circulatory complication, with long-term current use of insulin Primary hypertension Mixed hyperlipidemia HEPATITIS C ANTIBODY Routine 10/19/2023 1:19 PM GREIGE GOODS INSPECTOR Type 2 diabetes mellitus with other circulatory complication, with long-term current use of insulin Mixed hyperlipidemia Primary hypertension COLONOSCOPY GENERIC (SCAN ORDER) Routine 08/01/2015 from Last 3 Months or Most Recently Relevant to Health Maintenance Results * (ABNORMAL) URINALYSIS AUTO DIP (12/20/2024) COLOR (U) DARK YELLOW YELLOW [facility] TRANSPARENCY TURBID(A) CLEAR [facility] GLUCOSE (U) >=1000 mg/dl(A) NEGATIVE MG/DL [facility] BILIRUBIN (U) NEGATIVE NEGATIVE [facility] [place] MG/DL (U) 5 (TRACE)(A) NEGATIVE MG/DL [facility] SPECIFIC GRAVITY (U) 1.020 1.001 - 1.035 [facility] BLOOD (U) NEGATIVE NEGATIVE [facility] U PH 6.0 5.0 - 9.0 [facility] PROTEIN (U) NEGATIVE NEGATIVE mg/dL [facility] UROBILINOGEN 2.0(A) 0.2 - 1.0 EU/dL = mg/dL [facility] NITRITES NEGATIVE NEGATIVE MG/DL [facility] LEUKOCYTES (U) NEGATIVE NEGATIVE [facility] URINE SPECIMEN OBTAINED BY CLEAN CATCH PROCEDURE / Unknown 12/20/2024 Constantino Babb MD URINE ORDERABLES Final Result Performing Organization Address City/[facility]/ZIP Co de Phone Number [facility] [address] [place] [address], [place] * HEMOGLOBIN, GLYCOSYLATED (10/02/2024) HGB A1C 5.5 % [facility] 10/02/2024 Constantino Babb MD LABORATORY Final Result Performing Organization Address [facility] Co de Phone Number [facility] [address] [place] [address], [place] * LIPID PANEL (04/18/2024 1:14 PM CDT) CHOLESTEROL 132 <200 MG/DL 04/18/2024 7:49 PM CDT [facility] TRIGLYCERIDES 134 <150 MG/DL 04/18/2024 7:49 PM CDT [facility] HDL 46 >40 MG/DL 04/18/2024 7:49 PM CDT [facility] LDL-C 59 <100 MG/DL 04/18/2024 7:49 PM CDT [facility] VLDL CALCULATION 27 5 - 28 MG/DL 04/18/2024 7:49 PM CDT [facility] CHOL/HDL RATIO 2.9 0.0 - 4.0 04/18/2024 7:49 PM CDT [facility] LDL/HDL 1.3 0.41 - 2.13 04/18/2024 7:49 PM CDT [facility] NON HDL CHOLESTEROL 86 <140 MG/DL 04/18/2024 7:49 PM CDT [facility] 04/18/2024 1:14 PM CDT Constantino Babb MD LABORATORY Final Result Performing Organization Address City/[facility]/ZIP Co de Phone Number [facility] [address] [place] [address], [place] [phone] * HEPATITIS C ANTIBODY (10/19/2023 1:19 PM GREIGE GOODS INSPECTOR) HEPATITIS C AB NON-REACTI VE NON-REACT CHANCE 10/19/2023 10:02 PM GREIGE GOODS INSPECTOR [facility] Comment: ANTIBODIES TO HCV NOT DETECTED. DOES NOT EXCLUDE THE POSSIBILITY OF EXPOSURE TO HCV. 10/19/2023 1:19 PM GREIGE GOODS INSPECTOR Constantino Babb MD LABORATORY Final Result [facility] [address] [place] [address], [place] [phone] * COLONOSCOPY (08/01/2015) us Documents Scanned SCANNING Final Result [facility] from Last 3 Months or Most Recently Relevant to Health Maintenance Insurance [facility] Advance Directives Documents on File Type Date Recorded Patient Heel Emery Buffer Expl anation Advance Directives and Living Will 10/15/2021 10:33 AM 10/14/2021 POA for HEALTHCARE * Full Code (Latest Code Status on File) Date Activated Date Inactivated Comments 08/11/2022 5:27 PM 08/12/2022 6:21 PM * Full Code Date Activated Date Inactivated Comments 08/11/2022 5:27 PM 08/11/2022 5:27 PM * Full Code Date Activated Date Inactivated Comments 05/05/2022 1:43 PM 06/11/2022 12:14 PM * Full Code Date Activated Date Inactivated Comments 10/13/2021 9:47 PM 10/14/2021 5:13 PM * Full Code Date Activated Date Inactivated Comments 04/22/2021 5:41 PM 04/23/2021 5:15 PM Care Teams Crepe Sole Wire Brusher Relationship Specialty Start Date End Date Constantino Babb MD [address] [place] [address] PCP - General 09/01/16 Odell Munoz MD [id number] [place] [address] Referring Physician VASCULAR SURGERY 03/31/21 Wero Blake MD [address] [place] [address] Consulting Physician PULMONARY DISEASE 03/31/21 Richard Corea MD [address] [facility] [address], [place] [address] CARDIOVASCULAR DISEASE 08/03/22
--- OUTSIDE RECORDS SUMMARY | 2025-01-01 10:13 | XMS_ITS | Encounter Summary ---
Author Organization [facility] Address [facility] [place] [address] Care Team Providers Care Canal Lock Tender Chief Operator Name Role Phone Constantino Babb MD Primary Care Provider [phone] Odell Munoz MD Unavailable Wero Blake MD Unavailable [phone] Richard Corea MD Unavailable [phone] Encounter Details Date Type Department Care Team (Late st Contact Info) Description 04/15/2021 Prep for Procedure [facility] [address] Ceferino Grijalva MD [address] [place] [address] Social History Tobacco Use Types [...] move on to questions 3-9 1 03/17/2021 Comments No Sex and Gender Information Value Date Recorded Sex Assigned at Female 10/02/2024 1:30 PM SECURITY ALARM INSTALLER Legal Sex Female 6:48 PM CDT Gender Identity Not on file Sexual Orientation Not on file COVID-19 Exposure Response Date Recorded In the last month, have you been in contact with someone who was confirmed or suspected to have Coronavirus / COVID-19? No / Unsure 03/31/2021 8:13 AM CDT documented as of this encounter Plan of Treatment Upcoming Encounters Date Type Department Care Team (Late st Contact Info) Description 04/02/2025 10:00 AM CDT Laboratory Only [facility] Family & Internal [address] [address] Constantino Babb MD [address] [place] [address] 04/09/2025 1:20 PM CDT Office Visit [facility] Family & Internal [address] [address] Constantino Babb MD [address] [place] [address] 09/27/2025 1:40 PM SECURITY ALARM INSTALLER Office Visit [facility] Multispecialty Care - [facility] [address] [facility], [address] [place] [id number] Araceli Grullon MD [address] [place] [address] documented as of this encounter Visit Diagnoses Diagnosis Preop examination- Primary Preoperative examination, unspecified documented in this encounter Additional Health Concerns Infection Onset Date Last Indicated Resolved Time COVID-19 Rule Out 04/15/2021 04/15/2021 04/15/2021 3:45 PM CDT COVID-19 Rule Out 04/18/2021 04/18/2021 04/19/2021 11:46 AM CDT COVID-19 Rule Out 10/13/2021 10/13/2021 10/13/2021 5:21 PM SECURITY ALARM INSTALLER Assessment Noted Time PHQ-9 Depression Total Score: 1 03/17/20 21 7:48 AM CDT documented as of this encounter Care Teams Canal Lock Tender Chief Operator Relationship Specialty Start Date End Date Constantino Babb MD [address] [place] [address] PCP - General 09/01/16 Odell Munoz MD Three [facility]. [facility] [address] [place], [place] [id number] Referring Physician VASCULAR SURGERY 03/31/21 Wero Blake MD 3rd [facility] [address] [place], [place] [id number] Consulting Physician PULMONARY DISEASE 03/31/21 Richard Corea MD [address] [facility] [address] [address] CARDIOVASCULAR DISEASE 08/03/22 documented as of this encounter
--- OUTSIDE RECORDS SUMMARY | 2025-01-01 10:13 | XMS_ITS | Encounter Summary ---
Author Organization [facility] Address [facility] [place] [address] Care Team Providers Care Sugar Grinder Name Role Phone Constantino Babb MD Primary Care Provider [phone] Odell Munoz MD Unavailable Wero Blake MD Unavailable [phone] Richard Corea MD Unavailable [phone] Encounter Details Date Type Department Care Team (Late st Contact Info) Description 08/24/2023 MyChart Message Enc [facility] Multispecialty Care - [address] [place] [address] Wero Blake MD [address] [place] [address] [address] [place] [address] Need assistance on a med and broken Meter Social History Tobacco Use Types Packs/Day [...] Master's degree (e.g., MA, MS, [place], MEd, CLIENT EVALUATOR, MEGAN) 06/19/2021 Comments No Sex and Gender Information Value Date Recorded Sex Assigned at Female 10/02/2024 1:30 PM JUICE WEIGHER Legal Sex Female 6:48 PM CDT Gender Identity Not on file Sexual Orientation Not on file documented as of this encounter Functional Status * RETIRED Are you deaf or do you have serious difficulty hearing Answer Date of Assessment Author Status No 08/11/2022 5:00 PM JUICE WEIGHER Activ e * RETIRED Are you blind or do you have serious difficulty seeing, even when wearing glasses? Answer Date of Assessment Author Status No 08/11/2022 5:00 PM JUICE WEIGHER Activ e * Do you have serious [...] Description 04/02/2025 10:00 AM CDT Laboratory Only [facility] Family & Internal Medicine - [address] [address] Constantino Babb MD [address] [place] [address] 04/09/2025 1:20 PM CDT Office Visit [facility] Family & Internal Medicine - [place] [address] [place] [address] Constantino Babb MD [address] [place] [address] 09/27/2025 1:40 PM JUICE WEIGHER Office Visit [facility] Multispecialty Care - [facility] [address] [facility], [address] [place] [phone] Araceli Grullon MD [address] [place], [place] [id number] documented as of this encounter Goals Goal [...] documented as of this encounter Care Teams Sugar Grinder Relationship Specialty Start Date End Date Constantino Babb MD [address] [place] [address] PCP - General 09/01/16 Odell Munoz MD Three [facility]. [address] [place], [place] [phone] Referring Physician VASCULAR SURGERY 03/31/21 Wero Blake MD [address] [facility] [address] [place] [address] Consulting Physician PULMONARY DISEASE 03/31/21 Richard Corea MD [address] [facility] [address] [place] [phone] CARDIOVASCULAR DISEASE 08/03/22 documented as of this encounter
--- OUTSIDE RECORDS SUMMARY | 2025-01-01 10:13 | XMS_ITS | Continuity of Care Document ---
Author Name [facility] Organization [facility] Care Team Providers Care Livestock Yard Supervisor Name Role Phone [facility] Unavailable Unavailable Problems [...] DAILY RF1 #[id number] on 23 Mar [id number]@9426 (Not Dispensed) . . . . . [...] and dental visits. Keep in touch with [facility] for next year. Will also meet [...] (duloxetine HCl), 30 MG, CAPSULE , ORAL, Responsys, 1000 ea. BOTTLE Cancele d [id number] : 2023 0 Pharmac y Data Transac tion Service Facilit y ONDANSETRON ODT (ONDANSETRO N), 4 MG, TAB RAPDIS, ORAL, CITRON PHARMA L, 30 ea. BLIST PACK Active [id number] 4 2023 9 Pharmac y Data Transac tion Service Facilit y ONDANSETRON ODT (ONDANSETRO N), 4 MG, TAB RAPDIS, ORAL, CITRON PHARMA L, 30 ea. BLIST PACK Active [id number] 4 2023 9 Pharmac y Data Transac tion Service Facilit y ONDANSETRON ODT (ONDANSETRO N), 4 MG, TAB RAPDIS, ORAL, CITRON PHARMA L, 30 ea. BLIST PACK Active [id number] 4 2023 9 Pharmac y Data Transac tion Service Facilit y ONDANSETRON ODT (ONDANSETRO N), 4 MG, TAB RAPDIS, ORAL, CITRON PHARMA L, 30 ea. BLIST PACK Active [id number] 4 2023 9 Pharmac y Data Transac tion Service Facilit y ONDANSETRON ODT (ONDANSETRO N), 4 MG, TAB RAPDIS, ORAL, CITRON PHARMA L, 30 ea. BLIST PACK Active [id number] 4 2023 2 Pharmac y Data Transac tion Service Facilit y Allergies, Adverse Reactions, Alerts Combined list of allergies from Department of Defense and Veterans Affairs facilities. It does not include entries that were removed or entered in error. Substance Category Reaction Severity Reaction type Status Date Reported Comments Source CODEINE Drug allergy (disorder) Unknown active 4 [facility] [place] OTHER {Cla } Drug allergy (disorder) Rash active [address] [place] [address] Michael CARRIZALES ([facility]) PREDNISONE (PREDNISONE) Drug allergy (disorder) Rash active [address] [place] [address] Michael CARRIZALES ([facility]) TETRACYCLINE (TETRACYCLINE) Drug allergy (disorder) Unknown active 4 [facility] [place] WELLBUTRIN (BUPROPION HCL) Drug allergy (disorder) Unknown [facility] 5 [facility] [place] ZOCOR (SIMVASTATIN) Drug allergy (disorder) Unknown active 4 [facility] [place] Immunizations Combined list of available immunizations from the Department of Defense and Veterans Affairs facilities. Immunization Series Date Given Administered By Site Reaction Lot Number CVX Code Drug Corporate Attorney Status Comments Source influenza virus vaccine, split virus (incl. purified surface antigen)-reti red CODE 1 2009 Unknown, Provider [id number] 15 Sanofi Pasteur ([facility]) complet ed influenza virus vaccine, split virus (incl. purified surface antigen)- retired CODE DoD influenza virus vaccine, split virus (incl. purified surface antigen)-reti red CODE 1 2008 Unknown, Provider [id number] 15 Sanofi Pasteur ([facility]) complet ed influenza virus vaccine, split virus (incl. purified surface antigen)- retired CODE DoD influenza virus vaccine, split virus (incl. purified surface antigen)-reti red CODE 1 2007 Unknown, Provider [id number] 15 Sanofi Pasteur ([facility]) complet ed influenza virus vaccine, split virus (incl. purified surface antigen)- retired CODE [facility] tetanus and diphtheria toxoids, adsorbed, preservative free, for adult use (2 Lf of tetanus toxoid and 2 Lf of diphtheria toxoid) 1 2002 Unknown, Provider [id number] 09 Sanofi Pasteur ([facility]) complet ed tetanus and diphtheri a toxoids, adsorbed, preservat chance free, for adult use (2 Lf of tetanus toxoid and 2 Lf of diphtheri a toxoid) DoD influenza virus vaccine, split virus (incl. purified surface antigen)-reti red CODE 1 2002 Unknown, Provider [id number] 15 Sanofi Pasteur ([facility]) complet ed influenza virus vaccine, split virus [...] ADM Date DC Date Status Disposition Source [facility] [place]( [facility]ud[place] TELE CONSULT [id number] NEEDS REFILL ON MEDICAT ION LUCA WEIR 04/15 [facility] [facility]) OUTPATIENT [id number] back pain SONI KING Kamar O 07/18 Released w/o Limitations [facility] [facility] OUTPATIENT [id number] F/UP FOR BACK PROBLEM AURORA ALFONZO J 07/21 Released w/o Limitations [facility] [facility]) OUTPATIENT [id number] NON PRODUCT CHANCE COUGH ARTIS PENA Allyssa 07/28 Released w/o Limitations [facility] [facility] TELE CONSULT [id number] CHARLEE LINE- DIZZNES S/PRESS URE ON FACE/NA WERNER RAMOS 09/04 [facility] [facility]) OUTPATIENT [id number] f/u BRAEDEN MALAVE 09/07 Released w/o Limitations [facility] [facility] TELE CONSULT [id number] NEEDS REFILL DURRENCE, TRACY A. 10/06 [facility] [facility] OUTPATIENT [id number] f/u for bp check AUREA GALVEZ 10/15 Released w/o Limitations [facility] [facility] OUTPATIENT [id number] F/UP ASTHMA ATTACK- [facility] AUREA GALVEZ 10/20 Released w/o Limitations [facility] [facility] TELE CONSULT [id number] needs med today DURRENCE, TRACY A. 10/30 [facility] [facility]) OUTPATIENT [id number] ASTHMA RECHECK SAMUEL GARCIA 11/05 Released w/o Limitations [facility] [place] [facility] TELE CONSULT [id number] MED REFILL DURRENCE, TRACY A. 11/30 [facility] [facility] [facility]) [place]IENT [id number] [facility] MAXIMILIAN BOSTON 12/18 Released w/o Limitations [facility] [facility] [facility] TELE CONSULT [id number] MED REFILL DURRENCE, TRACY A. 01/13 [facility]) OUTPATIENT [id number] f/up from [facility] SONI Calzada 02/17 Released w/o Limitations [facility] TELE CONSULT [id number] needs med refill TODAY, PCSING THIS EVENING DURRENCE, TRACY A. 02/18 [place] [address] [place] [address])(Fam antony Practice Non-GME FHI1) TELE CONSULT [id number] Needs blood pressur e medicat ion ELISABETH Estrella 05/[address] [place] [address])(F amily Practic e Non-GME FHI1) [address] [place] [address] Michael [facility])(Fam antony Practice Non-GME FHI2) OUTPATIENT [id number] new pt needs to discuss meds and medical issue JOSSELIN STANFORD 06/07 Released w/o Limitations [address] [place] [address] Michael [facility])(F amily Practic e Non-GME FHI2) [address] [place] [address] Michael [facility])(Phy sical Therapy) OUTPATIENT [id number] OUSMANE PRINCE 06/15 Released w/o Limitations [address] [place] [address] Michael [facility])(P hysical Therapy ) [address] [place] [address] Michael [facility])(Phy sical Therapy) OUTPATIENT [id number] BACK STRAIN SACROIL IAC REGION CHRONIC LUMBOSA CRAL STRAIN KASI HERNANDEZ 06/22 Released w/o Limitations [facility] [employer] ([facility])(P hysical Therapy ) [address] [place] [address] [employer] ([facility])([facility] antony Practice Non-GME FHI2) OUTPATIENT [id number] foot pain ZOHAIB JUDGE Good 08/20 Released w/o Limitations [facility] [employer] ([facility])(F amily Practic e Non-GME FHI2) [address] [place] [address] Group [employer] ([facility])([facility]) OUTPATIENT [id number] itching all over body KORTNEY HANNAH Yamil 08/26 Released w/o Limitations [facility] [employer] ([facility])(A Care Clinic) [address] [place] [address] [employer] ([facility]) OUTPATIENT [id number] f/u on asthma ZOHAIB JUDGE 09/03 Released w/o Limitations [facility] Michael RACHELB ([facility])(F amily Practic e Non-GME FHI1) [address] [place] [address] [employer] ([facility]2) OUTPATIENT [id number] asthma CAT JONAS 03/10 Released w/o Limitations [facility] Michael RACHELB ([facility])(F amily Practic e Non-GME FHI2) [address] [place] [address] [employer] ([facility] Non-GME FHI1) OUTPATIENT [id number] tobacco cessati on class JERROD NGO P 03/16 Released w/o Limitations [facility] [employer] ([facility])(F amily Practic e Non-GME FHI1) [facility] [employer] ([facility])([facility] antony Practice Non-GME FHI2) OUTPATIENT [id number] f/u asthma CATINA ANTUNEZ 03/17 Released w/o Limitations [facility] [employer] ([facility])(F amily Practic e Non-GME FHI2) [address] [place] [address] Group [employer] ([facility])([facility] antony Practice Non-GME FHI1) OUTPATIENT [id number] tobacco cessati on class #6 JERROD NGO P 04/27 Released w/o Limitations [address] [place] [address] Michael [facility])(F amily Practic e Non-GME FHI1) [address] [place] [address] Michael [facility])([employer] ecology) OUTPATIENT [id number] well women exam JA MIRELES L 06/30 Released w/o Limitations [address] [place] [address] Michael [facility])(G ynecolo gy) [address] [place] [address] Michael [facility])(Fam antony Practice Non-GME FHI1) TELE CONSULT [id number] SOLOMON Watts 07/[address] [place] [address] Michael [facility])(F amily Practic e Non-GME FHI1) [address] [place] [address] Michael [facility] F[facility]2) OUTPATIENT [id number] low bp, dizzy INNA PEPE 07/04 Released w/o Limitations [address] [place] [address] Michael [facility])(F amily Practic e Non-GME FHI2) [address] [place] [address] Michael [facility])([facility] Non-GME FHI1) TELE CONSULT [id number] Medicat ion refill- SOLOMON Morni 08/[address] [place] [address] Michael [facility])(F amily Practic e Non-GME FHI1) [address] [place] [address] Michael [facility])([facility] antony Practice Non-GME FHI2) OUTPATIENT [id number] ongoing dizzine ss, poss r/t HTN meds? INNA PEPE 08/30 Released w/o Limitations [address] [place] [address] Michael [facility])(F amily Practic e Non-GME FHI2) [address] [place] [address] Michael [facility])([facility] Practice Non-GME FHI1) TELE CONSULT [id number] refill med/req uest modesto glynn - MIKY Diaz 08/[address] [place] [address])(F amily Practic e Non-GME FHI1) [address] [place] [address] Michael [facility])([facility]) OUTPATIENT [id number] new diabeti KARMEN Tomas 09/13 Released w/o Limitations [address] [place] [address] Michael B [facility])(N utritio nal Medicin e) [address] [place] [address] Michael [facility])(Fam antony Practice Non-GME FHI2) OUTPATIENT [id number] f/u diabete s INNA PEPE 09/14 Released w/o Limitations [address] [place] [address] ([facility])(F amily Practic e Non-GME FHI2) [address] [place] [address])([facility] antony Practice Non-GME FHI2) TELE CONSULT [id number] [facility] 09[facility] [place] [address] Michael [facility])(F amily Practic e Non-GME FHI2) [address] [place] [address])([facility] antony Practice Non-GME FHI2) TELE CONSULT [id number] PCM: milagros Stanford started lantus for new dx dm, states fingers ticks 200-275 . SOLOMON CASTELAN 09/[address] [place] [address] Michael [facility])(F amily Practic e Non-GME FHI2) [address] [place] [address] Michael [facility])([facility] antony Practice Non-GME FHI2) OUTPATIENT [id number] f/u diabtyrone collins will melissa fs log JOSSELIN STANFORD 09/28 Released w/o Limitations [address] [place] [address] Michael [facility])(F amily Practic e Non-GME FHI2) [address] [place] [address])([facility] antony Practice Non-GME FHI1) TELE CONSULT [id number] Referra l roger -SOLOMON Morin 10/[address] [place] [address] Michael [facility])(F amily Practic e Non-GME FHI1) [address] [place] [address] Michael B [facility])([facility] antony Practice Non-GME FHI2) OUTPATIENT [id number] f/u diabete JOSSELIN Boland 10/24 Released w/o Limitations [address] [place] [address] Michael B [facility])(F amily Practic e Non-GME FHI2) [address] [place] [address])(All ergy Resource Sharing) OUTPATIENT [id number] ASTHMA LISA-SAMANTHA PIZARRO 10/26 Released w/o Limitations [address] [place] [address] Group Michael RAMOSB ([facility])(A llergy Resourc e Sharing ) [address] [place] [address] Michael B [facility])([facility] antony Practice Non-GME FHI1) TELE CONSULT [id number] call back - stanford SOLOMON CASTELAN 10/[address] [place] [address] Michael B ([facility])(F amily Practic e Non-GME FHI1) [address] [place] [address] Michael [facility])(Fam antony Practice Non-GME FHI1) TELE CONSULT [id number] call back/ol ROSY Solis 11/[address] [place] [address] Michael B [facility])(F amily Practic e Non-GME FHI1) [address] [place] [address] Michael B [facility])(All ergy Resource Sharing) OUTPATIENT [id number] skin test SAMANTHA HERNANDEZ 11/09 Released w/o Limitations [address] [place] [address] ([facility])(A llergy Resourc e Sharing ) [address] [place] [address] Michael [facility])([facility] antony Practice Non-GME FHI1) TELE CONSULT [id number] call back/ol ELISABETH Valverde 11/[address] [place] [address] Michael [facility])(F amily Practic e Non-GME FHI1) [address] [place] [address] Michael B [facility])(Fam antony Practice Non-GME FHI2) OUTPATIENT [id number] elevate d BS/depr ession and anxiety medJOSSELIN Boland 11/15 Released w/o Limitations [address] [place] [address] Michael [facility])(F amily Practic e Non-GME FHI2) [address] [place] [address] Michael B [facility])(Fam antony Practice Non-GME FHI2) TELE CONSULT [id number] questio ns- SOLOMON Ca 11/[address] [place] [address] Michael B [facility])(F amily Practic e Non-GME FHI2) [address] [place] [address] Michael B [facility])(Fam antony Practice Non-GME FHI1) OUTPATIENT [id number] severe nausea x 3 days URBAN PEREIRA 11/22 Released w/o Limitations [address] [place] [address] Michael B [facility])(F amily Practic e Non-GME FHI1) [address] [place] [address])([facility] F[facility]1) TELE CONSULT [id number] refill med, call back/ol ELISABETH Valverde 11/[address] [place] [address])(F amily Practic e Non-GME FHI1) [address] [place] [address])([facility] Non-GME FHI2) TELE CONSULT [id number] call back - SOLOMON Ca 12/[address] [place] [address])(F amily Practic e Non-GME FHI2) [address] [place] [address])([facility] Non-GME FHI2) OUTPATIENT [id number] nausea x 15 days, back pain, muscle aches CONSTANTINO WINTERS 12/05 Released w/o Limitations [address] [place] [address])(F amily Practic e Non-GME FHI2) [address] [place] [address])([facility] Non-GME FHI2) TELE CONSULT [id number] PCM: Jared, pt states she's out of area and needs meds, [phone] SOLOMON CASTELAN 12/[address] [place] [address])(F amily Practic e Non-GME FHI2) [address] [place] [address])([facility] Non-GME FHI2) OUTPATIENT [id number] f/u diabete s JOSSELIN STANFORD 01/03 Released w/o Limitations [address] [place] [address])(F amily Practic e Non-GME FHI2) [address] [place] [address])(Opt ometry) OUTPATIENT [id number] diabeti c eye exam ARIELLA FELDER 01/04 Released w/o Limitations [address] [place] [address])(O ptometr y) [address] [place] [address])([facility] Non-GME FHI2) TELE CONSULT [id number] med refill -- MIKY Diaz 02/[address] [place] [address])(F amily Practic e Non-GME FHI2) [address] [place] [address])([facility] Practice Non-GME FHI1) TELE CONSULT [id number] SOLOMON Watts 03/[address] [place] [address])(F amily Practic e Non-GME FHI1) [address] [place] [address])([facility] antony Practice Non-GME FHI2) TELE CONSULT [id number] meds request - ELISABETH Madrigal 03/[address] [place] [address])(F amily Practic e Non-GME FHI2) [address] [place] [address])([facility] antony Practice Non-GME FHI2) OUTPATIENT [id number] SEVERE COUGH CONGEST INNA GONZALEZ 05/25 Released w/o Limitations [address] [place] [address])(F amily Practic e Non-GME FHI2) [address] [place] [address])([facility] antony Practice Non-GME FHI2) TELE CONSULT [id number] Rx Refill - SOLOMON Morin 06/[address] [place] [address])(F amily Practic e Non-GME FHI2) [address] [place] [address])([facility] ) OUTPATIENT [id number] New pt, HTN, HLP and multipl e chronic issues BHAVESH LUCAS 06/15 Released w/o Limitations [address] [place] [address] Michael [facility])(S cott Interna l Medicin e Tm) [address] [place] [address] Michael [facility])([facility] ) TELE CONSULT [id number] BHAVESH LUCAS 06/[address] [place] [address])(S cott Interna l Medicin e Tm) [address] [place] [address])([facility] ) OUTPATIENT [id number] f/u htn BHAVESH LUCAS 07/06 Released w/o Limitations [address] [place] [address] Michael [facility])(S cott Interna l Medicin e Tm) [address] [place] [address])([facility] ) TELE CONSULT [id number] need med refill MACARENA VALDES 08/22 [facility] Michael RACHELB ([facility])(S cott Interna l Medicin e Tm) [facility] Michael B ([facility])([facility] ) TELE CONSULT [id number] med refill MACARENA VALDES 09/11 [facility] Michael [facility] ([facility])(S cott Interna l Medicin e Tm) [facility] Michael [facility])([facility] ) OUTPATIENT [id number] BHAVESH Espinoza 09/21 Released w/o Limitations [facility] Michael B ([facility])(S cott Interna l Medicin e Tm) [facility] Michael [employer] ([facility])([facility] ) TELE CONSULT [id number] Results BHAVESH LUCAS 10/02 [facility] Michael [place] ([facility])(S cott Interna l Medicin e Tm) [facility] Michael [facility])([facility] ) OUTPATIENT [id number] knot on forehea JOHANN Toribio 11/16 Released w/o Limitations [facility] Michael [facility] ([facility])(S cott Interna l Medicin e Tm) [facility] Michael [facility])([facility] ) TELE CONSULT [id number] Rx Refill MACARENA VALDES 11/26 [facility] Michael [facility] ([facility])(S cott Interna l Medicin e Tm) [facility] Michael [facility])([facility] ) OUTPATIENT [id number] BHAVESH Espinoza 12/13 Released w/o Limitations [facility] Michael RACHELSelma ([facility])(S cott Interna l Medicin e Tm) [facility] Michael B ([facility])([facility] ) TELE CONSULT [id number] NEEDS APT MACARENA VALDES 12/25 [facility] Michael B ([facility])(S cott Interna l Medicin e Tm) [facility] Michael B [facility])([facility] ) OUTPATIENT [id number] elevate d blood sugars, numbnes s right heel, sore throat MANPREET CASTELLON 12/26 Released w/o Limitations [employer] ([facility])(S cott Interna l Medicin e Tm) [employer] Michael RACHELB ([facility])([employer] [facility] [place] tt Internal Medicine Tm) TELE CONSULT [id number] Lab results BHAVESH LUCAS 01/09 [facility] Michael RAMOSB ([facility])(S cott Interna l Medicin e Tm) [facility] [employer] ([facility])([facility] [place] tt Internal Medicine Tm) OUTPATIENT [id number]|2025-01-01 10:13:00|2025-01-01 10:13:00|XMS_ITS|BKG DAEMON|External Medical Summaries|[id number]|" Encounter Summary Created on: January 01, 2025 Darlyn Zhu : 1960 Sex: Female Author Organization [facility] Address [address] [place] [address] Care Team Providers Care Livestock Yard Supervisor Name Role Phone Constantino Babb MD Primary Care Provider [phone] Odell Munoz MD Unavailable Wero Blake MD Unavailable [phone] Zohaib Corea MD Unavailable [phone] Encounter Details Date Type Department Care Team (Late st Contact Info) Description 12/13/2023 Therapy Plan [facility] Physical Therapy [address] [facility] [address] [place] [address] [place]y [place], [place] [address] Social History Tobacco Use Types Packs/Day Years [...] Answer Date Recorded Patient Health Questionnaire-2 Score 3 09/30/2023 Education Answer Date Recorded What is the highest level of school you have completed or the highest degree you have received? Master's degree (e.g., MA, MS, Fortino, MEd, HOIST MECHANIC, MEGAN) 06/19/2021 Comments No Sex and Gender Information Value Date Recorded Sex Assigned at Female 10/02/2024 1:30 PM STOKER INSTALLATION MECHANIC Legal Sex Female 6:48 PM CDT Gender Identity Not on file Sexual Orientation Not on file documented as of this encounter Functional Status * RETIRED Are you deaf or do you have serious difficulty hearing Answer Date of Assessment Author Status No 08/11/2022 5:00 PM STOKER INSTALLATION MECHANIC Activ e * RETIRED Are you blind or do you have serious difficulty seeing, even when wearing glasses? Answer Date of Assessment Author Status No 08/11/2022 5:00 PM STOKER INSTALLATION MECHANIC Activ e * Do you have serious difficulty walking or climbing stairs? Answer Date of Assessment Author Status Yes 08/11/2022 5:00 PM STOKER INSTALLATION MECHANIC Ángela Soler RN Active * Do you have difficulty dressing or bathing? Answer Date of Assessment Author Status No 08/11/2022 5:00 PM Ángela Goins RN Active * Because of a physical, mental, or emotional condition, do you have difficulty doing errands alone such as visiting a doctor's office or shopping? Answer Date of Assessment Author Status No 08/11/2022 5:00 PM STOKER INSTALLATION MECHANIC Soler, Ángela K , RN Active documented as of this encounter Mental Status * Because of a physical, mental, or emotional condition, do you have serious difficulty concentrating, remembering, or making decisions? Answer Entry Date Author Status No 08/11/2022 5:00 PM STOKER INSTALLATION MECHANIC Ángela Soler RN Active documented in this encounter Plan of Treatment Upcoming Encounters Date Type Department Care Team (Late st [facility] Info) Description 04/02/2025 10:00 AM CDT Laboratory Only [facility] Family & Internal [address] [address] Constantino Babb MD [address] [place] [address] 04/09/2025 1:20 PM CDT Office Visit [facility] Internal [address] [address] Constantino Babb MD [address] [place] [address] 09/27/2025 1:40 PM STOKER INSTALLATION MECHANIC Office Visit [facility] Multispecialty Care - [facility] 3 [facility], [address] [place] [address] Araceli Grullon MD [address] [place] [address] documented as of this encounter Goals Goal [...] Assessment Noted Time PHQ-9 Depression Total Score: 5 09/30/19 24 10:33 AM STOKER INSTALLATION MECHANIC documented as of this encounter Care Teams Livestock Yard Supervisor Relationship Specialty Start Date End Date Constantino Babb MD [address] [place] [address] PCP - General 09/01/16 Odell Munoz MD [facility]. [facility] [address] [place] [address] Referring Physician VASCULAR SURGERY 03/31/21 Wero Blake MD [address] [place] [address] [address] [place] [address] Consulting Physician PULMONARY DISEASE 03/31/21 Zohaib Corea MD [address] [facility] [address], [place] [address] CARDIOVASCULAR DISEASE 08/03/22 documented as of this encounter "
--- OUTSIDE RECORDS SUMMARY | 2025-01-01 10:14 | XMS_ITS | Encounter Summary ---
Author Organization [facility] Address [address] [place] [address] Care Team Providers Care English As A Second Language Instructor Name Role Phone Constantino Babb MD Primary Care Provider [phone] Odell Munoz MD Unavailable Wero Blake MD Unavailable [phone] Richard Corea MD Unavailable [phone] Encounter Details Date Type Department Care Team (Latest Contact Info) Description 04/19/2018 Abstract [facility] , Amita Becker MD Social History Tobacco Use Types Packs/Day Years Used Date Smoking Tobacco: Never Assessed Comments Unknown Sex and Gender Information Value Date Recorded Sex Assigned at Female 10/02/2024 1:30 PM ADVANCED PRACTICE NURSE Legal Sex Female 6:48 PM CDT Gender Identity Not on file Sexual Orientation Not on file documented as of this encounter Plan of Treatment Upcoming Encounters Date Type Department Care Team (Late st Contact Info) Description 04/02/2025 10:00 AM CDT Laboratory Only [facility] Medical [facility] Family & Internal Medicine [address] [address] Constantino Babb MD [address] [place] [address] 04/09/2025 1:20 PM CDT Office Visit [facility] Family & Internal Medicine - [place] [address] [place] [address] Constantino Babb MD [address] [place] [address] 09/27/2025 1:40 PM ADVANCED PRACTICE NURSE Office Visit [facility] Multispecialty Care - [facility] [address] [facility], [address] [place] [address] Araceli Grullon MD [address] [place], [place] [id number] documented as of this encounter Visit Diagnoses Not on filedocumented in this encounter Additional Health Concerns Infection Onset Date Last Indicated Resolved Time COVID-19 Rule Out 04/04/2021 04/04/2021 04/05/2021 7:21 PM CDT COVID-19 Rule Out 04/15/2021 04/15/2021 04/15/2021 3:45 PM CDT COVID-19 Rule Out 04/18/2021 04/18/2021 04/19/2021 11:46 AM CDT COVID-19 Rule Out 10/13/2021 10/13/2021 10/13/2021 5:21 PM ADVANCED PRACTICE NURSE documented as of this encounter Care Teams English As A Second Language Instructor Relationship Specialty Start Date End Date Constantino Babb MD [address] [place] [address] PCP - General 09/01/16 Odell Munoz MD Three [facility]. [address] [place], [place] [address] Referring Physician VASCULAR SURGERY 03/31/21 Wero Blake MD 3rd [facility] [address] [place], [place] [address] Consulting Physician PULMONARY DISEASE 03/31/21 Richard Corea MD [address] [facility] [address] [place] [place] [address] CARDIOVASCULAR DISEASE 08/03/22 documented as of this encounter
--- OUTSIDE RECORDS SUMMARY | 2025-01-01 10:14 | XMS_ITS | Encounter Summary ---
Author Organization [facility] Address [address] [place] [address] Care Team Providers Care Welder/Fitter Name Role Phone Constantino Babb MD Primary Care Provider [phone] Odell Munoz MD Unavailable Wero Blake MD Unavailable [phone] Richard Corea MD Unavailable [phone] Encounter Details Date Type Department Care Team (Late st Contact Info) Description 12/28/2022 MyChart Message Enc [facility] Medical Group Family & Internal Medicine - [place] [address] [place] [address] Constantino Babb MD [address] [place] [address] Injection denied Social History Tobacco Use Types Packs/Day Years [...] Master's degree (e.g., MA, MS, Fortino, MEd, KEYCASE ASSEMBLER, MEGAN) 06/19/2021 Comments No Sex and Gender Information Value Date Recorded Sex Assigned at Female 10/02/2024 1:30 PM FOUNDATION DRILL OPERATOR Legal Sex Female 6:48 PM CDT Gender Identity Not on file Sexual Orientation Not on file COVID-19 Exposure Response Date Recorded In the last 10 days, have yo u been in contact with someone who was confirmed or suspected to have Coronavirus/COVID-19? No / Unsure 12/21/2022 2:07 PM CDT documented as of this encounter Functional Status * RETIRED Are you deaf or do you have serious difficulty hearing Answer Date of Assessment Author Status No 08/11/2022 5:00 PM FOUNDATION DRILL OPERATOR Activ e * RETIRED Are you blind or do you have serious difficulty seeing, even when wearing glasses? Answer Date of Assessment Author Status No 08/11/2022 5:00 PM FOUNDATION DRILL OPERATOR Activ e * Do you have serious [...] HOSPITAL Medical Group Family & Internal Medicine [address] [address] Constantino Babb MD [address] [place] [address] 04/09/2025 1:20 PM CDT Office Visit [facility] Family & Internal Medicine - [place] [address] [place] [address] Constantino Babb MD [address] [place] [address] 09/27/2025 1:40 PM FOUNDATION DRILL OPERATOR Office Visit [facility] Multispecialty Care - [facility] 3 [facility], [address] [place] [address] Araceli Grullon MD [address] [place] [address] documented as of this encounter Goals Goal [...] documented as of this encounter Care Teams Welder/Fitter Relationship Specialty Start Date End Date Constantino Babb MD [address] [place] [address] PCP - General 09/01/16 Odell Munoz MD Three [facility]. [address] [place] [address] Referring Physician VASCULAR SURGERY 03/31/21 Wero Blake MD [address] [place] [address] Consulting Physician PULMONARY DISEASE 03/31/21 Richard Corea MD [address] [facility] [address] [place] [address] CARDIOVASCULAR DISEASE 08/03/22 documented as of this encounter
--- OUTSIDE RECORDS SUMMARY | 2025-01-01 10:14 | XMS_ITS | Encounter Summary ---
Author Organization [facility] Address [address] [place] [address] Care Team Providers Care Ethanol Maintenance Mechanic Name Role Phone Constantino Babb MD Primary Care Provider [phone] Odell Munoz MD Unavailable Wero Blake MD Unavailable [phone] Richard Corea MD Unavailable [phone] Encounter Details Date Type Department Care Team (Late st Contact Info) Description 02/10/2023 MyChart Message Enc [facility] Medical Group - [facility] [address] [place] [address] [facility] Provider Air Quality Message Social History Tobacco Use Types Packs/Day Years [...] Master's degree (e.g., MA, MS, Fortino, MEd, ENERGY ENGINEER, MEGAN) 06/19/2021 Comments No Sex and Gender Information Value Date Recorded Sex Assigned at Female 10/02/2024 1:30 PM FAGOTER Legal Sex Female 6:48 PM CDT Gender Identity Not on file Sexual Orientation Not on file COVID-19 Exposure Response Date Recorded In the last 10 days, have yo u been in contact with someone who was confirmed or suspected to have Coronavirus/COVID-19? No / Unsure 01/19/2023 2:38 PM CDT documented as of this encounter Functional Status * RETIRED Are you deaf or do you have serious difficulty hearing Answer Date of Assessment Author Status No 08/11/2022 5:00 PM FAGOTER Activ e * RETIRED Are you blind or do you have serious difficulty seeing, even when wearing glasses? Answer Date of Assessment Author Status No 08/11/2022 5:00 PM FAGOTER Activ e * Do you have serious difficulty walking or climbing stairs? Answer Date of Assessment Author Status Yes 08/11/2022 5:00 PM Ángela Goins RN Active * Do you have difficulty dressing or bathing? Answer Date of Assessment Author Status No 08/11/2022 5:00 PM FAGOTER Ángela Soler RN Active * Because of [...] Description 04/02/2025 10:00 AM CDT Laboratory Only [facility] Medical Group Family & Internal Medicine [place] [address] [place] [address] Constantino Babb MD [address] [place] [address] 04/09/2025 1:20 PM CDT Office Visit [facility] Family & Internal Medicine - [address] [address] Constantino Babb MD [address] [place] [address] 09/27/2025 1:40 PM FAGOTER Office Visit [facility] Multispecialty Care - [facility] 3 [facility], [address] [place] [address] Araceli Grullon MD 3 [facility] [address] [place], [place] [address] documented as of this encounter Goals Goal [...] documented as of this encounter Care Teams Ethanol Maintenance Mechanic Relationship Specialty Start Date End Date Constantino Babb MD [address] [place] [address] PCP - General 09/01/16 Odell Munoz MD Three [facility]. [address] [place], [place] [address] Referring Physician VASCULAR SURGERY 03/31/21 Wero Blake MD 3rd [facility] [address] [place], [place] [address] Consulting Physician PULMONARY DISEASE 03/31/21 Richard Corea MD [address] [address] CARDIOVASCULAR DISEASE 08/03/22 documented as of this encounter
--- OUTSIDE RECORDS SUMMARY | 2025-01-01 10:14 | XMS_ITS | Encounter Summary ---
Author Organization [facility] Address [facility] [place] [address] Care Team Providers Care Station Captain Name Role Phone Constantino Babb MD Primary Care Provider [phone] Odell Munoz MD Unavailable Wero Blake MD Unavailable [phone] Richard Corea MD Unavailable [phone] Encounter Details Date Type Department Care Team (Late st Contact Info) Description 01/22/2023 MyChart Message Enc [facility] Medical Group Multispecialty Care - [address] [place] [address] Wero Blake MD [address] [place] [address] [address] [place], [place] [address] [place] Social History Tobacco Use Types Packs/Day Years [...] Master's degree (e.g., MA, MS, Fortino, MEd, COLLISION CENTER MANAGER, MEGAN) 06/19/2021 Comments No Sex and Gender Information Value Date Recorded Sex Assigned at Female 10/02/2024 1:30 PM CANDY WRAPPING MACHINE OPERATOR Legal Sex Female 6:48 PM CDT [...] Assessment Author Status No 08/11/2022 5:00 PM CANDY WRAPPING MACHINE OPERATOR Activ e * RETIRED Are you blind or do you have serious difficulty seeing, even when wearing glasses? Answer Date of Assessment Author Status No 08/11/2022 5:00 PM CANDY WRAPPING MACHINE OPERATOR Activ e * Do you have [...] Description 04/02/2025 10:00 AM CDT Laboratory Only [facility] Family & Internal Medicine - [place] [address] [place] [address] Constantino Babb MD [address] [place] [address] 04/09/2025 1:20 PM CDT Office Visit [facility] Family & Internal [facility] [place] [address] [place] [address] [place] [address] [place] [address] 09/27/2025 1:40 PM CANDY WRAPPING MACHINE OPERATOR Office Visit [facility] Multispecialty [facility] - [facility] 3 [facility], [address] [place] [address] Araceli Grullon MD [address] [place] [address] documented as of this encounter Goals Goal [...] documented as of this encounter Care Teams Station Captain Relationship Specialty Start Date End Date Constantino Babb MD [address] [place] [address] PCP - General 09/01/16 Odell Munoz MD Three [facility]. [address] [place], [place] [address] Referring Physician VASCULAR SURGERY 03/31/21 Wero Blake MD [address] [place] [address] Consulting Physician PULMONARY DISEASE 03/31/21 Richard Corea MD [address] [facility] [address], [place] [address] CARDIOVASCULAR DISEASE 08/03/22 documented as of this encounter
--- OUTSIDE RECORDS SUMMARY | 2025-01-01 10:14 | XMS_ITS | Encounter Summary ---
Author Organization [facility] [place] [address] Care Team Providers Care Auto Body Repair Teacher Name Role Phone Constantino Babb MD Primary Care Provider [phone] Odell Munoz MD Unavailable Wero Blake MD Unavailable [phone] Richard Corea MD Unavailable [phone] Encounter Details Date Type Department Care Team (Late st Contact Info) Description 02/02/2023 MyChart Message Enc [facility] Medical Group Multispecialty Care - [address] [place] [address] Wero Blake MD [address] [place] [address] [address] [place], [place] [phone] maru Gannon CPAP has Offically Social History Tobacco Use Types Packs/Day Years [...] Master's degree (e.g., MA, MS, Fortino, MEd, PERSONAL LINES AGENT, MEGAN) 06/19/2021 Comments No Sex and Gender Information Value Date Recorded Sex Assigned at Female 10/02/2024 1:30 PM SMALL ANIMAL VETERINARIAN Legal Sex Female 6:48 PM CDT Gender [...] Assessment Author Status No 08/11/2022 5:00 PM SMALL ANIMAL VETERINARIAN Activ e * RETIRED Are you blind or do you have serious difficulty seeing, even when wearing glasses? Answer Date of Assessment Author Status No 08/11/2022 5:00 PM SMALL ANIMAL VETERINARIAN Activ e * Do you have serious [...] Description 04/02/2025 10:00 AM CDT Laboratory Only [facility] Family & Internal Medicine - [place] [address] [place] [address] Constantino Babb MD [address] [place] [address] 04/09/2025 1:20 PM CDT Office Visit [facility] Family & Internal Medicine - [place] [address] [place] [address] Constantino Babb MD [address] [place] [address] 09/27/2025 1:40 PM SMALL ANIMAL VETERINARIAN Office Visit [facility] Multispecialty Care - [facility] 3 [facility], [address] [place] [address] Araceli Grullon MD [address] [place], [place] [address] documented as of this encounter Goals Goal [...] documented as of this encounter Care Teams Auto Body Repair Teacher Relationship Specialty Start Date End Date Constantino Babb MD [address] [place] [address] PCP - General 09/01/16 Odell Munoz MD Three [facility]. [address] [place], [place] [address] Referring Physician VASCULAR SURGERY 03/31/21 Wero Blake MD [address] [place] [address] Consulting Physician PULMONARY DISEASE 03/31/21 Richard Corea MD [facility] [address] CARDIOVASCULAR DISEASE 08/03/22 documented as of this encounter
--- OUTSIDE RECORDS SUMMARY | 2025-01-01 10:14 | XMS_ITS | Encounter Summary ---
Author Organization [facility] Address [facility] [place] [address] Care Team Providers Care Parlor Maid Name Role Phone Constantino Babb MD Primary Care Provider [phone] Odell Munoz MD Unavailable Wero Blake MD Unavailable [phone] Richard Corea MD Unavailable [phone] Encounter Details Date Type Department Care Team (Late st Contact Info) Description 02/26/2023 Therapy Plan [facility] Physical Therapy [address] [place] [address] Rosy Barone, [place] [address] Social History Tobacco Use Types Packs/Day Years [...] Master's degree (e.g., MA, MS, Fortino, MEd, DIRECTOR OF PRODUCT MANAGEMENT, MEGAN) 06/19/2021 Comments No Sex and Gender Information Value Date Recorded Sex Assigned at Female 10/02/2024 1:30 PM EXCAVATOR BACKHOE OPERATOR Legal Sex Female 6:48 PM CDT Gender Identity Not on file Sexual Orientation Not on file documented as of this encounter Functional Status * RETIRED Are you deaf or do you have serious difficulty hearing Answer Date of Assessment Author Status No 08/11/2022 5:00 PM EXCAVATOR BACKHOE OPERATOR Activ e * RETIRED Are you blind or do you have serious difficulty seeing, even when wearing glasses? Answer Date of Assessment Author Status No 08/11/2022 5:00 PM EXCAVATOR BACKHOE OPERATOR Activ e * Do you have [...] Description 04/02/2025 10:00 AM CDT Laboratory Only [facility] Medical Group Family & Internal Medicine [address] [address] Constantino Babb MD [address] [place] [address] 04/09/2025 1:20 PM CDT Office Visit [facility] Family & Internal Medicine - [place] [address] [place] [address] Constantino Babb MD [address] [place] [address] 09/27/2025 1:40 PM EXCAVATOR BACKHOE OPERATOR Office Visit [facility] Multispecialty Care - [facility] 3 [facility], [address] [place] [address] Araceli Grullon MD [address] [place], [place] [address] documented as of this encounter Goals Goal [...] documented as of this encounter Care Teams Parlor Maid Relationship Specialty Start Date End Date Constantino Babb MD [address] [place] [address] PCP - General 09/01/16 Odell Munoz MD Three [facility]. [address] [place], [place] [address] Referring Physician VASCULAR SURGERY 03/31/21 Wero Blake MD 3rd [facility] [address] [place], [place] [address] Consulting Physician PULMONARY DISEASE 03/31/21 Richard Corea MD 12[address] [facility] [address], [place] [address] CARDIOVASCULAR DISEASE 08/03/22 documented as of this encounter
[2025-01-01 10:16] VITALS: BP 110/64; PULSE 68; RESP 16; O2SAT 95
[2025-01-01 10:17] VITALS: PULSE 68; RESP 20; O2SAT 99
--- NOTE | 2025-01-01 10:29 | ED_ITS ---
HPI - Nausea/Vomiting/Diarrhea General Chief complaint: Nausea/Vomiting/Diarrhea Stated complaint: N/V/D Time Seen by Provider: 01/01/25 09:17 Source: patient Mode of arrival: ambulatory Limitations: no limitations History of Present Illness HPI Narrative: This is a 64-year-old female that presents to the emergency department for nausea and vomiting. Reports she takes Ozempic, and this is a daily occurrence for her. Although this episode was worse than usual. She was given a dose of Zofran by EMS with improvement. Denies fevers. Related Data Home Medications Medication Instructions Recorded Confirmed Last Taken Type albuterol sulfate 90 mcg/actuation 2 inh inhalation Q4H PRN Shortness 03/20/22 09/19/23 Unknown History aerosol inhaler Of Breath Or Wheezing atorvastatin 40 mg tablet 40 mg PO QHS 03/20/22 09/19/23 Unknown History calcium carbonate 1,200 mg PO DAILY 03/20/22 09/19/23 Unknown History clotrimazole-betamethasone 1 1 applic topical DAILY PRN Itching 03/20/22 09/19/23 Unknown History %-0.05 % lotion cyclobenzaprine 10 mg tablet 10 mg PO TID PRN Muscle Spasm 03/20/22 09/19/23 Unknown History dulaglutide 3 mg/0.5 mL 3 mg subcut WEEKLY 03/20/22 09/19/23 03/14/22 History subcutaneous pen injector (Trulicity) duloxetine 30 mg capsule,delayed 30 mg PO HS 03/20/22 09/19/23 Unknown History release duloxetine 60 mg capsule,delayed 60 mg PO HS 03/20/22 09/19/23 Unknown History release empagliflozin 10 mg tablet 10 mg PO DAILY 03/20/22 09/19/23 Unknown History (Jardiance) estradiol 0.01% (0.1 mg/gram) 1 applic vaginal 3XW 03/20/22 09/19/23 Unknown History vaginal cream fluticasone furoate 200 1 inh inhalation DAILY 03/20/22 09/19/23 Unknown History mcg-vilanterol 25 mcg/dose inhalation powder (Breo Ellipta) hydrochlorothiazide 25 mg tablet 25 mg PO DAILY 03/20/22 09/19/23 Unknown History insulin detemir U-100 100 unit/mL 60 unit subcut QHS 03/20/22 09/19/23 Unknown History (3 mL) subcutaneous pen (Levemir FlexTouch U-100 Insulin) metformin 1,000 mg tablet 1,000 mg PO BID 03/20/22 09/19/23 03/19/22 20:30 History montelukast 10 mg tablet 10 mg PO QHS 03/20/22 09/19/23 Unknown History olmesartan 20 mg tablet 20 mg PO DAILY 03/20/22 09/19/23 Unknown History omeprazole 20 mg capsule,delayed 20 mg PO HS 03/20/22 09/19/23 03/19/22 20:30 History release ascorbic acid (vitamin C) 1,000 mg 1 g PO HS 03/21/22 09/19/23 03/19/22 20:30 History tablet aspirin 81 mg tablet,delayed 81 mg PO HS 03/21/22 09/19/23 03/20/22 History release cholecalciferol (vitamin D3) 125 125 mcg PO DAILY 03/21/22 09/19/23 Unknown History mcg (5,000 unit) capsule cyanocobalamin (vitamin B-12) 500 500 mcg PO HS 03/21/22 09/19/23 03/19/22 20:30 History mcg tablet (Vitamin B-12) diphenhydramine HCl 25 mg tablet 50 mg PO HS 03/21/22 09/19/23 03/19/22 20:30 History (Benadryl Allergy) echinacea 500 mg capsule 1,000 mg PO HS 03/21/22 09/19/23 03/19/22 History pen needle, diabetic 31 gauge x 03/21/22 09/19/23 Unknown History 5/16 (BD Ultra-Fine Short Pen Needle) pyridoxine (vitamin B6) 500 mg 500 mg PO HS 03/21/22 09/19/23 03/19/22 20:30 History tablet sennosides 8.6 mg tablet (Senokot) 17.2 mg PO HS 03/21/22 09/19/23 03/19/22 20:30 History thiamine HCl (vitamin B1) 250 mg 250 mg PO HS 03/21/22 09/19/23 03/19/22 History tablet vitamin A 10,000 unit tablet 10,000 unit PO HS 03/21/22 09/19/23 03/19/22 20:30 History zinc 50 mg tablet 50 mg PO HS 03/21/22 09/19/23 03/19/22 20:30 History Allergies Allergy/AdvReac Type Severity Reaction Status Date / Time bupropion Allergy Mild Other Verified 09/19/23 16:28 codeine Allergy Mild ITCH, Verified 09/19/23 16:28 NAUSEA propoxyphene Allergy Mild Unknown Verified 09/19/23 16:28 simvastatin Allergy Mild RASH Verified 09/19/23 16:28 tetracycline Allergy Mild RASH Verified 09/19/23 16:28 adhesive tape Allergy Unknown Unknown Verified 09/19/23 16:28 prednisone AdvReac Mild VOMITING Verified 09/19/23 16:28 Review of Systems 2 Review of Systems: CONSTITUTIONAL: Denies fever GASTROINTESTINAL: Reports abdominal pain, nausea, vomiting GENITOURINARY: Denies dysuria or hematuria. All systems reviewed & are unremarkable except as noted in HPI and below PMFSH Past Medical History Medical History COPD (chronic obstructive pulmonary disease) Diabetes Esophageal spasm Fibromyalgia HTN (hypertension) Spigelian hernia Surgical History Surgical History History of bladder surgery History of cholecystectomy Previous back surgery Family History Family History Mother Diabetes mellitus CAD (coronary artery disease) Hydrocephalus Dementia Hypertension Father FHx: coronary artery bypass surgery Schizophrenia Myocardial infarct Hypertension CAD (coronary artery disease) Sibling Diabetes mellitus Hypertension Sibling Diabetes mellitus Hypertension Social History Social History Social History: Patient denies alcohol use, remote tobacco use, remote marijuana Smoking packs per day: 2 Smoking cigarettes per day: 40.0 Years smoked: 35 Smoking pack-years: 70.00 Smoking status: Former smoker Tobacco type: cigarettes Second hand tobacco smoke exposure: No Alcohol intake: never Substance use: never Substance use type: does not use Spiritual care concerns: No Exam 2 Narrative: GENERAL: Well-appearing, well-nourished, and in no acute distress. HEAD: Normocephalic, atraumatic. EYES: EOMI. CHEST: Clear to auscultation. No respiratory distress. No wheezes rales or rhonchi HEART: Regular rate and rhythm. No murmur heard. Normal peripheral pulses. ABDOMEN: Soft, nontender, nondistended, normal active bowel sounds. EXTREMITIES: Normal range of motion. No edema. SKIN: Warm, dry, no rash. NEURO: No focal deficits. Alert and oriented x3. PSYCH: Normal mood and affect Course Course Emergency Course: Patient was updated on her blood work and urine. She reports feeling better after Zofran. Is ready for discharge Vital Signs Vital signs: Vital Signs Pulse Rate 77 01/01/25 09:00 Respiratory Rate 22 H 01/01/25 09:00 Blood Pressure 133/73 01/01/25 09:00 Pulse Oximetry 88 L 01/01/25 09:00 Temperature 97.8 F 01/01/25 10:01 Pulse Rate 68 01/01/25 10:16 Respiratory Rate 16 01/01/25 10:16 Blood Pressure 110/64 01/01/25 10:16 Pulse Oximetry 95 01/01/25 10:16 Oxygen Delivery Room Air 01/01/25 09:04 MDM - Nausea/Vomiting/Diarrhea MDM Narrative Medical decision making narrative: Patient presents to the emergency department for abdominal cramping, nausea, vomiting. Reports this is chronic for her since taking Ozempic. This episode today was worse than usual. She is afebrile and nontoxic appearing. Her vitals are stable. CBC with mild leukocytosis to 10.8. Metabolic panel with normal appearing kidney function. Maybe mild dehydration. Urine without evidence of infection. Patient was updated on her blood work and urine. She reports feeling better after Zofran. Is ready for discharge. She was given warnings to return to the ER Differential Diagnosis Differential diagnosis: Likely food poisoning, gastroenteritis, drug-induced nausea and vomiting and dehydration Lab Data Attestation: I reviewed the patient's lab results. 01/01/25 09:30 01/01/25 09:30 Labs: Lab Results 01/01/25 01/01/25 Range/Units 09:14 09:30 WBC 10.8 H (4.5-10.0) K/mm3 RBC 4.41 (4.2-5.4) M/mm3 Hgb 13.7 (12.0-15.0) g/dL Hct 43.4 (37.0-47.0) % MCV 98.4 (80-100) fl MCH 31.1 (26-34) pg MCHC 31.6 L (32-36) g/dl RDW 13.4 (11.5-14.5) % Plt Count 256 (150-375) k/mm3 MPV 9.7 (7.4-10.4) fl Immature Gran % (Auto) 0.5 (0-0.5) % Neut % (Auto) 78.3 H (45.5-73.1) % Lymph % (Auto) 16.6 L (18.3-44.2) % [place] % (Auto) 3.5 (2.6-8.5) % Eos % (Auto) 0.7 (0-4.4) % Baso % (Auto) 0.4 (0.2-1.2) % Lymph # (Auto) 1.78 (0.9-3.2) K/mm3 [place] # (Auto) 0.4 (0.1-0.6) K/mm3 Eos # (Auto) 0.1 (0-0.3) K/mm3 Baso # (Auto) 0.0 (0.0-0.1) K/mm3 Abs Immat Gran (auto) 0.05 H (0.00-0.031) K/mm3 Absolute Neuts (auto) 8.4 H (1.3-6.7) K/mm3 Absolute Nucleated RBC 0.000 (0.0-0.012) K/mm3 Nucleated RBC % 0.0 (0.0-0.2) % Sodium 140 (137-145) mmol/L Potassium 3.6 (3.4-5.0) mmol/L Chloride 99 (98-107) mmol/L Carbon Dioxide 33 H (22-30) mmol/L Anion Gap 8 (4-12) mmol/L BUN 21 H (7-17) mg/dL Creatinine 0.59 L (0.7-1.0) mg/dL Estim Creat Clear Calc 75 ml/min Estimated GFR > 60 (59 - ) Glucose 114 H (65-110) mg/dL Calcium 9.5 (8.4-10.2) mg/dL Total Bilirubin 0.5 (0.2-1.3) mg/dL AST 43 H (14-36) U/L ALT 26 (6-35) U/L Alkaline Phosphatase 93 (38-126) U/L Total Protein 7.0 (6.3-8.2) g/dL Albumin 4.4 (3.5-5.1) g/dL Lipase 166 (23-300) U/L Urine Color Yellow (Yellow) Urine Appearance Clear (Clear) Urine pH 8.0 (5.0-9.0) Ur Specific [place] 1.016 (1.001-1.035) Urine Protein Negative (Negative) mg/dL Urine Glucose (UA) Negative (Negative) mg/dL Urine Ketones Trace H (Negative) mg/dL Ur Blood (Man) Negative (Negative) Urine Nitrate Negative (Negative) Urine Bilirubin Negative (Negative) Urine Urobilinogen 1.0 (<2.0) mg/dL Add Ur Microanalysis Reviewed Leukocyte Esterase Rfl Trace H (Negative) JERMAINE/UL Urine RBC 0-2 (0-2) /hpf Urine WBC 0-5 (0-3) /hpf Ur Squamous Epith Cells None seen (Few) /hpf Urine Bacteria None seen /hpf Urine Casts 0-2 Critical Care Time Critical Care Time Critical Care Time: No Discharge Plan Discharge Clinical Impression: Nausea & vomiting Qualifiers: Vomiting type: unspecified Qualified Code(s): R11.2 - Nausea with vomiting, unspecified Patient Disposition: Home Condition: Improved Instructions: Acute Nausea and Vomiting (ED) Additional Instructions: Return to the ER if you experience fever, abdominal pain with nausea and vomiting, you are unable to keep down liquids or solids, or any other symptoms that are concerning to you Small, frequent meals. [place] diet. Remain well hydrated. Ondansetron as needed for nausea Follow up with primary care doctor Patient Language: Bel[place]ian Prescriptions: New ondansetron 4 mg tablet,disintegrating 4 mg PO Q8H PRN (Reason: nausea and vomiting) Qty: 10 0RF No Action cephalexin 500 mg capsule 500 mg PO Q6H 10 Days Qty: 40 0RF cyclobenzaprine 10 mg tablet 10 mg PO TID PRN (Reason: Muscle Spasm) atorvastatin 40 mg tablet 40 mg PO QHS clotrimazole-betamethasone 1-0.05 % lotion 1 applic TOPICAL DAILY PRN (Reason: Itching) calcium carbonate 600 mg calcium (1,500 mg) tablet 1,200 mg PO DAILY metformin 1,000 mg tablet 1,000 mg PO BID omeprazole 20 mg capsule,delayed release(DR/EC) 20 mg PO HS montelukast 10 mg tablet 10 mg PO QHS hydrochlorothiazide 25 mg tablet 25 mg PO DAILY estradiol 0.01 % (0.1 mg/gram) cream 1 applic VAGINAL 3XW Rx Instructions: Wednesday, Wednesday, Wednesday albuterol sulfate 90 mcg/actuation HFA aerosol inhaler 2 inh INHALATION Q4H PRN (Reason: Shortness Of Breath Or Wheezing) olmesartan 20 mg tablet 20 mg PO DAILY duloxetine 30 mg capsule,delayed release(DR/EC) 30 mg PO HS duloxetine 60 mg capsule,delayed release(DR/EC) 60 mg PO HS Levemir FlexTouch U100 Insulin 100 unit/mL (3 mL) insulin pen 60 unit SUBCUT QHS Jardiance 10 mg tablet 10 mg PO DAILY fluticasone furoate-vilanterol [Breo Ellipta] 200-25 mcg/dose blister with device 1 inh INHALATION DAILY Trulicity 3 mg/0.5 mL pen injector 3 mg SUBCUT WEEKLY Rx Instructions: Pt takes on Saturdays. (DME) pen needle, diabetic [BD Ultra-Fine Short Pen Needle] 31 gauge x 5/16 needle MISCELLANEOUS cholecalciferol (vitamin D3) 125 mcg (5,000 unit) capsule 125 mcg PO DAILY aspirin 81 mg Tablet,Delayed Release (Dr/Ec) 81 mg PO HS pyridoxine (vitamin B6) 500 mg Tablet 500 mg PO HS thiamine HCl (vitamin B1) 250 mg Tablet 250 mg PO HS echinacea 500 mg Capsule 1,000 mg PO HS Rx Instructions: administer with meals ascorbic acid (vitamin C) 1,000 mg Tablet 1 g PO HS diphenhydramine HCl [Benadryl Allergy] 25 mg Tablet 50 mg PO HS zinc 50 mg Tablet 50 mg PO HS cyanocobalamin (vitamin B-12) [Vitamin B-12] 500 mcg Tablet 500 mcg PO HS sennosides [Senokot] 8.6 mg Tablet 17.2 mg PO HS vitamin A 10,000 unit Tablet 10,000 unit PO HS Mucinex DM 30-600 mg Tablet Extended Release 12 Hr 1 tablet PO Q12HR Qty: 30 0RF diltiazem HCl 180 mg Capsule,Ext.Rel 24h Degradable 180 mg PO QAM Qty: 60 0RF Novolin R Regular U100 Insulin 100 unit/mL solution 5 unit subcut BID Qty: 10 0RF Rx Instructions: check your blood sugar twice a day with the use of dexamethasone. Your blood sugars greater than 300 use 5 units of Novolin. Discontinue use after dexamethasone is complete. (DME) insulin syr/ndl U100 half shaun 0.3 mL 29 gauge x 1/2 syringe See Rx Instructions .Route Qty: 100 0RF Rx Instructions: As directed dexamethasone 2 mg tablet 2 mg PO DAILY Qty: 5 0RF Follow-up/Referrals: Holley,Constantino Olivas MD [Primary Care Provider] -
== END 2025-01-01 10:39 | disposition home or self-care (01) ==
PROVIDERS: Student in an Organized Health Care Education/Training Program; Emergency Provider Physician Assistant; PCP Internal Medicine
DX: R11.2 Nausea with vomiting, unspecified (principal); J44.9 Chronic obstructive pulmonary disease, unspecified; E11.9 Type 2 diabetes mellitus without complications; M79.7 Fibromyalgia; I10 Essential (primary) hypertension; Z79.84 Long term (current) use of oral hypoglycemic drugs
CPT/HCPCS: 36415; 80053; 81001; 83690; 85025; 99283